=== PATIENT | male | born 1955 | race Caucasian/White ===

== ENCOUNTER 2016-09-22 16:08 | Emergency (ER) | payer OTHER ==
[2016-09-22] MEDS ORDERED: NS 0.9% 1000 ML* 1,000 ML IV SCH (16:45)
[2016-09-22 17:09] LABS: Hematocrit 47 % (42-52); Hemoglobin 15.8 g/dl (14.0-18.0); Mean Corpuscular HGB Conc 34 g/dl (31-36); Mean Corpuscular Hemoglobin 29 pg (27-31); Mean Corpuscular Volume 87 fL (80-94); Mean Platelet Volume 9 um3 (7.4-10.4); Red Blood Count 5.41 10^6/ul (4.0-5.4); Red Cell Distribution Width 14 % (10.5-15); White Blood Count 8.9 10^3/ul (3.5-10.8)
[2016-09-22 17:39] LABS: Albumin 4.6 g/dL (3.2-5.2); BUN/Creatinine Ratio 17.1 (8-20); C Reactive Protein 3.55 mg/L (< 5.00); Calcium 9.9 mg/dL (8.6-10.3); EGFR African American 81.5 (>60); EGFR Non-African American 63.4 (>60); Globulin 3.6 g/dL (2-4); Total Bilirubin 0.5 mg/dL (0.2-1.0); Total Protein 8.2 g/dL (6.4-8.9)
[2016-09-22 17:42] LABS: Potassium 3.6 mmol/L (3.5-5.0)
[2016-09-22 17:52] LABS: TSH (Thyroid Stimulating Horm) 1.9 mcIU/mL (0.34-5.60)
--- NOTE | 2016-09-22 18:00 | RAD ---
Edited for charges. indication: Right-sided head and neck pain COMPARISON: CT of the brain dated July 14, [address] scan of the brain and c-spine was performed without intravenous contrast enhancement. Contiguous axial sections were obtained from the lung apices through the vertex. BRAIN: The ventricles, cisterns and sulci are within normal limits. No significant focal abnormality or mass effect is seen. The vázquez-white differentiation is adequately maintained. There is no evidence for intracranial hemorrhage. No significant bony abnormality is present. The mastoid air cells are appropriately aerated. The visualized paranasal sinuses are clear. C-SPINE: On the sagittal view images the vertebral bodies and bilateral facet joints are correctly aligned. The dens is intact and the atlantoaxial interval is not widened. Mild degenerative changes of the cervical spine include loss of intervertebral disc height. There is no hyperdense material in the cervical canal to indicate hemorrhage. The visualized musculature and soft tissues are normal. There is no gross lymphadenopathy visualized. Coarse atherosclerotic calcification is noted at the right worse than left carotid bulbs and at the visualized portions of the aortic arch. The visualized portion of the lung apices are clear. IMPRESSION: 1. No calvarial fracture or acute intracranial hemorrhage. 2. Mild multilevel degenerative changes of the cervical spine without evidence of acute fracture or dislocation. MTDD
[2016-09-22] MEDS ORDERED: Iohexol 350* (CONTRAST) 500 ML MDV IV ONE ×2 (18:30→18:33)
[2016-09-22] MEDS ORDERED: diPHENhydraMINE IV* 50 MG/ML 1 ml VIAL (BENADRYL) ONE (18:48)
[2016-09-22] MEDS ORDERED: diPHENhydraMINE IV* 50 MG/ML 1 ml VIAL (BENADRYL) IV ONE (18:48)
[2016-09-22] MEDS ORDERED: methylPREDNISolone 125 MG* 2 ML VIAL IV ONE (18:48)
[2016-09-22] MEDS ORDERED: NS 0.9% 1000 ML* 1,000 ML IV ONE (18:48)
[2016-09-22] MEDS ORDERED: methylPREDNISolone 125 MG* 2 ML VIAL ONE (18:49)
[2016-09-22] MEDS ORDERED: Aspirin Low Dose CHEW TAB* 81 MG PO ONE (18:55)
[2016-09-22] MEDS ORDERED: Potassium Chlor TAB* 20 MEQ TAB.ER PO ONE (18:55)
[2016-09-22] MEDS ORDERED: Aspirin Low Dose CHEW TAB* 81 MG ONE (18:57)
--- NOTE | 2016-09-22 19:00 | RAD ---
INDICATION: Chest pain COMPARISON: CTA chest, abdomen and pelvis dated August 12, 2015 TECHNIQUE: Axial source images were acquired following the administration of 83 mL Omnipaque [address] angiographic technique. Coronal and sagittal reconstructed images were constructed and reviewed. FINDINGS: There there are no filling defects in the pulmonary arteries to indicate acute pulmonary embolic disease. There are mild bibasilar hypoventilatory changes as well as pleural-based based linear density at the lateral right lung base. There are no focal infiltrates or effusions. There are no pulmonary parenchymal masses. The heart is normal in size. There is no evidence of pericardial effusion. There is no evidence of aortic aneurysm or dissection. There is no mediastinal, hilar, or axillary lymphadenopathy. Mild degenerative changes of the thoracic spine include loss of intervertebral disc height. There is a small hiatal hernia. Limited views of the upper abdomen show no abnormalities. IMPRESSION: No CT of evidence of pulmonary embolism or other acute thoracic abnormality.
[2016-09-22 19:35] LABS: Urine Bilirubin Negative (Negative); Urine Glucose Negative (Negative); Urine Nitrite Negative (Negative)
--- NOTE | 2016-09-22 20:28 | RAD ---
CPT II: CPT II Codes: 3100F INDICATION: Right occiput and neck pain COMPARISON: None TECHNIQUE: A CT angiogram of the head and neck was performed with 80 cc of Omnipaque 350. Contiguous axial sections were obtained from the thoracic inlet through the [place]. Images were reconstructed in the sagittal, coronal planes and in a 3-D volume rendered format. The distal cervical internal carotid artery diameter is used as the denominater for stenosis measurement. CTA NECK: There is appearance of either narrowing or focal occlusion of the proximal left subclavian artery (axial image 21 and coronal image 17). Alternatively this appearance could be the consequence of streak artifact from the contrast-filled neighboring left subclavian and brachiocephalic veins. The common and internal carotid arteries are patent without hemodynamically significant stenosis. Right: Below the bifurcation the common carotid artery measures 7 mm in diameter. There is coarsely calcified atherosclerosis of the carotid bulb that narrows the right internal carotid artery to approximately 3.7 cm in diameter. This yields approximately 50% narrowing at this location. Distally there is adequate filling of the internal carotid artery. Left: Below the bifurcation the left common carotid artery measures 7 mm in diameter and immediately beyond the bifurcation the left internal carotid artery measures 5 mm in diameter yielding approximately 28% degree narrowing. The vertebral arteries are patent without gross abnormality. CTA of the brain: The left anterior cerebral artery is extremely diminutive relative to the right. The left anterior communicating artery of the [place] (image 210 through 212) is extremely diminutive. Bilaterally the MCA fill adequately with contrast. The more distal branches of the left MCA seen to exhibit a slight reduction in filling relative to the contralateral side. The left posterior communicating artery appears to be absent. The vertebral, basilar and posterior cerebral arteries appear patent without high grade stenosis or occlusion. No focal aneurysm or vascular malformation is seen. IMPRESSION: 1. Coarsely calcified atherosclerosis at the right carotid bulb causes approximately 50% luminal narrowing. Further objective evidence of hemodynamically significant stenosis can be obtained with nonemergent carotid ultrasound. 2. Questionable filling defect at the origin of the left subclavian artery. Please correlate to signs and symptoms of subclavian steal syndrome as well as any potential flow reversal identified in the left vertebral artery on carotid ultrasound. 3. The left anterior cerebral artery and anterior communicating artery of the [place] are extremely diminutive relative to the contralateral side. Furthermore, there is an overall appearance of reduced arterial filling in the distal branches of the left MCA distribution relative to the right. If the patient is exhibiting focal neurologic deficits objective evidence of acute infarction can be made with MRI of the brain.
--- NOTE | 2016-09-22 22:38 | RAD ---
HISTORY: Chest pain that radiates to the right shoulder COMPARISONS: CT abdomen pelvis August 12, 2015 TECHNIQUE: Multiple transverse and longitudinal ultrasound images were obtained of the right upper quadrant. FINDINGS: LIVER: The liver is normal in dimensions and echogenicity. Normal hepatic and portal venous blood flow is duplicated with color flow imaging. There is no gross intrahepatic biliary duct dilatation. GALLBLADDER AND EXTRAHEPATIC BILIARY DUCT: The gallbladder is normal in appearance without intraluminal stones or other soft tissue masses. There is no pericholecystic fluid or gallbladder wall thickening. The common bile duct measures a maximum diameter of 3 mm. PANCREAS: No meaningful evaluation of the pancreas isn't evaluated due to overlying bowel gas. RIGHT KIDNEY: The right kidney is normal in size, morphology and echogenicity. IMPRESSION: Normal ultrasound of the right upper quadrant.
--- NOTE | 2016-09-22 23:10 | ED ---
Tu Ness Rebecca, scribed for Jelani Dawson MD on 09/22/16 at 1638 . Headache - HPI Summary HPI Summary: Pt is a 61 y/o M who presents to ED c/o GARZA. GARZA began gradually this morning and has been intermittent since onset. GARZA is in the right temporal region with radiation into the neck and back. GARZA is characterized as tightness and currently , GARZA is resolved. GARZA aggravated by woodworking, alleviated by spontaneous resolution. Additionally c/o decreased sensation on the scalp, dizziness and intermittent CP for 5 days. CP is midsternal, characterized as pressure. Experienced CP earlier today. Sx aggravated by stress, alleviated by eating. Denies numbness, abdominal pain, calf pain, SOB and diaphoresis. Takes Metoprolol (25 mg), ASA, Xanax. Radiotelegraphist is Dr. Cadte, who ran a nuclear stress test in February. PSHx cardiac stent (2006). PMHx herniated discs in the C-spine. - History Of Current Complaint Chief Complaint: EDChestPainROMI Stated Complaint: HEADACHE Time Seen by Provider: 09/22/16 16:23 Hx Obtained From: Patient Onset/Duration: Gradual Onset Initially Headache Was: Initial Pain Scale(0-10)= - 6/10, Moderate Currently Pain Is: Current Pain Scale(0-10)= - 0/10 Timing: Intermittent, Lasting: Location of Headache: Temporal - Right Radiates to: Neck and back Aggravating Factor: Other - Woodworking Allevating Factors: Other (Noted In Comments) - Spontaneous resolution Associated Signs And Symptoms: Dizziness, Other (Noted In Comments) - Intermittent CP - Allergies/Home Medications Allergies/Adverse Reactions: Allergies Allergy/AdvReac Type Severity Reaction Status Date / Time Tetracycline Allergy Mild Itching Verified 02/24/16 13:18 [place] Allergy Unknown Unknown Verified 02/24/16 13:[address] dye Allergy aggitation Uncoded 09/22/16 19:37 PMH/Surg Hx/FS Hx/Imm Hx Endocrine/Hematology History: Denies: Hx Diabetes Cardiovascular History: 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, midsternal, upper ribs Denies: Hx Congestive Heart Failure, Hx Coronary Artery Disease, Hx Hypercholesterolemia, Hx Hypertension, Hx Myocardial Infarction, Hx Pacemaker/ ICD, Hx Valvular Heart Disease Respiratory History: Denies: Hx Asthma, Hx Chronic Obstructive Pulmonary Disease (COPD) History: Denies: Hx Dialysis, Hx Renal Disease Musculoskeletal History: Reports: Other Musculoskeletal History - Herniated discs in the C-spine Sensory History: Reports: Hx Contacts or Glasses Denies: Hx Hearing Aid Opthamlomology History: Reports: Hx Contacts or Glasses Psychiatric History: Denies: Hx Panic Disorder - Surgical History Surgery Procedure, Year, and Place: cardiac stent 2006 TAXIS EXPRESS CLEARED FOR 1.5 OR 3T SGF 700G/CM PER [place] IN NORMAL OPERATING SCAN MODE Infectious Disease History: No Infectious Disease History: Denies: Traveled Outside the [place] in Last 30 Days - Family History Known Family History: Negative: Cardiac Disease, Hypertension - Social History Alcohol Use: None Substance Use Type: Reports: None Smoking Status (MU): Never Smoked Tobacco Review of Systems Negative: Skin Diaphoresis Positive: Chest Pain - Intermittent Negative: Shortness Of Breath Negative: Abdominal Pain Positive: Other - Denies calf pain Neurological: Other - Decreased sensation on the scalp, dizziness Positive: Headache - intermittent, currently resolved. Negative: Numbness All Other Systems Reviewed And Are Negative: Yes Physical Exam Triage Information Reviewed: Yes Vital Signs On Initial Exam: Initial Vitals Temp Pulse Resp BP Pulse Ox 99.4 F 125 16 157/95 98 09/22/16 16:15 09/22/16 16:15 09/22/16 16:15 09/22/16 16:15 09/22/16 16:15 Vital Signs Reviewed: Yes Appearance: Positive: Well-Appearing, No Pain Distress Skin: Positive: Warm, Skin Color Reflects Adequate Perfusion, Dry Head/Face: Positive: Normal Head/Face Inspection Eyes: Positive: EOMI, LESIA ENT: Positive: Normal ENT inspection Neck: Positive: Supple, Nontender Respiratory/Lung Sounds: Positive: Clear to Auscultation, Breath Sounds Present Cardiovascular: Positive: RRR Abdomen Description: Positive: Nontender, Soft Bowel Sounds: Positive: Present Musculoskeletal: Positive: Normal, Strength/ROM Intact Neurological: Positive: Normal, Sensory/Motor Intact, Alert, Oriented to Person Place, Time Psychiatric: Positive: Affect/Mood Appropriate Diagnostics - Vital Signs Vital Signs Temp Pulse Resp BP Pulse Ox 09/22/16 16:15 99.4 F 125 16 157/95 98 - Laboratory Lab Results: Lab Results 09/22/16 09/22/1617 Range/Units 16:40 16:40 16:40 WBC 8.9 (3.5-10.8) 10^3/ul RBC 5.41 H (4.0-5.4) 10^6/ul Hgb 15.8 (14.0-18.0) g/dl Hct 47 (42-52) % MCV 87 (80-94) fL MCH 29 (27-31) pg MCHC 34 (31-36) g/dl RDW 14 (10.5-15) % Plt Count 234 (150-450) 10^3/ul MPV 9 (7.4-10.4) um3 Neut % (Auto) 69.0 (38-83) % Lymph % (Auto) 21.3 L (25-47) % [place] % (Auto) 7.6 (1-9) % Eos % (Auto) 1.7 (0-6) % Baso % (Auto) 0.4 (0-2) % Absolute Neuts (auto) 6.2 (1.5-7.7) 10^3/ul Absolute Lymphs (auto) 1.9 (1.0-4.8) 10^3/ul Absolute Monos (auto) 0.7 (0-0.8) 10^3/ul Absolute Eos (auto) 0.2 (0-0.6) 10^3/ul Absolute Basos (auto) 0 (0-0.2) 10^3/ul Absolute Nucleated RBC 0 10^3/ul Nucleated RBC % 0 INR (Anticoag Therapy) 0.91 (0.89-1.11) APTT 29.1 (26.0-36.3) seconds D-Dimer, Quantitative 261 H (Less Than 230) ng/mL Sodium 136 (133-145) mmol/L Potassium 3.6 (3.5-5.0) mmol/L Chloride 104 (101-111) mmol/L Carbon Dioxide 26 (22-32) mmol/L Anion Gap 6 (2-11) mmol/L BUN 20 (6-24) mg/dL Creatinine 1.17 (0.67-1.17) mg/dL Est GFR ( Amer) 81.5 (>60) Est GFR (Non-Af Amer) 63.4 (>60) BUN/Creatinine Ratio 17.1 (8-20) Glucose 97 (70-100) mg/dL Lactic Acid (0.5-2.0) mmol/L Calcium 9.9 (8.6-10.3) mg/dL Magnesium 2.0 (1.9-2.7) mg/dL Total Bilirubin 0.50 (0.2-1.0) mg/dL AST 40 H (13-39) U/L ALT 22 (7-52) U/L Alkaline Phosphatase 95 (34-104) U/L Total Creatine Kinase 383 H (10-223) U/L CK-MB (CK-2) 4.0 (0.6-6.3) ng/mL Troponin I 0.00 (<0.04) ng/mL C-Reactive Protein 3.55 (< 5.00) mg/L B-Natriuretic Peptide ( - 100) pg/mL Total Protein 8.2 (6.4-8.9) g/dL Albumin 4.6 (3.2-5.2) g/dL Globulin 3.6 (2-4) g/dL Albumin/Globulin Ratio 1.3 (1-3) Lipase 21 (11.0-82.0) U/L TSH 1.90 (0.34-5.60) mcIU/mL Urine Color Urine Appearance Urine pH (5-9) Ur Specific [place] (1.010-1.030) Urine Protein (Negative) Urine Ketones (Negative) Urine Blood (Negative) Urine Nitrate (Negative) Urine Bilirubin (Negative) Urine Urobilinogen (Negative) Ur Leukocyte Esterase (Negative) Urine Glucose (Negative) 09/22/16 09/22/16 09/22/16 Range/Units 16:40 16:40 19:20 WBC (3.5-10.8) 10^3/ul RBC (4.0-5.4) 10^6/ul Hgb (14.0-18.0) g/dl Hct (42-52) % MCV (80-94) fL MCH (27-31) pg MCHC (31-36) g/dl RDW (10.5-15) % Plt Count (150-450) 10^3/ul MPV (7.4-10.4) um3 Neut % (Auto) (38-83) % Lymph % (Auto) (25-47) % [place] % (Auto) (1-9) % Eos % (Auto) (0-6) % Baso % (Auto) (0-2) % Absolute Neuts (auto) (1.5-7.7) 10^3/ul Absolute Lymphs (auto) (1.0-4.8) 10^3/ul Absolute Monos (auto) (0-0.8) 10^3/ul Absolute Eos (auto) (0-0.6) 10^3/ul Absolute Basos (auto) (0-0.2) 10^3/ul Absolute Nucleated RBC 10^3/ul Nucleated RBC % INR (Anticoag Therapy) (0.89-1.11) APTT (26.0-36.3) seconds D-Dimer, Quantitative (Less Than 230) ng/mL Sodium (133-145) mmol/L Potassium (3.5-5.0) mmol/L Chloride (101-111) mmol/L Carbon Dioxide (22-32) mmol/L Anion Gap (2-11) mmol/L BUN (6-24) mg/dL Creatinine (0.67-1.17) mg/dL Est GFR ( Amer) (>60) Est GFR (Non-Af Amer) (>60) BUN/Creatinine Ratio (8-20) Glucose (70-100) mg/dL Lactic Acid 1.0 (0.5-2.0) mmol/L Calcium (8.6-10.3) mg/dL Magnesium (1.9-2.7) mg/dL Total Bilirubin (0.2-1.0) mg/dL AST (13-39) U/L ALT (7-52) U/L Alkaline Phosphatase (34-104) U/L Total Creatine Kinase (10-223) U/L CK-MB (CK-2) (0.6-6.3) ng/mL Troponin I (<0.04) ng/mL C-Reactive Protein (< 5.00) mg/L B-Natriuretic Peptide 23 ( - 100) pg/mL Total Protein (6.4-8.9) g/dL Albumin (3.2-5.2) g/dL Globulin (2-4) g/dL Albumin/Globulin Ratio (1-3) Lipase (11.0-82.0) U/L TSH (0.34-5.60) mcIU/mL Urine Color Yellow Urine Appearance Clear Urine pH 5.0 (5-9) Ur Specific [place] 1.033 H (1.010-1.030) Urine Protein Negative (Negative) Urine Ketones Negative (Negative) Urine Blood Negative (Negative) Urine Nitrate Negative (Negative) Urine Bilirubin Negative (Negative) Urine Urobilinogen Negative (Negative) Ur Leukocyte Esterase Negative (Negative) Urine Glucose Negative (Negative) 09/22/16 Range/Units 21:05 WBC (3.5-10.8) 10^3/ul RBC (4.0-5.4) 10^6/ul Hgb (14.0-18.0) g/dl Hct (42-52) % MCV (80-94) fL MCH (27-31) pg MCHC (31-36) g/dl RDW (10.5-15) % Plt Count (150-450) 10^3/ul MPV (7.4-10.4) um3 Neut % (Auto) (38-83) % Lymph % (Auto) (25-47) % [place] % (Auto) (1-9) % Eos % (Auto) (0-6) % Baso % (Auto) (0-2) % Absolute Neuts (auto) (1.5-7.7) 10^3/ul Absolute Lymphs (auto) (1.0-4.8) 10^3/ul Absolute Monos (auto) (0-0.8) 10^3/ul Absolute Eos (auto) (0-0.6) 10^3/ul Absolute Basos (auto) (0-0.2) 10^3/ul Absolute Nucleated RBC 10^3/ul Nucleated RBC % INR (Anticoag Therapy) (0.89-1.11) APTT (26.0-36.3) seconds D-Dimer, Quantitative (Less Than 230) ng/mL Sodium (133-145) mmol/L Potassium (3.5-5.0) mmol/L Chloride (101-111) mmol/L Carbon Dioxide (22-32) mmol/L Anion Gap (2-11) mmol/L BUN (6-24) mg/dL Creatinine (0.67-1.17) mg/dL Est GFR ( Amer) (>60) Est GFR (Non-Af Amer) (>60) BUN/Creatinine Ratio (8-20) Glucose (70-100) mg/dL Lactic Acid (0.5-2.0) mmol/L Calcium (8.6-10.3) mg/dL Magnesium (1.9-2.7) mg/dL Total Bilirubin (0.2-1.0) mg/dL AST (13-39) U/L ALT (7-52) U/L Alkaline Phosphatase (34-104) U/L Total Creatine Kinase (10-223) U/L CK-MB (CK-2) (0.6-6.3) ng/mL Troponin I 0.01 (<0.04) ng/mL C-Reactive Protein (< 5.00) mg/L B-Natriuretic Peptide ( - 100) pg/mL Total Protein (6.4-8.9) g/dL Albumin (3.2-5.2) g/dL Globulin (2-4) g/dL Albumin/Globulin Ratio (1-3) Lipase (11.0-82.0) U/L TSH (0.34-5.60) mcIU/mL Urine Color Urine Appearance Urine pH (5-9) Ur Specific [place] (1.010-1.030) Urine Protein (Negative) Urine Ketones (Negative) Urine Blood (Negative) Urine Nitrate (Negative) Urine Bilirubin (Negative) Urine Urobilinogen (Negative) Ur Leukocyte Esterase (Negative) Urine Glucose (Negative) Result Diagrams: 09/22/16 16:40 09/22/16 16:40 Lab Statement: Any lab studies that have been ordered have been reviewed, and results considered in the medical decision making process. - CT Brain CT CT Interpretation Completed By: Radiologist - 1. No calvarial fracture or acute intracranial hemorrhage. 2. Mild multilevel degenerative changes of the cervical spine without evidence of acute fracture or dislocation. Chest/Thorax CTA CT Interpretation Completed By: Radiologist - No CT of evidence of pulmonary embolism or other acute thoracic abnormality. Head CTA CT Interpretation Completed By: Radiologist - 1. Coarsely calcified atherosclerosis at the right carotid bulb causes approximately 50% luminal narrowing. Further objective evidence of hemodynamically significant stenosis can be obtained with nonemergent carotid ultrasound. 2. Questionable filling defect at the origin of the left subclavian artery. Please correlate to signs and symptoms of subclavian steal syndrome as well as any potential flow reversal identified in the left vertebral artery on carotid ultrasound. 3. The left anterior cerebral artery and anterior communicating artery of the [place] are extremely diminutive relative to the contralateral side. Furthermore, there is an overall appearance of reduced arterial filling in the distal branches of the left MCA distribution relative to the right. If the patient is exhibiting focal neurologic deficits objective evidence of acute infarction can be made with MRI of the brain. - Ultrasound No standard instances Ultrasound Interpretation Completed By: Radiologist - Gallbladder US - Normal ultrasound of the right upper quadrant. - EKG 1703 Cardiac Rate: Tachycardia - 106 bpm EKG Rhythm: Sinus Tachycardia ST Segment: Non-Specific - Flipped T wave in leads III and aVF EKG Interpretation: No acute ischemia 1843 Cardiac Rate: Tachycardia - 126 bpm EKG Rhythm: Sinus Tachycardia ST Segment: Non-Specific - Depressed STs in V2-V5 Ectopy: None Re-Evaluation - Re-Evaluation First Eval Re-Evaluation Time: 18:45 Change: Worse Comment: Pt reports that after the second contrast injection, he began experiencing chest pain as well as UE and LE spasms, which he states as having occurred in the past. Pt was administered Benadryl and Solu-Medrol. Second Eval Re-Evaluation Time: 19:06 Change: Worse Comment: CP has resolved but now he is speaking slowly. Third Eval Re-Evaluation Time: 19:16 Change: Improved Comment: Pt reports he is feeling better. Fourth Eval Re-Evaluation Time: 21:45 Change: Improved Comment: Discussed current results and findings. Pt is feeling significantly better than previously. Fifth Eval Re-Evaluation Time: 23:06 Change: Improved Comment: Pt is doing markedly better. Discussed D/C plan with pt who understands and is agreeable with this plan. Headache Course/Dx - Course Assessment/Plan: DISCUSSED RESULTS WITH PATIENT/. PATIENT RELATES HE HAS HAD SIMILAR CHEST PAINS ON AND OFF FOR YEARS. GARZA GONE IN ED. DISCUSSED CTA HEAD/ NECK RESULTS WITH DR FANG, NEUROLOGY. PATIENT WILL CONTACT HIS MEDICAID BILLER FOR F/U AND WILL RETURN IF WORSE. DISCHARGE HOME STABLE. - Diagnoses Provider Diagnoses: Chest pain, Head ache - Physician Notifications Discussed Care Of Patient With: Dr. Peck, hospitalist, who will ask Dr. Osullivan (night hospitalist) to evaluate pt. Dr. Osullivan at 2010 who suggests a repeat Troponin be taken. Discussed CTA head/neck results with Dr. Fang, neurologist, at 2124, who stated that he could not correlate any of the complaints of the patient with the scan findings. Time Discussed With Above Provider: 19:07 Discharge - Discharge Plan Condition: Stable Disposition: HOME Patient Education Materials: Chest Pain (ED), Neck Pain (ED), General Headache (ED) Referrals: [facility] [employer]AD[facility]leen [Primary Care Provider] - Additional Instructions: FOLLOW UP WITH YOUR PRIMARY CARE DOCTOR AND YOUR MEDICAID BILLER. RETURN TO THE EMERGENCY DEPARTMENT FOR ANY WORSENING OF YOUR CONDITION OR QUESTIONS OR CONCERNS. The documentation as recorded by the Tu marroquin Rebecca accurately reflects the service I personally performed and the decisions made by me, Jelani Dawson MD.
[2016-09-22 23:49] VITALS: BP 135/75
== END 2016-09-22 23:47 | disposition home or self-care (01) ==
LOC: ED 16:08
DX: R51 Headache (principal); R42 Dizziness and giddiness; R07.9 Chest pain, unspecified
CPT/HCPCS: 36415; 70450; 70496; 70498; 71275; 72125; 76705; 80053; 81003; 82550; 82553; 83605; 83690; 83735; 83880; 84443; 84484; 85025; 85379; 85610; 85730; 86140; 93005; 96374; 96375; 99284; A9270-GY; J1200; J2930; Q9967

== ENCOUNTER 2016-09-23 20:10 | Inpatient (IN) | payer OTHER ==
[2016-09-23] MEDS ORDERED: Morphine INJ* 4 MG/ML 1 ML CARPUJECT ONE (20:15)
[2016-09-23] MEDS ORDERED: Morphine INJ* 4 MG/ML 1 ML CARPUJECT IV ONE (20:15)
[2016-09-23] MEDS ORDERED: LORazepam INJ* 2 MG/ML 1 ML VIAL ONE (20:15)
[2016-09-23] MEDS ORDERED: LORazepam INJ* 2 MG/ML 1 ML VIAL IV PUSH ONE (20:16)
[2016-09-23] MEDS ORDERED: Heparin for STEMI(*) 5,000 UNITS/ML 1 ML VIAL IV ONE (20:17)
[2016-09-23] MEDS ORDERED: Heparin VIAL(*) 5000 UNITS/ML VIAL (FIVE THOUSAND) ONE (20:17)
[2016-09-23] MEDS ORDERED: Ticagrelor* 90 MG TAB PO ONE ×2 (20:17)
[2016-09-23 20:22] LABS: Hematocrit 42 % (42-52); Hemoglobin 14.1 g/dl (14.0-18.0); Mean Corpuscular HGB Conc 34 g/dl (31-36); Mean Corpuscular Hemoglobin 29 pg (27-31); Mean Corpuscular Volume 87 fL (80-94); Mean Platelet Volume 8 um3 (7.4-10.4); Red Blood Count 4.84 10^6/ul (4.0-5.4); Red Cell Distribution Width 14 % (10.5-15); White Blood Count 20.8 10^3/ul (3.5-10.8)
[2016-09-23 20:25] LABS: Add Diff/Slide Review? Slide Review Added; Comments Flag Yes
[2016-09-23] MEDS ORDERED: Heparin 2 UNITS/ML IVPREMIX* 3,000 ML IV ONE (20:30)
[2016-09-23] MEDS ORDERED: Iohexol 350 (CONTRAST) 200 ML MDV IV ONE (20:30)
[2016-09-23] MEDS ORDERED: Lidocaine 1% INJ* 10 MG/ML 30 ML SDV ONE (20:30)
[2016-09-23] MEDS ORDERED: methylPREDNISolone 125 MG* 2 ML VIAL ONE (20:36)
[2016-09-23 20:38] LABS: Albumin 4.1 g/dL (3.2-5.2); BUN/Creatinine Ratio 16.1 (8-20); EGFR African American 80.7 (>60); EGFR Non-African American 62.8 (>60); Globulin 2.9 g/dL (2-4); Potassium 3.4 mmol/L (3.5-5.0); Total Bilirubin 0.4 mg/dL (0.2-1.0)
[2016-09-23 20:39] LABS: Troponin I 0.01 ng/mL (<0.04)
--- NOTE | 2016-09-23 20:40 | RAD ---
Indication: Chest pain, shortness of breath. STEMI. September 22, 2016 CT. Comparison: September 22, 2016 CT. Technique: Upright AP 2021 hours Report: Cutaneous pacemaker pads in place. Mild cardiomegaly. Unremarkable central pulmonary vasculature. Grossly clear lungs and pleural spaces. IMPRESSION: Mild cardiomegaly without compelling evidence for pulmonary edema.
[2016-09-23] MEDS ORDERED: Iodixanol* (CONTRAST) 320 MG/ML 100 ML SDV ONE (20:44)
--- NOTE | 2016-09-23 20:45 | ED ---
Chandrakant Ness Benjamin, scribed for Joey Coulter MD on 09/23/16 at 202 . HPI Chest Pain - HPI Summary HPI Summary: 61yo male BIB EMS for severe CP. Per EMS, pain initially started with burning sensation at mid sternal chest that wrapped around to right armpit. Pt was seen at [facility] ED yesterday for GARZA. Unable to obtain full history due to pt in pain. EKG taken by EMS shown STEMI at V2 and V3. - History of Current Complaint Chief Complaint: EDChestPainROMI Hx Obtained From: EMS Hx From Patient Unobtainable Due To: Extremis Onset/Duration: Started Hours Ago, Still Present Timing: Constant Initial Severity: Severe Current Severity: Severe Pain Intensity: 10 Chest Pain Location: Mid Sternal Chest Pain Radiates: Yes Chest Pain Radiates To:: Arm - right Character: Burning Aggravating Factor(s): Nothing Alleviating Factor(s): Nothing Associated Signs and Symptoms: Positive: Shortness of Breath - Risk Factors AMI/ACS Risk Factors: Myocardial Infarction - Additional Pertinent History Previous Visit Within 72 Hours for the same complaint: ED - Allergy/Home Medications Allergies/Adverse Reactions: Allergies Allergy/AdvReac Type Severity Reaction Status Date / Time Tetracycline Allergy Mild Itching Verified 02/24/16 13:18 Belladonna Allergy Unknown Unknown Verified 02/24/16 13:[address] dye Allergy aggitation Uncoded 09/22/16 19:37 PMH/Surg Hx/FS Hx/Imm Hx Previously Healthy: No Endocrine/Hematology History: Denies: Hx Diabetes Cardiovascular History: 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, midsternal, upper ribs Denies: Hx Congestive Heart Failure, Hx Coronary Artery Disease, Hx Hypercholesterolemia, Hx Hypertension, Hx Myocardial Infarction, Hx Pacemaker/ ICD, Hx Valvular Heart Disease Respiratory History: Denies: Hx Asthma, Hx Chronic Obstructive Pulmonary Disease (COPD) History: Denies: Hx Dialysis, Hx Renal Disease Musculoskeletal History: Reports: Other Musculoskeletal History - Herniated discs in the C-spine Sensory History: Reports: Hx Contacts or Glasses Denies: Hx Hearing Aid Opthamlomology History: Reports: Hx Contacts or Glasses Psychiatric History: Denies: Hx Panic Disorder - Surgical History Surgery Procedure, Year, and Place: cardiac stent 2006 TAXIS EXPRESS CLEARED FOR 1.5 OR 3T SGF 700G/CM PER [employer] IN NORMAL OPERATING SCAN MODE - Family History Known Family History: Positive: Unknown Negative: Cardiac Disease, Hypertension - Social History Alcohol Use: None Substance Use Type: Reports: None Smoking Status (MU): Never Smoked Tobacco Review of Systems Constitutional: Negative Eyes: Negative ENT: Negative Positive: Chest Pain Positive: Shortness Of Breath Gastrointestinal: Negative Genitourinary: Negative Musculoskeletal: Negative Skin: Negative Neurological: Negative Psychological: Normal All Other Systems Reviewed And Are Negative: Yes Physical Exam Triage Information Reviewed: Yes Vital Signs On Initial Exam: Initial Vitals Resp 20 09/23/16 20:25 Vital Signs Reviewed: Yes Appearance: Positive: Ill-Appearing, Pain Distress - moderate pain Skin: Positive: Warm, Diaphoretic Head/Face: Positive: Normal Head/Face Inspection Eyes: Positive: LESIA ENT: Positive: Hearing grossly normal Neck: Positive: Supple Respiratory/Lung Sounds: Positive: Clear to Auscultation, Breath Sounds Present Cardiovascular: Positive: RRR Abdomen Description: Positive: Nontender, No Organomegaly, Soft Bowel Sounds: Positive: Present Musculoskeletal: Positive: Strength/ROM Intact Neurological: Positive: Sensory/Motor Intact, Alert, Oriented to Person Place, Time Psychiatric: Positive: Anxious Diagnostics - Vital Signs Vital Signs Temp Pulse Resp BP Pulse Ox 09/23/16 20:28 98.7 F 71 22 135/77 100 09/23/16 20:25 20 - Laboratory Lab Results: Lab Results 09/23/16 09/23/16 09/23/16 Range/Units 20:12 20:12 20:12 WBC 20.8 H (3.5-10.8) 10^3/ul RBC 4.84 (4.0-5.4) 10^6/ul Hgb 14.1 (14.0-18.0) g/dl Hct 42 (42-52) % MCV 87 (80-94) fL MCH 29 (27-31) pg MCHC 34 (31-36) g/dl RDW 14 (10.5-15) % Plt Count 281 (150-450) 10^3/ul MPV 8 (7.4-10.4) um3 Neut % (Auto) 68.0 (38-83) % Lymph % (Auto) 22.3 L (25-47) % Platte % (Auto) 8.9 (1-9) % Eos % (Auto) 0.3 (0-6) % Baso % (Auto) 0.5 (0-2) % Absolute Neuts (auto) 14.1 H (1.5-7.7) 10^3/ul Absolute Lymphs (auto) 4.6 (1.0-4.8) 10^3/ul Absolute Monos (auto) 1.9 H (0-0.8) 10^3/ul Absolute Eos (auto) 0.1 (0-0.6) 10^3/ul Absolute Basos (auto) 0.1 (0-0.2) 10^3/ul Absolute Nucleated RBC 0 10^3/ul Nucleated RBC % 0 Sodium 138 (133-145) mmol/L Potassium 3.4 L (3.5-5.0) mmol/L Chloride 107 (101-111) mmol/L Carbon Dioxide 21 L (22-32) mmol/L Anion Gap 10 (2-11) mmol/L BUN 19 (6-24) mg/dL Creatinine 1.18 H (0.67-1.17) mg/dL Est GFR ( Amer) 80.7 (>60) Est GFR (Non-Af Amer) 62.8 (>60) BUN/Creatinine Ratio 16.1 (8-20) Glucose 132 H (70-100) mg/dL Lactic Acid 2.1 H* (0.5-2.0) mmol/L Calcium 9.0 (8.6-10.3) mg/dL Total Bilirubin 0.40 (0.2-1.0) mg/dL AST 34 (13-39) U/L ALT 19 (7-52) U/L Alkaline Phosphatase 77 (34-104) U/L Troponin I 0.01 (<0.04) ng/mL Total Protein 7.0 (6.4-8.9) g/dL Albumin 4.1 (3.2-5.2) g/dL Globulin 2.9 (2-4) g/dL Albumin/Globulin Ratio 1.4 (1-3) Result Diagrams: 09/23/16 20:12 09/23/16 20:12 Lab Statement: Any lab studies that have been ordered have been reviewed, and results considered in the medical decision making process. - Radiology CXR Xray Interpretation: No Acute Changes - mild cardiomegaly Radiology Interpretation Completed By: Radiologist - EKG 2004. Cardiac Rate: NL - 62bpm EKG Interpretation: anterial wall ST elevation Chest Pain Course/Dx - Chest Pain Differential Diagnosis/HQI/PQRI: Acute FL, ACS - Diagnoses Provider Diagnoses: STEMI (ST elevation myocardial infarction) During the Visit The Following Alert/Code Occurred: STEMI - Provider Notifications Instructed by Provider To: Admit As Inpatient - Critical Care Time Critical Care Time: 30-74 min Discharge - Discharge Plan Condition: Critical Disposition: ADMITTED TO [facility] documentation as recorded by the Chandrakant marroquin Benjamin accurately reflects the service I personally performed and the decisions made by Yfn haley David, MD.
[2016-09-23] MEDS ORDERED: methylPREDNISolone 125 MG* 2 ML VIAL IV ONE (20:49)
[2016-09-23] MEDS ORDERED: Bivalirudin(*) 250 MG VIAL ONE (20:55)
[2016-09-23] MEDS ORDERED: Amiodarone IV VIAL* 3 ML ONE (21:07)
[2016-09-23] MEDS ORDERED: Amiodarone 360 MG IVPREMIX* 360 MG/200 ML BAG IV ONE (21:08)
[2016-09-23] MEDS ORDERED: Ondansetron INJ* 2 MG/ML VIAL ONE (21:46)
[2016-09-23] MEDS ORDERED: Nitroglycerin TAB 0.4 MG* 0.4 MG TAB SL PRN (21:49)
[2016-09-23] MEDS ORDERED: Docusate CAP* 100 MG PO PRN (21:49)
[2016-09-23] MEDS ORDERED: Ondansetron INJ* 2 MG/ML VIAL IV PRN (21:49)
[2016-09-23] MEDS ORDERED: NS 0.9% 1000 ML* 1,000 ML IV SCH (22:00)
[2016-09-23] MEDS ORDERED: Amiodarone 360 MG IVPREMIX* 360 MG/200 ML BAG IV SCH (22:00)
[2016-09-23] MEDS ORDERED: Metoprolol Tartrate IV* 1 MG/ML 5 ML VIAL ONE (22:05)
[2016-09-23] MEDS ORDERED: Atorvastatin* 80 MG TAB PO SCH (22:30)
[2016-09-23] MEDS ORDERED: Amiodarone 150 MG IVPREMIX* 150 MG/100 ML BAG IV ONE ×2 (22:37→22:54)
[2016-09-23] MEDS ORDERED: Morphine INJ* 2 MG/ML 1 ML CARPUJECT IV PRN (22:43)
[2016-09-23] MEDS ORDERED: Acetaminophen TAB* 325 MG ONE (22:54)
[2016-09-23] MEDS: Acetaminophen TAB* 325 MG PO PRN (22:58)
[2016-09-23] MEDS ORDERED: Metoprolol Tartrate TAB* 25 MG PO ONE (23:01)
[2016-09-24] MEDS ORDERED: Metoprolol Tartrate IV* 1 MG/ML 5 ML VIAL IV PRN (01:28)
[2016-09-24] MEDS ORDERED: Digoxin IV* 0.5 MG/2 ML AMP (0.25 MG/ML) IV PRN (01:28)
[2016-09-24] MEDS ORDERED: Metoprolol Tartrate IV* 1 MG/ML 5 ML VIAL IV ONE (02:00)
[2016-09-24] MEDS ORDERED: Potassium Chlor TAB* 20 MEQ TAB.ER PO ONE (02:00)
--- NOTE | 2016-09-24 02:49 | HP ---
ADMISSION HISTORY AND PHYSICAL: DATE OF ADMISSION: 09/23/16 CHIEF COMPLAINT: The patient with severe chest discomfort, EKG suggesting ST segment elevation anterior myocardial infarction. HISTORY OF PRESENT ILLNESS: The patient is a pleasant 61-year-old gentleman who has a prior cardiac history of stenting of his left anterior descending artery back in 2006 with a 3.0 mm x 8 mm long [place] drug-eluting stent in the proximal left anterior descending artery. He said tonight at around 7:30 just when he was leaving the house heading to work, he started developing chest discomfort between the shoulder blades radiating around to the chest area. There was some shortness of breath with this. He stated that the discomfort felt like a burning sensation in the mid chest wrapping around to the right armpit. He was at work. He called the paramedics and an EKG reportedly showed ST segment elevation in V2 and V3 and as such, a STEMI alert was called with the patient still in the field. On arrival to the emergency room, he had hyperacute T waves in the early precordial leads with mild J-point elevation in V1, more prominent in V2 and somewhat in V3. There was mild downsloping ST segment in II and aVF and lead III. In the emergency room, he received the heparin bolus in addition to nitroglycerin and had already received aspirin therapy. He received Brilinta 180 mg in the emergency room. When arrived, he was still having significant discomfort. A repeat EKG still showed peak T waves albeit the ST segments perhaps slightly better. I had a discussion with him over the issue about proceeding directly to cardiac catheterization lab for possible PCI and the risks and benefits were explained. He understood them and wished to proceed. With respect to his prior past medical history, he has a history reportedly of sleep apnea and coronary artery disease and hyperlipidemia. He is status post stent placement as mentioned in 2006. He has also a history of anxiety. He has cervical spondylosis as well. ALLERGIES: 1. TETRACYCLINE producing a rash. 2. BELLADONNA producing overdose-type reaction. REVIEW OF SYSTEMS: Pertinent to proceeding emergently to the cardiovascular lab. He denies any hematochezia, hematemesis, or hematuria. He denies any renal insufficiency or failure. He says he did have some type of a dye reaction when he had a CAT scan done, but he never broke out in a rash at all and he was just somewhat nauseous. PHYSICAL EXAMINATION VITAL SIGNS: When I see him in the emergency room reveals a gentleman in acute distress, blood pressure 135/77 with a pulse of 71, O2 saturation 100% on oxygen , respirations 22. HEENT: Conjunctivae pink. Sclerae clear. Mouth reveals moist mucosa. NECK: Supple. No increased JVP. Carotid has fair upstroke and volume. I could not appreciate definitive murmur or bruit. LUNGS: Clear to A and P with no active rales, rhonchi, or wheezes. HEART: Reveals no visible heaves, no palpable heaves or thrills. Heart sound is somewhat distinct to a large chest size. Normal S1, S2. No significant S3, S4 gallop or systolic or diastolic murmur. ABDOMEN: Soft, nontender. EXTREMITIES: Without edema. Peripheral pulses were intact. Femoral pulse present without bruit. MUSCULOSKELETAL: He moves all extremities appropriately. NEUROLOGIC: The patient is alert, oriented. PSYCHOLOGICAL: The patient appropriately anxious. DIAGNOSTIC STUDIES/LAB DATA: Laboratory results are pending at the time of the patient proceeding to the cardiovascular laboratory. The risks and benefits of cardiac catheterization were explained to him. As mentioned, he has been appropriately medicated pre-procedure and we will proceed to the cardiovascular laboratory and adjust management pending results. CC: FRANCES Davila; Dr. Thi Cadet* [id number]/[facility] #: [id number] MTDD
[2016-09-24] MEDS ORDERED: Amiodarone 360 MG IVPREMIX* 360 MG/200 ML BAG IV SCH (04:00)
[2016-09-24] MEDS: ALPRAZolam TAB* 0.25 MG PO PRN ×2 (04:21→12:01)
[2016-09-24] MEDS: Al Hydrox/Mg Hydrox/Simet LIQ* 30 ML UDC PO PRN ×2 (04:26→17:09)
[2016-09-24] MEDS: Metoprolol Tartrate TAB* 25 MG PO SCH ×3 (04:26→20:27)
[2016-09-24 05:14] LABS: Hematocrit 43 % (42-52); Hemoglobin 14.1 g/dl (14.0-18.0); Mean Corpuscular HGB Conc 32 g/dl (31-36); Mean Corpuscular Hemoglobin 29 pg (27-31); Mean Corpuscular Volume 88 fL (80-94); Mean Platelet Volume 9 um3 (7.4-10.4); Red Blood Count 4.92 10^6/ul (4.0-5.4); Red Cell Distribution Width 14 % (10.5-15); White Blood Count 14.9 10^3/ul (3.5-10.8)
[2016-09-24 05:37] LABS: Albumin 3.8 g/dL (3.2-5.2); BUN/Creatinine Ratio 17.1 (8-20); Calcium 8.6 mg/dL (8.6-10.3); EGFR African American 86.6 (>60); EGFR Non-African American 67.3 (>60); Globulin 3.1 g/dL (2-4); HDL Cholesterol 45.4 mg/dL; Potassium 4.7 mmol/L (3.5-5.0); Total Bilirubin 0.3 mg/dL (0.2-1.0); Total Protein 6.9 g/dL (6.4-8.9)
[2016-09-24 05:42] LABS: Troponin I 13.09 ng/mL (<0.04)
[2016-09-24] MEDS ORDERED: Metoprolol Succinate XL TAB* 25 MG PO SCH (06:00)
[2016-09-24] MEDS ORDERED: Metoprolol Tartrate IV* 1 MG/ML 5 ML VIAL ONE (06:49)
[2016-09-24] MEDS: Enoxaparin(*) 100 MG/ML SYR SUBCUT SCH ×2 (07:52→20:27)
[2016-09-24] MEDS: Aspirin Low Dose CHEW TAB* 81 MG PO SCH (07:53)
[2016-09-24] MEDS: Amiodarone TAB* 200 MG PO SCH ×4 (07:53→20:27)
[2016-09-24] MEDS ORDERED: Clopidogrel TAB* 300 MG PO ONE (08:00)
[2016-09-24] MEDS ORDERED: Ticagrelor* 90 MG TAB PO SCH (08:00)
[2016-09-24] MEDS ORDERED: Omeprazole CAP* 20 MG PO SCH (09:00)
[2016-09-24] MEDS ORDERED: Famotidine TAB* 20 MG PO SCH (09:00)
[2016-09-24] MEDS: CMC:Pantoprazole TAB (NF) 40 MG TAB PO SCH (10:54)
[2016-09-24] MEDS: Acetaminophen TAB* 325 MG PO PRN (12:01)
[2016-09-24 12:32] LABS: Troponin I 13.36 ng/mL (<0.04)
[2016-09-24] MEDS: Atorvastatin* 40 MG TAB PO SCH (15:38)
[2016-09-24 17:05] LABS: Troponin I 18.18 ng/mL (<0.04)
--- NOTE | 2016-09-24 23:40 | CATH ---
CARDIAC CATHETERIZATION AND INTERVENTIONAL REPORT: DATE OF PROCEDURE: 09/23/16 INDICATION FOR THE PROCEDURE: The patient with acute ST segment elevation anterior wall myocardial infarction. PROCEDURE: Coronary arteriography, thrombectomy, and placement of a 3.0 x 12 mm long Synergy drug-eluting stent in the proximal LAD post dilated to 3.3 to 3.4 mm, left heart catheterization, left ventriculography. DESCRIPTION OF PROCEDURE: The patient was interviewed and examined in the emergency room where the risks and benefits were explained. He understood them and wished to proceed. He was brought to the cardiovascular laboratory where a formal time-out was performed. The patient was prepped and draped in a sterile fashion. Right groin area was anesthetized with 1% lidocaine and the right femoral artery was cannulated using an anterior wall approach. A 6.5-[place] Merit Prelude sheath was placed. Coronary arteriography was performed utilizing a 5-[place] FR4 curve right coronary catheter. The left coronary artery was cannulated utilizing a guiding catheter, a 6-[place] VL 3.5 curve guide catheter. The patient had already received heparin bolus in the emergency room and received aspirin and Brilinta loading dose. ACT was checked and found to be subtherapeutic. As such, a bolus of Angiomax was given and an Angiomax drip was started. An 0.014 [place] Star wire was advanced down the left anterior descending artery and a Fetch 2 aspiration catheter was utilized to perform atherectomy. Immediately following this, the patient developed ventricular fibrillation and he was defibrillated back into an atrial fibrillation. Following this, the 3.0 x 12 mm long stent was deployed and post deployment inflations were made utilizing a 3.25 x 8 mm long NC balloon dilated to high pressure to obtain 3.3 to 3.4 mm. Following this, the artery was reassessed and additional images were obtained to analyze the circumflex artery. Following this, a 5-S[place] pigtail catheter was advanced to the ascending aorta with central aortic pressure was recorded. The catheter was then passed across the aortic valve into the left ventricle where left ventricular pressure was recorded. Left ventriculography was performed utilizing 24 cc of contrast at a rate 12 cc per second. The catheter was then pulled back across the aortic valve to recheck gradient. Of note, after the patient was defibrillated and found to be in atrial fibrillation, the patient was loaded with 150 mg of amiodarone and 1 mg/minute drip was started. The total contrast used was 175 cc of Visipaque dye. The radiation exposure included 9.6 minutes of fluoro time. The air kerma radiation was 1578 milligray. The DAPA radiation was 8643 microgray per meter squared. RESULTS: HEMODYNAMIC DATA: Left heart catheterization - ascending aortic pressure recorded at 88/65 with a mean of 75, left ventricular pressure 87 over left ventricular end- diastolic pressure of 20. LEFT VENTRICULOGRAPHY: Performed in the ACUNA projection revealed severe hypokinesis of the apical region with kcye-ry-ywuaardo hypokinesis of the mid to distal anterior wall. Overall ejection fraction estimated at 40%. CORONARY ARTERIOGRAPHY: A. Right coronary artery - revealed a mild 25% to 30% proximal narrowing noted. There was no other significant lesion seen throughout the course of the vessel, which supplied a moderate sized acute marginal branch supplying the distal inferior wall as well as a shorter posterior descending artery thin in nature and 2 posterior left ventricular branches. B. Left coronary artery. 1. Left main - the proximal area of the left main appeared to have in its worst view a 35% narrowing. The distal left main appeared to have a 25% to 30% narrowing. 2. Left anterior descending artery - a critical 95% lesion was seen proximal to the existing stent in the proximal left anterior descending artery. The rest of the left anterior descending artery revealed a mid lesion of 45% to 50% noted. The mid to distal vessel became quite thin in caliber less than 2 mm as was the case of the mid diagonal branch, which was clearly well below 2 mm in diameter. 3. Circumflex artery - a non-dominant vessel supplying a high first bifurcating obtuse marginal branch, which had no significant disease. The second obtuse marginal branch had a proximal to mid segment narrowing of 35% to 40%. The circumflex continued to supply a low lying posterior left ventricular branch. INTERVENTION INTO PROXIMAL LEFT ANTERIOR DESCENDING ARTERY: Successful reduction of critical 95% stenosis with thrombectomy and placement of a 3.0 x 12 mm long Synergy drug-eluting stent post dilated to 3.3 to 3.4 mm with RAMANDEEP-3 flow and no dissection seen and 0% residual stenosis. OVERALL ASSESSMENT: Significant single vessel disease involving the proximal left anterior descending artery with 95% lesion as described. Moderate disease within the left main including in its worst view at 35% narrowing in the proximal portion and a 25% to 30% narrowing in its distal portion. There was a mild disease in the second obtuse marginal branch from proximal right coronary artery as mentioned above. At this point in time, aggressive risk factor management with aggressive cholesterol control in addition to dual antiplatelet therapy and at this point in time, IV amiodarone drip for the atrial fibrillation with hopeful taoism of sinus rhythm once the amiodarone has built up enough in the blood stream. Beta- blockers will be used as well for helping in rate control. cc: Colleen Oneill RN REFRIGERATION PERSON; Dr. Thi Cadet* [id number]/[facility] #: [id number] MTDD
[2016-09-25] MEDS: Metoprolol Tartrate TAB* 25 MG PO SCH ×3 (06:06→20:24)
[2016-09-25] MEDS: Enoxaparin(*) 100 MG/ML SYR SUBCUT SCH (08:50)
[2016-09-25] MEDS: Aspirin Low Dose CHEW TAB* 81 MG PO SCH (08:51)
[2016-09-25] MEDS: Amiodarone TAB* 200 MG PO SCH ×2 (08:51→20:24)
[2016-09-25] MEDS: CMC:Pantoprazole TAB (NF) 40 MG TAB PO SCH (08:53)
[2016-09-25] MEDS ORDERED: Clopidogrel TAB* 75 MG PO SCH (09:00)
--- NOTE | 2016-09-25 10:27 | ECHO ---
Amended Report Patient: SARAH FLORES [facility] Rec#: [id number] : 1955 Date: 09/25/2016 Age: 61y Height: 177.8 cm / 70.0 in Weight: 104.33 kg / 229.9 lbs Sex: M BSA: 2.22 Room#: [facility] Admit Date#: 09/23/2016 Type: Inpatient Referring: José Steele MD Reading: José Steele MD Health And Safety Instructor: Zehra Calzada [facility] Health And Safety Instructor: Jhoana Presley CC: Colleen Oneill NP Transthoracic Echocardiogram Indication: S/P PCI, STEMI BP: 109/62 HR: 76 Rhythm: NSR Findings History: S/P PCI for Anterior Wall STEMI 09/23/2016, CAD with stent 2006, MADY, HLD, HLD, anxiety, former smoker. Technical Comments: The study is technically limited due to the patient's smoking history. Completed at 0855. Left Ventricle: The left ventricular chamber size is normal. Mild concentric left ventricular hypertrophy is observed. Left ventricular systolic function is at the lower limits of normal. The estimated ejection fraction is 50-55%. Visually estimated LVEF is 50%. There is no consistent Doppler evidence of clinically significant diastolic dysfunction. Left Atrium: The left atrial chamber size is normal. Right Ventricle: The right ventricular cavity size is normal. The right ventricular global systolic function is normal. Right Atrium: The right atrial cavity size is normal. Aortic Valve: The aortic valve is trileaflet. There is no evidence of aortic regurgitation. There is no evidence of aortic stenosis. Mitral Valve: The mitral valve leaflets are mildly thickened. There is a trace of mitral regurgitation. There is no evidence of mitral stenosis. Tricuspid Valve: The tricuspid valve leaflets are normal. There is trace tricuspid regurgitation. No pulmonary hypertension is noted. There is no tricuspid stenosis. Pulmonic Valve: The pulmonic valve appears normal. There is a trace pulmonic regurgitation. There is no pulmonic stenosis. Pericardium: There is no pericardial effusion. A pericardial fat pad is visualized. Aorta: There is mild dilatation of the ascending aorta. There is no dilatation of the aortic arch. There is no dilation of the aortic root. Pulmonary Artery: The main pulmonary artery appears normal. Venous: The inferior vena cava appears normal in size. There is a greater than 50% respiratory change in the inferior vena cava dimension. Conclusions Mild concentric left ventricular hypertrophy is observed. Mild concentric left ventricular hypertrophy is observed. Left ventricular systolic function is at the lower limits of normal. The estimated ejection fraction is 50-55%. Visually estimated LVEF is 50%. No significant valvular disease: There is a trace of mitral regurgitation. There is trace tricuspid regurgitation. There is a trace pulmonic regurgitation. Compared to report of study from 12/02/2010 there is no significant change. Measurements Name Value Normal Range RVIDd (AP) 2D 2.6 cm (0.9 - 2.6) RVDdMajor (2D) 3.8 cm (2.2 - 4.4) RAd ISD 4CH 4.9 cm (3.4 - 4.9) RA (A4C)W 4.4 cm (2.9 - 4.6) IVSd (2D) 1.3 cm (0.6 - 1) LVPWd (2D) 1.1 cm (0.6 - 1) LVIDd (2D) 4.6 cm (3.6 - 5.4) LVIDs (2D) 2.8 cm - LV FS (2D) 39 % (25 - 45) Aortic Annulus 1.9 cm (1.4 - 2.6) Ao root diameter (2D) 3 cm (2.1 - 3.5) Ascending Ao 3.6 cm (2.1 - 3.4) Aortic arch 2.8 cm (1.8 - 3.4) LA dimension (AP) 2D 3.7 cm (2.3 - 3.8) LAd ISD 4CH 4.8 cm (2.9 - 5.3) LA ISD 4CH W 3.2 cm (2.5 - 4.5) Name Value Normal Range LA ESV SP 4CH (A/L) 28 ml - LA ESV SP 2CH (A/L) 45 ml - LA ESV BP (A/L) 37 ml - LA ESV BP (A/L) index 16.6 ml/m2 - LA ESV SP 4CH (MOD) 26 ml - LA ESV SP 2CH (MOD) 43 ml - Name Value Normal Range MV E-wave Vmax 0.7 m/sec - MV deceleration time 165 msec - MV A-wave Vmax 0.4 m/sec - MV E:A ratio 1.67 ratio - LV septal e' Vmax 0.1 m/sec - LV lateral e' Vmax 0.11 m/sec - LV E:e' septal ratio 7 ratio - LV E:e' lateral ratio 6.36 ratio - Name Value Normal Range AV Vmax 1.2 m/sec - AV VTI 27 cm - AV peak gradient 6.38 mmHg - AV mean gradient 3.68 mmHg - LVOT Vmax 1.1 m/sec - LVOT VTI 24 cm - LVOT peak gradient 4.72 mmHg - LVOT mean gradient 2.66 mmHg - ANTONY Vmax 0.6 m/sec - Name Value Normal Range TR Vmax 2.5 m/sec - TR peak gradient 25 mmHg - RAP 3 mmHg - RVSP 28 mmHg - IVC diameter 1.2 cm - Name Value Normal Range PV Vmax 0.8 m/sec - PV peak gradient 2.77 mmHg -
[2016-09-25 12:34] LABS: BUN/Creatinine Ratio 17.3 (8-20); Calcium 8.8 mg/dL (8.6-10.3); EGFR African American 87.5 (>60); EGFR Non-African American 68.1 (>60); Potassium 4.2 mmol/L (3.5-5.0)
[2016-09-25 12:40] LABS: Troponin I 10.3 ng/mL (<0.04)
[2016-09-25] MEDS: ALPRAZolam TAB* 0.25 MG PO PRN (14:40)
[2016-09-25] MEDS: Atorvastatin* 40 MG TAB PO SCH (17:45)
[2016-09-26] MEDS ORDERED: Ticagrelor* 90 MG TAB PO ONE (07:00)
[2016-09-26] MEDS: Enoxaparin(*) 40 MG/0.4 ML SYR SUBCUT SCH (09:13)
[2016-09-26] MEDS: Aspirin Low Dose CHEW TAB* 81 MG PO SCH (09:20)
[2016-09-26] MEDS: Amiodarone TAB* 200 MG PO SCH ×3 (09:20→09:24)
[2016-09-26] MEDS: CMC:Pantoprazole TAB (NF) 40 MG TAB PO SCH (09:20)
[2016-09-26] MEDS: Metoprolol Tartrate TAB* 25 MG PO SCH (09:23)
[2016-09-26] MEDS: Metoprolol Succinate XL TAB* 50 MG PO SCH (10:21)
[2016-09-26] MEDS: ALPRAZolam TAB* 0.25 MG PO PRN (10:21)
[2016-09-26] MEDS: Atorvastatin* 40 MG TAB PO SCH (17:25)
[2016-09-26] MEDS: Ticagrelor* 90 MG TAB PO SCH (18:46)
[2016-09-27 06:42] LABS: BUN/Creatinine Ratio 16.7 (8-20); Calcium 9.1 mg/dL (8.6-10.3); EGFR African American 79.2 (>60); EGFR Non-African American 61.6 (>60); Potassium 4.1 mmol/L (3.5-5.0)
[2016-09-27 08:13] VITALS: BP 130/74
[2016-09-27] MEDS: CMC:Pantoprazole TAB (NF) 40 MG TAB PO SCH (08:19)
[2016-09-27] MEDS: Enoxaparin(*) 40 MG/0.4 ML SYR SUBCUT SCH (08:19)
[2016-09-27] MEDS: Metoprolol Succinate XL TAB* 50 MG PO SCH (08:19)
[2016-09-27] MEDS: Aspirin Low Dose CHEW TAB* 81 MG PO SCH (08:20)
[2016-09-27] MEDS: Ticagrelor* 90 MG TAB PO SCH (08:20)
[2016-09-27] MEDS: Amiodarone TAB* 200 MG PO SCH (08:20)
--- NOTE | 2016-09-28 03:01 | DS ---
DISCHARGE SUMMARY: DATE OF ADMISSION: 09/23/16 DATE OF DISCHARGE: 09/27/16 FINAL DIAGNOSES: 1. 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 2. History of stenotic coronary artery disease. 3. History of sleep apnea. 4. Hyperlipidemia. 5. Cervical spondylosis. DISCHARGE MEDICATIONS: Include: 1. Metoprolol succinate 50 mg once a day. 2. Atorvastatin 40 mg once a day. 3. Amiodarone 200 mg once a day. 4. Ticagrelor 90 mg twice a day. 5. Aspirin 81 mg a day. 6. Alprazolam 0.5 mg daily. 7. B complex 1 tablet a day. 8. Famotidine 20 mg a day. HOSPITAL COURSE: The patient is a pleasant 61-year-old gentleman who presented to [facility] in the throes of an acute anterior wall myocardial infarction on 09/23/16. He had a history of prior stent placed in the left anterior descending artery in 2006. He was taken emergently to the cardiovascular laboratory and was found to have a 99% lesion in the proximal LAD just in the beginning portion of the original stent. He underwent thrombectomy and reperfusion developed ventricular fibrillation necessitating defibrillation x3 with shocking back into atrial fibrillation. He had subsequent placement of a 3.0 x 12 mm long Synergy drug-eluting stent post dilated to 3.3 to 3.4 mm. During the hospitalization, he was kept on IV amiodarone and loaded with amiodarone in an attempt to try to restore sinus rhythm. He was initially anticoagulated with subcutaneous Lovenox and he did indeed convert back to sinus rhythm. His amiodarone was decreased to 200 mg a day by the time of discharge. He was eventually up and about and an echocardiogram performed on revealed an estimated of EF 50% with no significant focal wall motion abnormalities. There was trace mitral regurgitation, tricuspid regurgitation, and pulmonic regurgitation. PHYSICAL EXAMINATION: On the day of discharge, he was stable. Vital signs revealed, blood pressure of 130/74, pulse of 70, respirations 16, O2 saturation 96% on room air. Neck was supple. No increased JVP. Lungs were clear with no active rales, rhonchi, or wheezes. Heart revealed no visible heaves, no palpable heaves or thrills, with regular rate and rhythm. No significant systolic or diastolic murmur. Abdomen was soft, nontender, obese. Extremities without clubbing, cyanosis, or reba pitting edema. The right groin area was well healed with no hematoma. Good pulse and good distal pulses. Neuro: The patient alert, oriented with normal mentation. Musculoskeletal: The patient with normal gait. Psychiatric: The patient with normal affect. LABORATORY DATA: Laboratory results during the hospitalization had revealed that he presented with an initial elevated total CPK of 644 (he has a history of an abnormally chronically elevated CPK, etiology never determined). MB was 6.0 and troponin was 0.01. He peaked immediately at 12 and a total CPK of 1209 with an MB of 113.2 and a troponin which eventually peaked at 18. His total cholesterol was 167 with an LDL of 108, triglycerides of 69, HDL of 45. His BUN and creatinine were stable and on the day of discharge, was 20 and 1.2 with a potassium of 4.1, sodium 135. He has a scheduled followup appointment to see Dr. Cadet on 10/06/16 at 12:50 and I have instructed him to call his family nurse practitioner, Colleen Oneill, for followup appointment. He was given a cardiac education booklet in addition to getting a 5-day supply of ticagrelor along with a booklet on ticagrelor and his cards to try to get a 1- month free bottle from his pharmacy. All of his questions were answered to his satisfaction and he was instructed with any other significant problems to either call or to seek immediate medical attention. CC: FRANCES Davila; Dr. Thi Cadet * [id number]/[facility] #: [id number] [facility]
== END 2016-09-27 12:10 | disposition home or self-care (01) | DRG 174 ==
LOC: ED 20:10 → ICU 21:43 → MEDTELE 09-26 03:32
PROVIDERS: ADMIT Internal Medicine Cardiovascular Disease; ATTEND Internal Medicine Cardiovascular Disease
PROC: 02C03ZZ Extirpation of Matter from Coronary Artery, One Artery, Percutaneous Approach (ICD-10-PCS; 2016-09-23)
PROC: 3E03317 Introduction of Other Thrombolytic into Peripheral Vein, Percutaneous Approach (ICD-10-PCS; 2016-09-23)
PROC: 5A2204Z Restoration of Cardiac Rhythm, Single (ICD-10-PCS; 2016-09-23)
PROC: B211YZZ Fluoroscopy of Multiple Coronary Arteries using Other Contrast (ICD-10-PCS; 2016-09-23)
PROC: B215YZZ Fluoroscopy of Left Heart using Other Contrast (ICD-10-PCS; 2016-09-23)
PROC: 4A023N7 Measurement of Cardiac Sampling and Pressure, Left Heart, Percutaneous Approach (ICD-10-PCS; 2016-09-23)
PROC: 027034Z Dilation of Coronary Artery, One Artery with Drug-eluting Intraluminal Device, Percutaneous Approach (ICD-10-PCS; principal; 2016-09-23 20:00)
DX: I21.09 ST elevation (STEMI) myocardial infarction involving other coronary artery of anterior wall (principal); I49.01 Ventricular fibrillation; I08.1 Rheumatic disorders of both mitral and tricuspid valves; G47.30 Sleep apnea, unspecified; I25.10 Atherosclerotic heart disease of native coronary artery without angina pectoris; E78.5 Hyperlipidemia, unspecified; F41.9 Anxiety disorder, unspecified; M47.892 Other spondylosis, cervical region; I37.1 Nonrheumatic pulmonary valve insufficiency; M50.20 Other cervical disc displacement, unspecified cervical region; I48.91 Unspecified atrial fibrillation; Z95.5 Presence of coronary angioplasty implant and graft; Z88.1 Allergy status to other antibiotic agents; Z88.8 Allergy status to other drugs, medicaments and biological substances; Z79.82 Long term (current) use of aspirin; Z79.02 Long term (current) use of antithrombotics/antiplatelets
CPT/HCPCS: 36415; 71010; 80048; 80053; 80061; 82550; 82553; 83605; 84484; 85025; 87641; 93005; 93306; A9270-GY; C1725; C1757; C1760; C1769; C1876; C1887; C9606-LD; J0282; J0583; J1644; J1650; J2060; J2270; J2405; J2930; J3490

== ENCOUNTER 2016-10-03 19:17 | Observation (INO) | payer OTHER ==
[2016-10-03 20:15] LABS: Hematocrit 44 % (42-52); Hemoglobin 14.8 g/dl (14.0-18.0); Mean Corpuscular HGB Conc 34 g/dl (31-36); Mean Corpuscular Hemoglobin 29 pg (27-31); Mean Corpuscular Volume 88 fL (80-94); Mean Platelet Volume 8 um3 (7.4-10.4); Red Blood Count 5.04 10^6/ul (4.0-5.4); Red Cell Distribution Width 13 % (10.5-15); White Blood Count 9.7 10^3/ul (3.5-10.8)
[2016-10-03 20:30] LABS: BUN/Creatinine Ratio 14.6 (8-20); Calcium 8.7 mg/dL (8.6-10.3); EGFR African American 67.9 (>60); EGFR Non-African American 52.8 (>60); Total Bilirubin 0.4 mg/dL (0.2-1.0)
[2016-10-03 20:37] LABS: Troponin I 0.1 ng/mL (<0.04)
[2016-10-03] MEDS ORDERED: Acetaminophen TAB* 325 MG PO PRN (20:44)
[2016-10-03] MEDS ORDERED: NS 0.9% 1000 ML* 1,000 ML IV SCH (20:45)
[2016-10-03] MEDS ORDERED: Melatonin (NF) 3 MG TAB PO PRN (20:45)
[2016-10-03] MEDS ORDERED: ALPRAZolam TAB* 0.25 MG PO PRN (20:47)
--- NOTE | 2016-10-03 20:53 | RAD ---
Indication: Dizziness for one day. Near syncope. Coronary artery disease. Stent placement last week. Comparison: September 23, 2016 Technique: Upright AP 2026 hours Report: Clear lungs and pleural spaces. Negative for pneumothorax. Upper normal heart size. Unremarkable central pulmonary vasculature and mediastinal contours. Unremarkable osseous structures and soft tissue contours. IMPRESSION: No evidence for acute intrathoracic disease.
--- NOTE | 2016-10-03 20:55 | HP ---
H&P (Free Text) History and Physical: PCP: Viktoria Oneill NP Date/Time of Evaluation: 10/03/2016 2110 CC: light-headedness HPI: Mr Restrepo is a 61YO male admitted to [facility] [place] 09/23 - 09/27/2016 for STEMI who received a stent to a 99% proximal LAD lesion at the origin of prior stent placement via Gurpreet Steele MD interventional cardiology. He reports tonight the onset of non-vertiginous light-headedness Wednesday evening. Wednesday AM it was gone, but gradually returned worse than previously throughout the day prompting him to come for evaluation. Otherwise, he states he feels great. No chest pain, SOB, N/V, palpitations, sweating, headache, focal W/N/T, change in speech/ swallow/vision, or other issues. ED provider was concerned for posterior circulation CVA, but patient refused CT brain. Upon my evaluation, he reports the light-headedness was currently still present, but better. Alprazolam earlier in the day helped as did eating. Walking around made it worse. While in the ED, his pulse & BP have been good essentially ruling out his increased metoprolol dose as etiology. He was started on amiodarone which can cause dizziness. Certainly posterior CVA is a potential albeit less likely cause given the absence of any other symptoms. PMedHx CAD s/p stent to 99% proximal LAD 09/23/2016 GERD anxiety Allergies Tetracycline Allergy (Mild, Verified 02/24/16 13:18) Itching Belladonna Allergy (Unknown, Verified 02/24/16 13:18) Unknown Reaction Details Iodinated Diagnostic Agents Allergy (Verified 09/24/16 07:08) Agitation ct dye Allergy (Uncoded 09/22/16 19:37) aggitation Ambulatory Orders Aspirin EC Low Dose* [Ecotrin EC Low Dose 81 MG*] 1 tab PO DAILY 01/05/15 ALPRAZolam TAB* [Xanax TAB*] 0.5 tab PO DAILY PRN 05/31/15 B-Complex Vitamins [Vitamin B Complex] 1 tab PO DAILY 11/12/15 Famotidine [Pepcid] 1 tab PO DAILY 11/12/15 Amiodarone TAB* [Cordarone Tab*] 200 mg PO DAILY #30 tab 09/27/16 Atorvastatin* [Lipitor 40 MG*] 40 mg PO 1700 #30 tab 09/27/16 Metoprolol Succinate XL TAB* [Toprol XL TAB*] 50 mg PO DAILY #30 tab.xl Nitroglycerin TAB 0.4 MG* 0.4 mg SL Q5M PRN #25 tab 09/27/16 Ticagrelor* [Brilinta 90 MG*] 90 mg PO BID #60 tab 09/27/16 PSurgHx cardiac cath SocHx: no tobacco, alcohol, or recreational drugs; lives with his ; works at [employer]; full code status FamHx: positive for DM ROS: as above, otherwise reviewed and all were negative Constitutional: NAD, normally developed, obese white male vitals: Vital Signs Temp 36.9 C 10/03/16 19:19 Pulse 70 10/03/16 19:43 Resp 21 10/03/16 20:00 BP 147/77 10/03/16 20:00 Pulse Ox 98 10/03/16 19:43 Intake & Output 10/02/16 10/03/16 10/03/16 23:59 11:59 23:59 Weight 99.79 kg HEENM: atraumatic; sclera/conjunctiva: non-icteric/clear; hearing: clinically intact; oropharynx: clear, mucosa moist Neck: soft tissue: non-tender; thyroid: normal Pulmonary: clear to auscultation bilaterally, good aeration, no accessory muscle use CV: RR/RR, normal S1S2, no carotid bruit, no jugular venous distention, 2+ B DP/ PT, no edema Abdominal: soft, non-distended, non-tender, no rebound/guarding/rigidity, normoactive bowel sounds, no hepatosplenomegaly or masses, no costovertebral angle tenderness Musculoskeletal: general: grossly intact; gait: Integumental: normal appearance and texture of exposed skin Psychiatric orientation: AA&O to PPS affect: calm mood: cooperative eye contact: good content: reliable responses: timely insight: fair Testing: Lab Results 10/03/16 10/03/16 10/03/16 Range/Units 20:05 20:05 20:05 WBC 9.7 (3.5-10.8) 10^3/ul RBC 5.04 (4.0-5.4) 10^6/ul Hgb 14.8 (14.0-18.0) g/dl Hct 44 (42-52) % MCV 88 (80-94) fL MCH 29 (27-31) pg MCHC 34 (31-36) g/dl RDW 13 (10.5-15) % Plt Count 270 (150-450) 10^3/ul MPV 8 (7.4-10.4) um3 Neut % (Auto) 67.8 (38-83) % Lymph % (Auto) 22.7 L (25-47) % White % (Auto) 7.2 (1-9) % Eos % (Auto) 1.5 (0-6) % Baso % (Auto) 0.8 (0-2) % Absolute Neuts (auto) 6.5 (1.5-7.7) 10^3/ul Absolute Lymphs (auto) 2.2 (1.0-4.8) 10^3/ul Absolute Monos (auto) 0.7 (0-0.8) 10^3/ul Absolute Eos (auto) 0.1 (0-0.6) 10^3/ul Absolute Basos (auto) 0.1 (0-0.2) 10^3/ul Absolute Nucleated RBC 0 10^3/ul Nucleated RBC % 0 INR (Anticoag Therapy) (0.89-1.11) APTT (26.0-36.3) seconds Sodium 136 (133-145) mmol/L Potassium 4.0 (3.5-5.0) mmol/L Chloride 104 (101-111) mmol/L Carbon Dioxide 26 (22-32) mmol/L Anion Gap 6 (2-11) mmol/L BUN 20 (6-24) mg/dL Creatinine 1.37 H (0.67-1.17) mg/dL Est GFR ( Amer) 67.9 (>60) Est GFR (Non-Af Amer) 52.8 (>60) BUN/Creatinine Ratio 14.6 (8-20) Glucose 96 (70-100) mg/dL Lactic Acid 0.6 (0.5-2.0) mmol/L Calcium 8.7 (8.6-10.3) mg/dL Magnesium 2.0 (1.9-2.7) mg/dL Total Bilirubin 0.40 (0.2-1.0) mg/dL AST 24 (13-39) U/L ALT 22 (7-52) U/L Alkaline Phosphatase 85 (34-104) U/L Troponin I 0.10 H* (<0.04) ng/mL B-Natriuretic Peptide ( - 100) pg/mL Total Protein 7.0 (6.4-8.9) g/dL Albumin 4.0 (3.2-5.2) g/dL Globulin 3.0 (2-4) g/dL Albumin/Globulin Ratio 1.3 (1-3) 10/03/16 10/03/16 Range/Units 20:05 20:05 WBC (3.5-10.8) 10^3/ul RBC (4.0-5.4) 10^6/ul Hgb (14.0-18.0) g/dl Hct (42-52) % MCV (80-94) fL MCH (27-31) pg MCHC (31-36) g/dl RDW (10.5-15) % Plt Count (150-450) 10^3/ul MPV (7.4-10.4) um3 Neut % (Auto) (38-83) % Lymph % (Auto) (25-47) % White % (Auto) (1-9) % Eos % (Auto) (0-6) % Baso % (Auto) (0-2) % Absolute Neuts (auto) (1.5-7.7) 10^3/ul Absolute Lymphs (auto) (1.0-4.8) 10^3/ul Absolute Monos (auto) (0-0.8) 10^3/ul Absolute Eos (auto) (0-0.6) 10^3/ul Absolute Basos (auto) (0-0.2) 10^3/ul Absolute Nucleated RBC 10^3/ul Nucleated RBC % INR (Anticoag Therapy) 1.01 (0.89-1.11) APTT 29.5 (26.0-36.3) seconds Sodium (133-145) mmol/L Potassium (3.5-5.0) mmol/L Chloride (101-111) mmol/L Carbon Dioxide (22-32) mmol/L Anion Gap (2-11) mmol/L BUN (6-24) mg/dL Creatinine (0.67-1.17) mg/dL Est GFR ( Amer) (>60) Est GFR (Non-Af Amer) (>60) BUN/Creatinine Ratio (8-20) Glucose (70-100) mg/dL Lactic Acid (0.5-2.0) mmol/L Calcium (8.6-10.3) mg/dL Magnesium (1.9-2.7) mg/dL Total Bilirubin (0.2-1.0) mg/dL AST (13-39) U/L ALT (7-52) U/L Alkaline Phosphatase (34-104) U/L Troponin I (<0.04) ng/mL B-Natriuretic Peptide 178 H ( - 100) pg/mL Total Protein (6.4-8.9) g/dL Albumin (3.2-5.2) g/dL Globulin (2-4) g/dL Albumin/Globulin Ratio (1-3) ECG, personally reviewed: NSR rate 68, old T-wave inversion in III and old T- wave flattening in AVF; no ST or J-point elevation CXR, personally reviewed: IMPRESSION: No evidence for acute intrathoracic disease. Impression: 61M presenting with light-headedness ? etiology, refusing radiologic evaluation for posterior CVA DIAGNOSIS & PLAN Primary light-headedness : symptoms present without bradycardia or hypotension, doubt increased metoprolol dose from recent STEMI as cause : newly placed on amiodarone, likely candidate : anxiety is a potential etiology as well' : neurochecks : supportive care elevated troponin : almost certainly residual from recent STEMI : trend : telemetry : supplemental oxygen Secondary CAD : s/p stent to 99% proximal LAD 09/23/2016 via Gurpreet Steele MD : continue aspirin, ticagrelor, amiodarone, metoprolol, & atorvastatin GERD : continue famotidine anxiety : increase alprazolam to 0.5mg PO TID PRN Admission Rational: CDU observation for light-headedness s/p recent STEMI DVTp: heparin SQ & SCDs Code Status: full HCP:
--- NOTE | 2016-10-03 21:28 | ED ---
Iliana Ness Matthew, scribed for Gerson Preciado on 10/03/16 at 2014 . Dizziness - HPI Summary HPI Summary: A 61 y/o male presents to the ED with lightheadedness for the past 2 days. The patient has had baseline lightheadedness throughout the day today, but had an episode of more severe lightheadedness, which last for approximately an hour while he was driving today. He describes the feeling like having low blood sugar and ate sugar with mild relief. His lightheadedness is unaffected by movement of his head and is worse with ambulation. The patient denies chest pain , SOB, cough, and fever. He had a recent NH and stent placed on 09/23/16. At that time, he was started on multiple new medications. He takes brilinta and aspirin daily. He's also c/o of acid reflux, which worsened after he ate the sugar today. - History Of Current Complaint Chief Complaint: EDDizziness Stated Complaint: LIGHTHEADED,NEAR SYNCOPE Time Seen by Provider: 10/03/16 19:46 Hx Obtained From: Patient Onset/Duration: Still Present Timing: Constant Severity Initially: Moderate Severity Currently: Mild Character: Lightheaded Aggravating Factor(s): Other - ambulation Alleviating Factor(s): Glucose - mild relief Associated Signs And Symptoms: Negative: Chest Pain, SOB, Fever - Allergies/Home Medications Allergies/Adverse Reactions: Allergies Allergy/AdvReac Type Severity Reaction Status Date / Time Tetracycline Allergy Mild Itching Verified 02/24/16 13:18 Belladonna Allergy Unknown Unknown Verified 02/24/16 13:18 Reaction Details Iodinated Diagnostic Agents Allergy Agitation Verified 09/24/16 07:08 ct dye Allergy aggitation Uncoded 09/22/16 19:37 PMH/Surg Hx/FS Hx/Imm Hx Endocrine/Hematology History: Denies: Hx Diabetes Cardiovascular History: 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, midsternal, upper ribs Denies: Hx Congestive Heart Failure, Hx Coronary Artery Disease, Hx Hypercholesterolemia, Hx Hypertension, Hx Myocardial Infarction, Hx Pacemaker/ ICD, Hx Valvular Heart Disease Respiratory History: Denies: Hx Asthma, Hx Chronic Obstructive Pulmonary Disease (COPD) History: Denies: Hx Dialysis, Hx Renal Disease Musculoskeletal History: Reports: Other Musculoskeletal History - Herniated discs in the C-spine Sensory History: Reports: Hx Contacts or Glasses Denies: Hx Hearing Aid Opthamlomology History: Reports: Hx Contacts or Glasses Psychiatric History: Denies: Hx Panic Disorder - Surgical History Surgery Procedure, Year, and Place: cardiac stent 2006 TAXIS EXPRESS CLEARED FOR 1.5 OR 3T SGF 700G/CM PER [employer] IN NORMAL OPERATING SCAN MODE Infectious Disease History: No Infectious Disease History: Denies: Traveled Outside the [place] in Last 30 Days - Family History Known Family History: Negative: Cardiac Disease, Hypertension - Social History Alcohol Use: None Substance Use Type: Reports: None Smoking Status (MU): Never Smoked Tobacco Review of Systems Constitutional: Negative Negative: Fever Eyes: Negative ENT: Negative Cardiovascular: Negative Negative: Chest Pain Respiratory: Negative Negative: Shortness Of Breath, Cough Gastrointestinal: Other - acid reflux Genitourinary: Negative Musculoskeletal: Negative Skin: Negative Neurological: Other - Lightheadedness Psychological: Normal All Other Systems Reviewed And Are Negative: Yes Physical Exam Triage Information Reviewed: Yes Vital Signs On Initial Exam: Initial Vitals Temp Pulse Resp BP Pulse Ox 98.5 F 78 18 155/85 98 10/03/16 19:19 10/03/16 19:19 10/03/16 19:19 10/03/16 19:19 10/03/16 19:19 Vital Signs Reviewed: Yes Appearance: Positive: Well-Appearing, No Pain Distress Skin: Positive: Warm, Skin Color Reflects Adequate Perfusion, Dry Head/Face: Positive: Normal Head/Face Inspection Eyes: Positive: EOMI, LESIA ENT: Positive: Normal ENT inspection Neck: Positive: Supple, Nontender Respiratory/Lung Sounds: Positive: Clear to Auscultation, Breath Sounds Present Cardiovascular: Positive: RRR, Pulses are Symmetrical in both Upper and Lower Extremities Abdomen Description: Positive: Nontender, Soft Bowel Sounds: Positive: Present Musculoskeletal: Positive: Normal, Strength/ROM Intact Neurological: Positive: Normal, Sensory/Motor Intact, Alert, Oriented to Person Place, Time Psychiatric: Positive: Affect/Mood Appropriate Diagnostics - Vital Signs Vital Signs Temp Pulse Resp BP Pulse Ox 10/03/16 19:19 98.5 F 78 18 155/85 98 - Laboratory Lab Results: Lab Results 10/03/16 10/03/16 10/03/16 Range/Units 20:05 20:05 20:05 WBC 9.7 (3.5-10.8) 10^3/ul RBC 5.04 (4.0-5.4) 10^6/ul Hgb 14.8 (14.0-18.0) g/dl Hct 44 (42-52) % MCV 88 (80-94) fL MCH 29 (27-31) pg MCHC 34 (31-36) g/dl RDW 13 (10.5-15) % Plt Count 270 (150-450) 10^3/ul MPV 8 (7.4-10.4) um3 Neut % (Auto) 67.8 (38-83) % Lymph % (Auto) 22.7 L (25-47) % [place] % (Auto) 7.2 (1-9) % Eos % (Auto) 1.5 (0-6) % Baso % (Auto) 0.8 (0-2) % Absolute Neuts (auto) 6.5 (1.5-7.7) 10^3/ul Absolute Lymphs (auto) 2.2 (1.0-4.8) 10^3/ul Absolute Monos (auto) 0.7 (0-0.8) 10^3/ul Absolute Eos (auto) 0.1 (0-0.6) 10^3/ul Absolute Basos (auto) 0.1 (0-0.2) 10^3/ul Absolute Nucleated RBC 0 10^3/ul Nucleated RBC % 0 INR (Anticoag Therapy) (0.89-1.11) APTT (26.0-36.3) seconds Sodium 136 (133-145) mmol/L Potassium 4.0 (3.5-5.0) mmol/L Chloride 104 (101-111) mmol/L Carbon Dioxide 26 (22-32) mmol/L Anion Gap 6 (2-11) mmol/L BUN 20 (6-24) mg/dL Creatinine 1.37 H (0.67-1.17) mg/dL Est GFR ( Amer) 67.9 (>60) Est GFR (Non-Af Amer) 52.8 (>60) BUN/Creatinine Ratio 14.6 (8-20) Glucose 96 (70-100) mg/dL Lactic Acid 0.6 (0.5-2.0) mmol/L Calcium 8.7 (8.6-10.3) mg/dL Magnesium 2.0 (1.9-2.7) mg/dL Total Bilirubin 0.40 (0.2-1.0) mg/dL AST 24 (13-39) U/L ALT 22 (7-52) U/L Alkaline Phosphatase 85 (34-104) U/L Troponin I 0.10 H* (<0.04) ng/mL B-Natriuretic Peptide ( - 100) pg/mL Total Protein 7.0 (6.4-8.9) g/dL Albumin 4.0 (3.2-5.2) g/dL Globulin 3.0 (2-4) g/dL Albumin/Globulin Ratio 1.3 (1-3) 10/03/16 10/03/16 Range/Units 20:05 20:05 WBC (3.5-10.8) 10^3/ul RBC (4.0-5.4) 10^6/ul Hgb (14.0-18.0) g/dl Hct (42-52) % MCV (80-94) fL MCH (27-31) pg MCHC (31-36) g/dl RDW (10.5-15) % Plt Count (150-450) 10^3/ul MPV (7.4-10.4) um3 Neut % (Auto) (38-83) % Lymph % (Auto) (25-47) % [place] % (Auto) (1-9) % Eos % (Auto) (0-6) % Baso % (Auto) (0-2) % Absolute Neuts (auto) (1.5-7.7) 10^3/ul Absolute Lymphs (auto) (1.0-4.8) 10^3/ul Absolute Monos (auto) (0-0.8) 10^3/ul Absolute Eos (auto) (0-0.6) 10^3/ul Absolute Basos (auto) (0-0.2) 10^3/ul Absolute Nucleated RBC 10^3/ul Nucleated RBC % INR (Anticoag Therapy) 1.01 (0.89-1.11) APTT 29.5 (26.0-36.3) seconds Sodium (133-145) mmol/L Potassium (3.5-5.0) mmol/L Chloride (101-111) mmol/L Carbon Dioxide (22-32) mmol/L Anion Gap (2-11) mmol/L BUN (6-24) mg/dL Creatinine (0.67-1.17) mg/dL Est GFR ( Amer) (>60) Est GFR (Non-Af Amer) (>60) BUN/Creatinine Ratio (8-20) Glucose (70-100) mg/dL Lactic Acid (0.5-2.0) mmol/L Calcium (8.6-10.3) mg/dL Magnesium (1.9-2.7) mg/dL Total Bilirubin (0.2-1.0) mg/dL AST (13-39) U/L ALT (7-52) U/L Alkaline Phosphatase (34-104) U/L Troponin I (<0.04) ng/mL B-Natriuretic Peptide 178 H ( - 100) pg/mL Total Protein (6.4-8.9) g/dL Albumin (3.2-5.2) g/dL Globulin (2-4) g/dL Albumin/Globulin Ratio (1-3) Result Diagrams: 10/03/16 20:05 10/03/16 20:05 Lab Statement: Any lab studies that have been ordered have been reviewed, and results considered in the medical decision making process. - Radiology CXR Xray Interpretation: No Acute Changes - IMPRESSION: No evidence for acute intrathoracic disease. Radiology Interpretation Completed By: Radiologist - EKG 20:13 Cardiac Rate: NL - 68 bpm EKG Rhythm: Sinus Rhythm EKG Interpretation: Q Waves in the inferior leads Dizzy Course/Dx - Course Assessment/Plan: A 61 y/o male presents to the ED with lightheadedness for the past 2 days. Labs were reviewed. Troponin was 0.10. The patient had an NH and stent placement on 09/23/16. CXR shows no acute intrathoracic disease. EKG shows sinus rhythm at 68 bpm with Q waves in the inferior leads. Discussed the case with Dr. Osullivan who will admit the patient into his services. - Diagnoses Provider Diagnoses: Dizziness, ACS (acute coronary syndrome) - Provider Notifications Discussed Care Of Patient with: Dr. Osullivan (Hospitalist) at 20:57 -- Notified of patient's history and will admit the patient into his services. Discharge - Discharge Plan Condition: Stable Disposition: ADMITTED TO [facility] The documentation as recorded by the Iliana marroquin Matthew accurately reflects the service I personally performed and the decisions made by , Gerson Preciado.
[2016-10-03] MEDS ORDERED: ALPRAZolam TAB* 0.5 MG PO PRN (22:44)
[2016-10-04] MEDS: Docusate CAP* 100 MG PO SCH ×2 (00:34→09:03)
[2016-10-04] MEDS: Ticagrelor* 90 MG TAB PO SCH ×2 (00:34→09:03)
[2016-10-04] MEDS ORDERED: Heparin VIAL(*) 5000 UNITS/ML VIAL (FIVE THOUSAND) SUBCUT SCH (06:00)
[2016-10-04] MEDS ORDERED: Omeprazole CAP* 20 MG PO SCH (06:00)
[2016-10-04 07:28] LABS: BUN/Creatinine Ratio 12.5 (8-20); Calcium 8.6 mg/dL (8.6-10.3); EGFR African American 73.5 (>60); EGFR Non-African American 57.1 (>60); Potassium 3.6 mmol/L (3.5-5.0)
[2016-10-04] MEDS ORDERED: Famotidine TAB* 20 MG PO SCH (07:30)
[2016-10-04 08:22] LABS: Troponin I 0.07 ng/mL (<0.04)
[2016-10-04] MEDS ORDERED: Amiodarone TAB* 200 MG PO SCH (09:00)
[2016-10-04] MEDS ORDERED: Aspirin EC Low Dose* 81 MG TAB.EC PO SCH (09:00)
[2016-10-04] MEDS ORDERED: Metoprolol Succinate XL TAB* 50 MG PO SCH (09:00)
[2016-10-04 12:49] VITALS: BP 119/68
[2016-10-04] MEDS ORDERED: Atorvastatin* 40 MG TAB PO SCH (17:00)
--- NOTE | 2016-10-05 01:16 | DS ---
DISCHARGE SUMMARY: DATE OF ADMISSION: 10/03/16 DATE OF DISCHARGE: 10/04/16 ADMISSION DIAGNOSES: 1. Lightheadedness. 2. Elevated troponin. 3. Coronary artery disease. 4. Gastroesophageal reflux disease. 5. Anxiety. DISCHARGE DIAGNOSES: 1. Lightheadedness. 2. Elevated troponin. 3. Coronary artery disease. 4. Gastroesophageal reflux disease. 5. Anxiety. HOSPITAL COURSE: The patient is a 61-year-old gentleman who received a stent to his LAD lesion approximately 1 week ago after a STEMI. The patient was doing well at home, but developed lightheadedness on Wednesday evening. Please see H and P for further details. The patient became a concern and was admitted overnight for evaluation. The patient's symptoms completely resolved by the next day. He said he does get anxious as this has happened before and thinks it is related to that, but did not want to take a chance, which seemed quite reasonable. There were no untoward events overnight and he had no arrhythmias. He was feeling well and anxious to go home the next day. We decided that he could go home, but if it happened again, a more comprehensive workup should be initiated and he agreed to this. He is also following up with his teasel setter this week, who will go over the medications as well. His elevated troponin was actually coming down from his prior STEMI, so I was a little concerned that this was actually a result of a cardiac issue. PHYSICAL EXAMINATION: On the date of discharge, temperature 99.2 degrees, heart rate 70 beats per minute, respiratory rate 16 breaths per minute, pulse ox 96%, blood pressure 119/68. HEENT: Normocephalic, atraumatic. Pupils equal , round and reactive to light. Moist mucous membranes. Neck: Supple. No JVD, bruits, palpable thyroid, or lymphadenopathy. Chest: Clear to auscultation and percussion bilaterally. Cardiovascular Exam: S1, S2 appreciated. Abdomen : Positive bowel sounds in all 4 quadrants. Soft, nontender, nondistended. Extremities: No cyanosis, clubbing or edema. Neuro: Alert and oriented x3. Moves all extremities. Skin: No distinct rashes or abnormalities. STUDIES DONE WHILE IN THE HOSPITAL: Chest x-ray, 10/03/16. Impression: No evidence for acute intrathoracic disease. DISCHARGE MEDICATIONS: 1. Nitroglycerin 0.4 mg every 5 minutes as needed for chest pain. 2. Metoprolol succinate 50 mg daily. 3. Famotidine 1 tablet daily. 4. Vitamin B complex vitamins 1 tablet daily. 5. Atorvastatin 40 mg daily. 6. Aspirin 81 mg daily. 7. Amiodarone 200 mg daily. 8. Brilinta 90 mg twice daily. 9. Alprazolam 0.5 mg daily as needed. DISCHARGE PLAN: The patient will be discharged home. He will follow up with his primary care doctor and teasel setter within the week. The patient should return to the ED if he has anymore worrisome symptoms. TIME SPENT: Over 40 minutes was spent on this discharge, more than 25 minutes was spent in direct [id number] contact with the patient in evaluation, physical exam, and counseling and coordination of care. CC: Dr. José Setele; Colleen Oneill, FRANCES * [id number]/[facility] #: [id number] MTDD
== END 2016-10-04 13:00 | disposition home or self-care (01) ==
LOC: ED 19:17 → MEDTELE 20:41
PROVIDERS: ADMIT Hospitalist; ATTEND Internal Medicine
DX: R42 Dizziness and giddiness (principal); R74.8 Abnormal levels of other serum enzymes; I25.10 Atherosclerotic heart disease of native coronary artery without angina pectoris; K21.9 Gastro-esophageal reflux disease without esophagitis; F41.9 Anxiety disorder, unspecified; Z88.1 Allergy status to other antibiotic agents; Z91.041 Radiographic dye allergy status; I25.2 Old myocardial infarction; Z95.5 Presence of coronary angioplasty implant and graft; Z79.899 Other long term (current) drug therapy
CPT/HCPCS: 36415; 71010; 80048; 80053; 83605; 83735; 83880; 84484; 85025; 85610; 85730; 93005; 96360; 96361; 96372; 99284; A9270-GY; G0378; J1644

== ENCOUNTER 2016-11-12 09:55 | Emergency (ER) | payer OTHER ==
[2016-11-12 11:16] LABS: Hematocrit 47 % (42-52); Hemoglobin 15.6 g/dl (14.0-18.0); Mean Corpuscular HGB Conc 34 g/dl (31-36); Mean Corpuscular Hemoglobin 30 pg (27-31); Mean Corpuscular Volume 88 fL (80-94); Mean Platelet Volume 9 um3 (7.4-10.4); Red Blood Count 5.26 10^6/ul (4.0-5.4); Red Cell Distribution Width 14 % (10.5-15); White Blood Count 7.3 10^3/ul (3.5-10.8)
[2016-11-12 11:49] LABS: Urine Bacteria Absent (Absent); Urine Bilirubin Negative (Negative); Urine Glucose Negative (Negative); Urine Nitrite Negative (Negative); Urine Sperm Present (Absent)
[2016-11-12 11:51] LABS: Troponin I 0.01 ng/mL (<0.04)
[2016-11-12 11:55] LABS: TSH (Thyroid Stimulating Horm) 3.02 mcIU/mL (0.34-5.60)
[2016-11-12 12:28] LABS: Albumin 4.5 g/dL (3.2-5.2); BUN/Creatinine Ratio 14.5 (8-20); Calcium 9.4 mg/dL (8.6-10.3); EGFR African American 76.2 (>60); EGFR Non-African American 59.3 (>60); Globulin 2.9 g/dL (2-4); Potassium 4.2 mmol/L (3.5-5.0); Total Bilirubin 0.9 mg/dL (0.2-1.0); Total Protein 7.4 g/dL (6.4-8.9)
--- NOTE | 2016-11-12 15:38 | ED ---
Yovanny Ness Billy, scribed for Champ Melendez MD on 11/12/16 at 1042 . Dizziness - HPI Summary HPI Summary: Patient is a 61 year-old male coming to [facility] for evaluation of intermittent numbness and tingling to the right side of his neck and face. He states that these symptoms have been ongoing for the last several days. At this time in the ED, he reports that his "face feels tight." He also reports feelings of lightheadedness, dizziness, and near-syncopal sensation. He has a significant cardiac history but has no chest pain or SOB at this time. - History Of Current Complaint Chief Complaint: EDDizziness Stated Complaint: DIZZY Time Seen by Provider: 11/12/16 10:31 Hx Obtained From: Patient Onset/Duration: Still Present Timing: Intermittent Episode Lasting Severity Initially: Moderate Severity Currently: Moderate Character: Lightheaded, Dizzy Associated Signs And Symptoms: Positive: Other: - numbness/tingling in the face and neck - Allergies/Home Medications Allergies/Adverse Reactions: Allergies Allergy/AdvReac Type Severity Reaction Status Date / Time Tetracycline Allergy Mild Itching Verified 02/24/16 13:18 [place] Allergy Unknown Unknown Verified 02/24/16 13:18 Reaction Details Iodinated Diagnostic Agents Allergy Agitation Verified 09/24/16 07:08 ct dye Allergy aggitation Uncoded 09/22/16 19:37 Home Medications: Home Medications ALPRAZolam TAB* [Xanax TAB*] 0.5 mg PO DAILY PRN 11/12/16 [History Confirmed ] Famotidine TAB* [Pepcid 20 MG TAB*] 20 mg PO DAILY 11/12/16 [History Confirmed 11/12/16] Potassium Chlor TAB* [Klor Con ER TAB*] 10 meq PO DAILY 11/12/16 [History Confirmed 11/12/16] PMH/Surg Hx/FS Hx/Imm Hx Endocrine/Hematology History: Denies: Hx Diabetes Cardiovascular History: 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, midsternal, upper ribs, Hx Coronary Artery Disease Denies: Hx Congestive Heart Failure, Hx Hypercholesterolemia, Hx Hypertension , Hx Myocardial Infarction, Hx Pacemaker/ICD, Hx Valvular Heart Disease Respiratory History: Denies: Hx Asthma, Hx Chronic Obstructive Pulmonary Disease (COPD) GI History: Reports: Hx Gastroesophageal Reflux Disease History: Denies: Hx Dialysis, Hx Renal Disease Musculoskeletal History: Reports: Other Musculoskeletal History - Herniated discs in the C-spine Sensory History: Reports: Hx Contacts or Glasses Denies: Hx Hearing Aid Opthamlomology History: Reports: Hx Contacts or Glasses Psychiatric History: Denies: Hx Panic Disorder - Surgical History Surgery Procedure, Year, and Place: cardiac stent 2006 TAXIS EXPRESS CLEARED FOR 1.5 OR 3T SGF 700G/CM PER tracx IN NORMAL OPERATING SCAN MODE Infectious Disease History: Denies: Traveled Outside the [place] in Last 30 Days - Family History Known Family History: Positive: Blood Disorder Negative: Cardiac Disease, Hypertension - Social History Alcohol Use: None Substance Use Type: Reports: None Smoking Status (MU): Never Smoked Tobacco Review of Systems Negative: Fever Negative: Chest Pain Negative: Shortness Of Breath Neurological: Other - lightheaded, dizzy Positive: Paresthesia, Numbness All Other Systems Reviewed And Are Negative: Yes Physical Exam Triage Information Reviewed: Yes Vital Signs On Initial Exam: Initial Vitals Temp Pulse Resp BP Pulse Ox 98.3 F 79 20 163/86 99 11/12/16 10:01 11/12/16 10:01 11/12/16 10:01 11/12/16 10:01 11/12/16 10:01 Vital Signs Reviewed: Yes Appearance: Positive: Well-Appearing Skin: Positive: Warm Head/Face: Positive: Normal Head/Face Inspection ENT: Positive: Normal ENT inspection Neck: Positive: Supple, Nontender Respiratory/Lung Sounds: Positive: Clear to Auscultation, Breath Sounds Present Cardiovascular: Positive: Normal, RRR. Negative: Murmur Abdomen Description: Positive: Nontender Musculoskeletal: Positive: Normal, Strength/ROM Intact Neurological: Positive: Normal, Sensory/Motor Intact, Alert, Oriented to Person Place, Time, CN Intact II-III, Other - subjectively has some numbness over right side of face. Psychiatric: Positive: Normal Diagnostics - Vital Signs Vital Signs Temp Pulse Resp BP Pulse Ox 11/12/16 10:07 98.3 F 77 20 163/86 99 11/12/16 10:01 98.3 F 79 20 163/86 99 - Laboratory Lab Results: Lab Results 11/12/16 11/12/16 11/12/16 Range/Units 10:37 10:37 10:37 WBC 7.3 (3.5-10.8) 10^3/ul RBC 5.26 (4.0-5.4) 10^6/ul Hgb 15.6 (14.0-18.0) g/dl Hct 47 (42-52) % MCV 88 (80-94) fL MCH 30 (27-31) pg MCHC 34 (31-36) g/dl RDW 14 (10.5-15) % Plt Count 214 (150-450) 10^3/ul MPV 9 (7.4-10.4) um3 Neut % (Auto) 74.3 (38-83) % Lymph % (Auto) 17.0 L (25-47) % [place] % (Auto) 6.7 (1-9) % Eos % (Auto) 1.2 (0-6) % Baso % (Auto) 0.8 (0-2) % Absolute Neuts (auto) 5.4 (1.5-7.7) 10^3/ul Absolute Lymphs (auto) 1.2 (1.0-4.8) 10^3/ul Absolute Monos (auto) 0.5 (0-0.8) 10^3/ul Absolute Eos (auto) 0.1 (0-0.6) 10^3/ul Absolute Basos (auto) 0.1 (0-0.2) 10^3/ul Absolute Nucleated RBC 0 10^3/ul Nucleated RBC % 0 INR (Anticoag Therapy) 0.98 (0.89-1.11) APTT 29.3 (26.0-36.3) seconds Sodium Pending Potassium Pending Chloride Pending Carbon Dioxide Pending Anion Gap Pending BUN Pending Creatinine Pending Est GFR ( Amer) Pending Est GFR (Non-Af Amer) Pending BUN/Creatinine Ratio Pending Glucose Pending Lactic Acid (0.5-2.0) mmol/L Calcium Pending Magnesium Pending Total Bilirubin Pending AST Pending ALT Pending Alkaline Phosphatase Pending Troponin I 0.01 (<0.04) ng/mL B-Natriuretic Peptide ( - 100) pg/mL Total Protein Pending Albumin Pending Globulin Pending Albumin/Globulin Ratio Pending TSH 3.02 (0.34-5.60) mcIU/mL Urine Color Urine Appearance Urine pH (5-9) Ur Specific [place] (1.010-1.030) Urine Protein (Negative) Urine Ketones (Negative) Urine Blood (Negative) Urine Nitrate (Negative) Urine Bilirubin (Negative) Urine Urobilinogen (Negative) Ur Leukocyte Esterase (Negative) Urine WBC (Auto) (Absent) Urine RBC (Auto) (Absent) Urine Bacteria (Absent) Urine Sperm (Absent) Urine Glucose (Negative) 11/12/16 11/12/16 11/12/16 Range/Units 10:37 10:37 11:29 WBC (3.5-10.8) 10^3/ul RBC (4.0-5.4) 10^6/ul Hgb (14.0-18.0) g/dl Hct (42-52) % MCV (80-94) fL MCH (27-31) pg MCHC (31-36) g/dl RDW (10.5-15) % Plt Count (150-450) 10^3/ul MPV (7.4-10.4) um3 Neut % (Auto) (38-83) % Lymph % (Auto) (25-47) % [place] % (Auto) (1-9) % Eos % (Auto) (0-6) % Baso % (Auto) (0-2) % Absolute Neuts (auto) (1.5-7.7) 10^3/ul Absolute Lymphs (auto) (1.0-4.8) 10^3/ul Absolute Monos (auto) (0-0.8) 10^3/ul Absolute Eos (auto) (0-0.6) 10^3/ul Absolute Basos (auto) (0-0.2) 10^3/ul Absolute Nucleated RBC 10^3/ul Nucleated RBC % INR (Anticoag Therapy) (0.89-1.11) APTT (26.0-36.3) seconds Sodium Potassium Chloride Carbon Dioxide Anion Gap BUN Creatinine Est GFR ( Amer) Est GFR (Non-Af Amer) BUN/Creatinine Ratio Glucose Lactic Acid 1.0 (0.5-2.0) mmol/L Calcium Magnesium Total Bilirubin AST ALT Alkaline Phosphatase Troponin I (<0.04) ng/mL B-Natriuretic Peptide 33 ( - 100) pg/mL Total Protein Albumin Globulin Albumin/Globulin Ratio TSH (0.34-5.60) mcIU/mL Urine Color Yellow Urine Appearance Clear Urine pH 7.0 (5-9) Ur Specific [place] 1.009 L (1.010-1.030) Urine Protein Negative (Negative) Urine Ketones Negative (Negative) Urine Blood Negative (Negative) Urine Nitrate Negative (Negative) Urine Bilirubin Negative (Negative) Urine Urobilinogen Negative (Negative) Ur Leukocyte Esterase Negative (Negative) Urine WBC (Auto) Absent (Absent) Urine RBC (Auto) Trace(0-2/hpf) (Absent) Urine Bacteria Absent (Absent) Urine Sperm Present H (Absent) Urine Glucose Negative (Negative) Result Diagrams: 11/12/16 10:37 11/12/16 10:37 Lab Statement: Any lab studies that have been ordered have been reviewed, and results considered in the medical decision making process. Dizzy Course/Dx - Course Course Of Treatment: 61 yr old male with dizziness, feels like will pass out, numbness to right face, and to lower legs. He is being seen by Neurology, and by medicine for admission. MRI ordered as requested by Dr Coughlin, neurology. He is status post cardiac stents and arrest early September of this year. - Diagnoses Provider Diagnoses: Dizziness, Right facial numbness - Provider Notifications Discussed Care Of Patient with: Dr. Coughlin (neurology) at 1041: will consult for patient in the ED. Dr Eric at 1500. Discharge - Discharge Plan Condition: Good Disposition: ADMITTED TO [facility] documentation as recorded by the Yovanny marroquin Billy accurately reflects the service I personally performed and the decisions made by wa, Champ Melendez MD.
--- NOTE | 2016-11-12 16:46 | RAD ---
INDICATION: Left arm numbness COMPARISON: CT cervical spine September 14, 2016 TECHNIQUE: Coronal T2, sagittal T1, T2, inversion recovery, and axial T1 and T2-weighted images were acquired. FINDINGS: Craniocervical junction: The craniocervical junction is unremarkable. Cervical alignment Normal. Cord: There are no intrinsic abnormalities. Vertebrae: There are no focal marrow signal abnormalities. Disc spaces: C2-C3: Normal C3-C4: Minor disc space narrowing. Minor uncinate process spurring. Mild partial effacement of CSF anterior to the cord secondary to post there is spondylitic ridge formation. Wide canal patency. No direct nerve root impingement. C4-C5: Mild disc space narrowing with posterior spondylitic ridge formation and uncinate process spurring. Near complete effacement of CSF anterior to the cord. No direct cord compression. Mild bilateral foraminal narrowing. C5-C6: Disc space narrowing with broad-based circumferential bulging the disc with effacement of CSF anterior to the cord. No deformity of the cord. Uncinate process spurring leading to moderate bilateral foraminal narrowing. C6-C7: Broad-based circumferential bulging of the disc with effacement of CSF anterior to the cord. No deformity of the cord. Mild bilateral foraminal narrowing. C7-T1: Normal Soft tissues:The prevertebral soft tissues are normal. Other:None IMPRESSION: Multilevel level degenerative disease as described with multilevel foraminal narrowing most severe at C5-C6. There is an AP diameter canal at multiple levels but there is no significant canal stenosis and no deformity of the cord.
--- NOTE | 2016-11-12 16:52 | RAD ---
INDICATION: Pain and numbness COMPARISON: CTA head and neck September 22, 2016 TECHNIQUE: 3-D phase contrast, axial source images was acquired. Reconstructed images of the anterior posterior circulation were generated. FINDINGS: Right carotid: The carotid artery at the skull base, carotid siphon, and carotid termination appear normal. Left carotid: The carotid artery at the skull base, carotid siphon, and carotid termination appear normal. Right middle and anterior cerebral arteries: There are no MR angiographic abnormalities of the middle or anterior cerebral arteries. Left middle and anterior cerebral arteries: There are no MR angiographic abnormalities of the middle or anterior cerebral arteries Right vertebral: The MR angiographic appearance of the visualized vertebral artery is normal. Left vertebral: The MR angiographic appearance of the visualized vertebral artery is normal. Basilar artery: The basilar artery and basilar tip appear normal. Posterior cerebral arteries: The distal distribution of the right and left posterior cerebral arteries is normal. [place]: The MR angiographic appearance of the [place] is normal. The left anterior communicating artery is diminutive which is likely a variant. This is been described previously. Source images show no focal brain parenchymal abnormalities or abnormal areas of enhancement. IMPRESSION: NO SPECIFIC MR ANGIOGRAPHIC ABNORMALITIES
--- NOTE | 2016-11-12 16:55 | RAD ---
INDICATION: Pain and numbness COMPARISON: CTA of the head and neck September 14, 2016 TECHNIQUE: Axial 2-D [id number] and 3-D [id number] slab imaging imaging of the neck was performed with coronal and sagittal reconstructions. FINDINGS: Arch: Limited evaluation of the aortic arch demonstrates no MR angiography adenitis. Left carotid: The left common carotid artery, carotid bifurcation, and internal carotid artery are widely patent to the level of the skull base. There are no MR angiography abnormalities. Right carotid: The right common carotid artery, carotid bifurcation, and internal carotid artery are widely patent to the level of the skull base. There are no MR angiogram abnormalities. Vertebrobasilar: The vertebral arteries and visualized basilar artery are patent. There are no MR angiographic abnormalities. IMPRESSION: NO MR ANGIOGRAPHIC ABNORMALITIES
--- NOTE | 2016-11-12 18:11 | CONSULT ---
Subjective Date of Service: 11/12/16 Interval History: 61 yo M with hx of CAD s/p stent x2, STEMI 09/2016, GERD, anxiety, MADY presents with persistent neck discomfort/numbness. Patient states symptoms have been going on for a month or so. Feels odd sensation which he describes as similar to numbness but not exactly, which originates in the posterior neck and radiates to the R jaw. It has been intermittent, coming and going with complete resolution in between. He has also felt dizziness at times as well which he feels is due to his Amiodarone as he was told this would be a side effect. This has been bothersome and he has spoken to his Cardiology office but they would like to continue it at this time due to his arrhythmia that occured around the time of his STEMI. He has been having episodes at times on the way to his cardiac rehab but he has been able to participate and feels he is making progress there. He spoke with his Cardiology office today about his neck symptoms and they told him to come to the hospital for further evaluation. He says he wants to make sure "I don't have a bleed or an aneurysm" but otherwise feels about as he has for the past months. Family History: Findings - M - DM, F - GI bleed Social History: Findings - No hx of tobacco abuse, EtOH abuse or illicit drug use Past Medical History: Findings - CAD, GERD, anxiety Review of Systems - Measurements Intake and Output: Intake and Output Last 24 Hours 11/10/16 11/11/16 11/12/16 11/13/16 06:59 06:59 06:59 06:59 Weight 99.79 kg - Review of Systems Constitutional Symptoms: Negative: Fatigue, Fever, Night Sweats Dermatology: Positive: Normal HEENT: Positive: Normal Eyes: Positive: Normal Thyroid: Positive: Normal Pulmonary: Negative: Cough, Wheezing, Shortness of Breath Cardiology: Negative: Chest Pain, Shortness of Breath Gastroenterology: Negative: Nausea, Vomiting, Constipation, Diarrhea Genital - Urinary: Positive: Normal Endocrinology: Positive: Normal Neurology: Positive: Numbness\\Paresthesiae Objective Vital Signs 11/12/16 11/12/16 16:45 17:00 Temperature 98.8 F Pulse Rate 104 71 Blood Pressure 136/75 135/81 (mmHg) O2 Sat by Pulse 94 99 Oximetry Oxygen Devices in Use Now: None Appearance: Middle-aged, M, laying in bed in NAD Eyes: No Scleral Icterus Ears/Nose/Mouth/Throat: Mucous Membranes Moist Neck: NL Appearance and Movements; NL JVP Respiratory: Symmetrical Chest Expansion and Respiratory Effort, Clear to Auscultation Cardiovascular: NL Sounds; No Murmurs; No JVD, RRR Abdominal: NL Sounds; No Tenderness; No Distention Lymphatic: No Cervical Adenopathy Extremities: No Edema Skin: No Rash or Ulcers Neurological: Alert and Oriented x 3, NL Muscle Strength and Tone, - - No numbness noted on exam, no TTP along cervical spine Result Diagrams: 11/12/16 10:37 11/12/16 10:37 Assessment/Plan - Billing Neck discomfort/numbness and light-headedness in a 61 yo M with hx of CAD, GERD , anxiety. Spoke at length with the patient and his about numerous symptoms he has had. The dizziness correlates with when he began taking the Amiodarone. Seems that he is very sensitive to medications and that he has been having a lot of trouble with the Amiodarone but Dr. Yanez's office would like him to remain on this medication for now. I don't think his symptoms are cardiac related at all and would not keep in the hospital for any further cardiac monitoring. Spoke with Dr. Coughlin who reviewed the patient's MRI and she also sees no reason to keep the patient hospitalized. MRA of the head and neck are normal. CT shows some cervical stenosis but the patient states this was present on previous MRIs in the past. He would prefer to be discharged home. He will follow-up with cardiology at his upcoming scheduled appointment.
--- NOTE | 2016-11-12 18:43 | PN ---
IYovanny Billy, scribed for Champ Melendez MD on 11/12/16 at 1755 . Progress Note - Progress Note Note: EKG at 1735: NSR 71 bpm, no ST elevation. MRA Head: No MR angiographic abnormalities. MRA Neck: No specific MR angiographic abnormalities. MRI Neck: Multilevel level degenerative disease as described with multilevel foraminal narrowing most severe at C5-C6. There is an AP diameter canal at multiple levels but there is no significant canal stenosis and no deformity of the cord. Discussed case with Dr. Byrd (cardiology) at 1805. The documentation as recorded by the scribeYovanny Billy accurately reflects the service I personally performed and the decisions made by , Champ Melendez MD.
--- NOTE | 2016-11-12 19:21 | CONS ---
NEUROLOGY CONSULTATION: DATE OF CONSULT: 11/12/16 LOCATION: The patient is in the emergency department. REQUESTING PHYSICIAN: Dr. Melendez. REASON FOR CONSULT: Numbness and lightheadedness. HISTORY OF PRESENT ILLNESS: Fito Restrepo is a 61-year-old man with a history of coronary artery disease, status post stent to the left anterior descending artery at the beginning of September as well as a reported history of hypoglycemia and anxiety, who presented to the emergency department today with symptoms of numbness in the right side of his neck as well as numbness in the outer aspects of both ankles and lightheadedness. He was accompanied by his . The sequence of events is somewhat difficult to pin down from the patient as are the exact symptoms, which prompted this presentation to the emergency department today, but the patient reports since approximately beginning of August, he has been having episodes of tightness and numbness and possibly some tingling involving the right side of his neck, which stretches up into the right jaw and then also into the back of the head at times. Sometimes, this is associated with headache in the posterior occipital region and these symptoms sometimes wake him up from sleep. They are typically intermittent and can come on at times when he changes position or when he turns his head, but at other times may come on when he is at rest as well. Associated with this, he will sometimes feel lightheaded as though he is going to pass out. He denies any vertigo. These symptoms were persistent, he says nearly constant all day yesterday and this morning when he woke up, in addition to the numbness in his neck, he had some numbness in the outer aspects of both ankles and this concerned him to the point where he presented to the emergency department for further evaluation. He also reports that he has been having some migrating muscle pains, which will wake him up out of sleep and can involve his legs as well as his arms and torso, and he has been concerned that this has been related to his Lipitor, so he recently called Dr. Cadet and got permission to stop the medication at least temporarily to see if this would improve. He says the muscle pains have been a little bit better since he stopped that medication. It seems that when he wakes up in the middle of the night and he has this constellation of symptoms, he will take Xanax and it will typically alleviate many of his symptoms. He presented on September 22 with a headache in the posterior head region as well as some of this numbness in his neck and after numerous studies including a CT angiogram of the head and neck and CT of the chest, he was discharged home. He reports that he had some reaction to the contrast dye during that ER visit and he "passed out" when coming back from Radiology and also reports having a shaking spell. The following day, he returned with chest pain and was diagnosed with an ST- elevation NH, went to the analytical lab analyst and had stenting to his left anterior descending artery, which was then complicated by VFib arrest on the table. He was successfully resuscitated and initially was in atrial fibrillation but then converted to normal sinus rhythm during that stay with amiodarone. He has been participating in cardiac rehab, but says he has had difficulty tolerating the medications that he has been placed on including Brilinta, metoprolol, and Lipitor. Neurology consultation was requested for evaluation of these symptoms. Dr. Melendez had ordered MRI of the cervical spine when I had spoken with him earlier and I also suggested MRA of the head and neck as the CTA that was done back in August showed some abnormalities, which are of unclear clinical significance and further detailed below. PAST MEDICAL HISTORY: 1. Coronary artery disease, status post stent to the proximal LAD for 99% occlusion on 09/23/16. He also had a previous stent to the LAD in 2006. 2. GERD. 3. Anxiety. PAST SURGICAL HISTORY: Cardiac catheterization. HOME MEDICATIONS: 1. Brilinta 90 mg twice daily. 2. Potassium 10 mEq daily. 3. Nitroglycerin 0.4 mg q.5 minutes p.r.n. 4. Metoprolol 50 mg daily. 5. Famotidine 20 mg daily. 6. B vitamin complex. 7. Aspirin 81 mg daily. 8. Amiodarone 200 mg daily. 9. Alprazolam 0.5 mg daily. 10. The patient had been on Lipitor, but stopped this a few days ago. ALLERGIES: TETRACYCLINE causes itching, BELLADONNA, and IODINATED CONTRAST AGENTS cause agitation. FAMILY HISTORY: Diabetes. SOCIAL HISTORY: No tobacco, alcohol, or drug use. He lives with his . 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 REVIEW OF SYSTEMS: As per the HPI, otherwise negative. PHYSICAL EXAM: Vital Signs: Temperature 98.3, blood pressure 169/98, heart rate 67, and oxygen saturation 99% on room air. On general examination, he is in no acute distress. He is a pleasant gentleman. His heart is in a regular rate and rhythm with no murmurs, rubs, or gallops. Lungs are clear to auscultation bilaterally. There are no carotid bruits. There is no lower extremity edema. Palpation of the cervical paraspinal muscles as well as the trapezius revealed a moderate degree of spasm. On neurologic examination, his mental status is normal. His speech is fluent without dysarthria or aphasia. On cranial nerve testing, the pupils are equal, round, and reactive from 4 to 3 mm bilaterally. Versions are full without nystagmus. Blood are full to confrontation. Facial sensation is intact in the V1 and V2 distributions to light touch, but subjectively diminished in the V3 distributions bilaterally to 80% of normal. Pinprick was normal in V1 through V3 distribution. Facial musculature is full and symmetric. Hearing is intact to finger rub. The palate elevates symmetrically and the tongue is midline. On motor examination, there is normal bulk and tone in the upper and lower extremities. Strength is full both proximally and distally. On sensory testing, sensation to pinprick was diminished in a patchy fashion over the right neck as well as the right upper extremity such that there was diminished sensation to pinprick over the radius, but not the ulna and then over the upper arm was diminished to pinprick as well. In the left upper extremity, he seemed to endorse some patchy and inconsistent diminished sensation to pinprick. In the lower extremities, sensation was again diminished to pinprick in a patchy fashion over the medial and lateral ankles, but not circumferentially and not over the tops of the feet. Proprioception was intact in the great toes. Vibration was diminished to approximately 5 seconds in the great toes bilaterally, 15 seconds at the ankles, 30 seconds at the fingers bilaterally. Reflexes were 2+ in the biceps, brachioradialis, and triceps, knees and absent at the ankles. Toes were downgoing bilaterally. Qhgajf-[id number] and heel-to- peraza were intact without ataxia. Romberg was negative. He was able to heel and toe walk and was also able to tandem walk. DIAGNOSTIC STUDIES/LAB DATA: Laboratory data from today was reviewed and includes an essentially normal CBC, CMP notable for a creatinine of 1.24, normal LFTs, negative troponin, and TSH of 3.02. His urinalysis was essentially negative. Coagulation studies were normal. On September 22, he had a CT of the cervical spine, which showed mild degenerative changes including loss of intervertebral disk height. He also had a normal CT of the brain at that time. CTA of the head was also obtained at that time and the interpretation indicates there was coarsely calcified atherosclerosis of the right carotid bulb causing approximately 50% luminal narrowing. There was also questionable filling defect at the origin of the left subclavian artery and the suggestion was to correlate the signs or symptoms of subclavian steal syndrome. The left anterior cerebral artery and anterior communicating artery of the [place] were diminutive relative to the contralateral side and there was an overall appearance of reduced arterial filling in the distal branches of the left MCA distribution relative to the right. IMPRESSION: Fito Restrepo is a 61-year-old man with a history of coronary artery disease, status post recent stenting, who is presenting with symptoms of numbness in the right side of the neck, traveling up into the head sometimes associated with headache as well as episodes of lightheadedness, which he describes as being as though he is going to pass out and bilateral ankle numbness. He also has migratory muscle pains. It is difficult to tie all of these symptoms together into one unifying diagnosis. I note that he also indicates that many of these symptoms will improve when he takes the Xanax at night. There may be some underlying contribution of anxiety here. On exam, however, he does potentially have some evidence of length-dependent sensory neuropathy, though he really does not complain of symptoms of this since he indicates that his numbness in his feet has only started in the last day or so. Nevertheless, he seems to have reduced vibratory sensation and absent ankle reflexes. As an outpatient, he could have nerve conduction studies to further investigate this and if a neuropathy is identified, then he should have appropriate lab studies to work up for potential etiology. I think it is possible that his neck numbness and headache have to do with musculoskeletal problems and in particular noted spasms in his neck as well as his trapezius muscles. Apparently, when his was rubbing his neck last night, she noticed marked spasm of his trapezius and neck muscles. He is undergoing MRI studies as detailed above and I think if those are normal, then from a neurologic perspective, there is nothing necessitating an admission to the hospital. However, I would defer to Dr. Melendez as to whether there are other issues which may require his admission to the hospital. The patient is welcome to follow up in my office as an outpatient for nerve conduction studies if he desires. As an outpatient, his primary care physician should refer him for physical therapy for his neck. [id number]/[facility] #: [id number] MARGARET
[2016-11-12 19:52] LABS: Troponin I 0.01 ng/mL (<0.04)
--- NOTE | 2016-11-12 20:59 | ED ---
Rasheed Ness Janilya, scribed for Krista Pulido MD on 11/12/16 at 1918 . Progress - Progress Note Progress Note: A 61 y/o male was signed out from Dr. Melendez at shift change, pending orthostatic VS, CPK, and troponin levels. Dr. Melendez has consulted with Dr. Coughlin (neurology) and Dr. Byrd (cardiology) . Pt's chief complaint was dizziness when standing up and tight feeling of face. At this time, pt denies CP, SOB, and tightness of face. No FHx of DM. @ 2010: Trop level is flat. Pt is not orthostatic, although symptomatic when going from lying to sitting. - Results/Orders Results/Orders: Trop level is 0.01 CPK 166 U/L Orthostatic: Lying - HR 71, BP 140/75 Sititng - HR 77, BP 151/88 Standing - HR 72, BP 139/78 EKG at 20:18 64 bpm, NSR, no AV/IV conduction time changes, normal axis, no acute changes, no significant changes from 11/12 at 17:35. Re-Evaluation - Re-Evaluation First Eval Re-Evaluation Time: 20:42 Change: Improved Comment: Discussed EKG results and dx instructions. Course/Dx - Course Course Of Treatment: 61 yr old male with dizziness, feels like will pass out, numbness to right face, and to lower legs. He is being seen by Neurology, and by medicine for admission. MRI ordered as requested by Dr Coughlin, neurology. He is status post cardiac stents and arrest early September of this year. Troponins are flat in ED. EKG x 2 unchanged. CK 166, was higher for pt. Not orthostatic, although symptomatic when going from lying to sitting. After consult with Dr. Byrd, in addition to Dr. Coughlin, will decrease pt back to his pre-STEMI dose of metoprolol of 25mg qd. Pt and voice understanding. They are working to get established with new PCP. Pt also pursuing possible parathyroid problem. Advised to return to ED if any new or worsening symptoms. - Diagnoses Provider Diagnoses: Dizziness, Right facial numbness - Provider Notifications Discussed Care Of Patient With: Dr. Coughlin (neurology) at 1041: will consult for patient in the ED. Dr Eric at 1500. Dr. Byrd by Dr. Melendez - Critical Care Time Critical Care Time: 30-74 min - 30 min Discharge - Discharge Plan Condition: Good Disposition: HOME Diagnostics - Vital Signs Vital Signs Temp Pulse Resp BP Pulse Ox 11/12/16 15:00 71 16 175/98 98 11/12/16 14:30 65 18 169/98 99 11/12/16 14:00 61 15 137/82 99 11/12/16 13:30 61 19 133/79 98 11/12/16 13:00 64 12 141/80 99 11/12/16 12:59 63 99 11/12/16 12:58 138/75 11/12/16 10:07 98.3 F 77 20 163/86 99 11/12/16 10:01 98.3 F 79 20 163/86 99 - Laboratory Lab Results: Lab Results 11/12/16 11/12/16 11/12/16 Range/Units 10:37 10:37 10:37 WBC 7.3 (3.5-10.8) 10^3/ul RBC 5.26 (4.0-5.4) 10^6/ul Hgb 15.6 (14.0-18.0) g/dl Hct 47 (42-52) % MCV 88 (80-94) fL MCH 30 (27-31) pg MCHC 34 (31-36) g/dl RDW 14 (10.5-15) % Plt Count 214 (150-450) 10^3/ul MPV 9 (7.4-10.4) um3 Neut % (Auto) 74.3 (38-83) % Lymph % (Auto) 17.0 L (25-47) % [place] % (Auto) 6.7 (1-9) % Eos % (Auto) 1.2 (0-6) % Baso % (Auto) 0.8 (0-2) % Absolute Neuts (auto) 5.4 (1.5-7.7) 10^3/ul Absolute Lymphs (auto) 1.2 (1.0-4.8) 10^3/ul Absolute Monos (auto) 0.5 (0-0.8) 10^3/ul Absolute Eos (auto) 0.1 (0-0.6) 10^3/ul Absolute Basos (auto) 0.1 (0-0.2) 10^3/ul Absolute Nucleated RBC 0 10^3/ul Nucleated RBC % 0 INR (Anticoag Therapy) 0.98 (0.89-1.11) APTT 29.3 (26.0-36.3) seconds Sodium Pending Potassium Pending Chloride Pending Carbon Dioxide Pending Anion Gap Pending BUN Pending Creatinine Pending Est GFR ( Amer) Pending Est GFR (Non-Af Amer) Pending BUN/Creatinine Ratio Pending Glucose Pending Lactic Acid (0.5-2.0) mmol/L Calcium Pending Magnesium Pending Total Bilirubin Pending AST Pending ALT Pending Alkaline Phosphatase Pending Troponin I 0.01 (<0.04) ng/mL B-Natriuretic Peptide ( - 100) pg/mL Total Protein Pending Albumin Pending Globulin Pending Albumin/Globulin Ratio Pending TSH 3.02 (0.34-5.60) mcIU/mL Urine Color Urine Appearance Urine pH (5-9) Ur Specific [place] (1.010-1.030) Urine Protein (Negative) Urine Ketones (Negative) Urine Blood (Negative) Urine Nitrate (Negative) Urine Bilirubin (Negative) Urine Urobilinogen (Negative) Ur Leukocyte Esterase (Negative) Urine WBC (Auto) (Absent) Urine RBC (Auto) (Absent) Urine Bacteria (Absent) Urine Sperm (Absent) Urine Glucose (Negative) 11/12/16 11/12/16 11/12/16 Range/Units 10:37 10:37 11:29 WBC (3.5-10.8) 10^3/ul RBC (4.0-5.4) 10^6/ul Hgb (14.0-18.0) g/dl Hct (42-52) % MCV (80-94) fL MCH (27-31) pg MCHC (31-36) g/dl RDW (10.5-15) % Plt Count (150-450) 10^3/ul MPV (7.4-10.4) um3 Neut % (Auto) (38-83) % Lymph % (Auto) (25-47) % [place] % (Auto) (1-9) % Eos % (Auto) (0-6) % Baso % (Auto) (0-2) % Absolute Neuts (auto) (1.5-7.7) 10^3/ul Absolute Lymphs (auto) (1.0-4.8) 10^3/ul Absolute Monos (auto) (0-0.8) 10^3/ul Absolute Eos (auto) (0-0.6) 10^3/ul Absolute Basos (auto) (0-0.2) 10^3/ul Absolute Nucleated RBC 10^3/ul Nucleated RBC % INR (Anticoag Therapy) (0.89-1.11) APTT (26.0-36.3) seconds Sodium Potassium Chloride Carbon Dioxide Anion Gap BUN Creatinine Est GFR ( Amer) Est GFR (Non-Af Amer) BUN/Creatinine Ratio Glucose Lactic Acid 1.0 (0.5-2.0) mmol/L Calcium Magnesium Total Bilirubin AST ALT Alkaline Phosphatase Troponin I (<0.04) ng/mL B-Natriuretic Peptide 33 ( - 100) pg/mL Total Protein Albumin Globulin Albumin/Globulin Ratio TSH (0.34-5.60) mcIU/mL Urine Color Yellow Urine Appearance Clear Urine pH 7.0 (5-9) Ur Specific [place] 1.009 L (1.010-1.030) Urine Protein Negative (Negative) Urine Ketones Negative (Negative) Urine Blood Negative (Negative) Urine Nitrate Negative (Negative) Urine Bilirubin Negative (Negative) Urine Urobilinogen Negative (Negative) Ur Leukocyte Esterase Negative (Negative) Urine WBC (Auto) Absent (Absent) Urine RBC (Auto) Trace(0-2/hpf) (Absent) Urine Bacteria Absent (Absent) Urine Sperm Present H (Absent) Urine Glucose Negative (Negative) Result Diagrams: 11/12/16 10:37 11/12/16 10:37 Lab Statement: Any lab studies that have been ordered have been reviewed, and results considered in the medical decision making process. - EKG 2018 Cardiac Rate: NL - 64 bpm EKG Rhythm: Sinus Rhythm EKG Interpretation: No AV/IV conduction time changes, normal axis, no acute changes EKG Comparison: No Significant Change - from 11/12/2016 at 17:35 The documentation as recorded by the Rasheed marroquin Janilya accurately reflects the service I personally performed and the decisions made by Ashok haley Barbara J, MD.
[2016-11-12 21:20] VITALS: BP 139/76
== END 2016-11-12 21:20 | disposition home or self-care (01) ==
LOC: ED 09:55 → MEDTELE 15:20 → UNDOADMOB 15:20 → MEDTELE 21:20
DX: R42 Dizziness and giddiness (principal); R20.0 Anesthesia of skin; I25.10 Atherosclerotic heart disease of native coronary artery without angina pectoris; F41.9 Anxiety disorder, unspecified; K21.9 Gastro-esophageal reflux disease without esophagitis; Z79.82 Long term (current) use of aspirin; Z95.818 Presence of other cardiac implants and grafts; G47.33 Obstructive sleep apnea (adult) (pediatric)
CPT/HCPCS: 36415; 70544; 70547; 72141; 80053; 81003; 82550; 83605; 83735; 83880; 84443; 84484; 85025; 85610; 85730; 93005; 99283

== ENCOUNTER → 2017-01-24 01:11 | Emergency (ER) | payer OTHER ==
[~2017-01-24 01:11] MED LIST: Al Hydrox/Mg Hydrox/Simet LIQ* 30 ML UDC PO ONE; Lidocaine 2% VISCOUS* 15 ML UDC PO ONE; NS 0.9% 1000 ML* 1,000 ML IV SCH
[2017-01-24 02:41] LABS: Hematocrit 42 % (42-52); Hemoglobin 14.4 g/dl (14.0-18.0); Mean Corpuscular HGB Conc 34 g/dl (31-36); Mean Corpuscular Hemoglobin 31 pg (27-31); Mean Corpuscular Volume 91 fL (80-94); Mean Platelet Volume 8 um3 (7.4-10.4); Red Blood Count 4.66 10^6/ul (4.0-5.4); Red Cell Distribution Width 14 % (10.5-15); White Blood Count 6.9 10^3/ul (3.5-10.8)
[2017-01-24 02:56] LABS: ALT 19 U/L (7-52); AST 26 U/L (13-39); Alkaline Phosphatase 66 U/L (34-104); Anion Gap 6 mmol/L (2-11); BUN/Creatinine Ratio 14.6 (8-20); Blood Urea Nitrogen 19 mg/dL (6-24); C Reactive Protein < 1.00 mg/L (< 5.00); CO2 Carbon Dioxide 25 mmol/L (22-32); Calcium 8.8 mg/dL (8.6-10.3); Chloride 106 mmol/L (101-111); Creatine Kinase 239 U/L (10-223); EGFR African American 72.2 (>60); EGFR Non-African American 56.1 (>60); Globulin 2.9 g/dL (2-4); Glucose 93 mg/dL (70-100); Lipase 15 U/L (11.0-82.0); Potassium 3.8 mmol/L (3.5-5.0); Sodium 137 mmol/L (133-145); Total Protein 6.9 g/dL (6.4-8.9)
[2017-01-24 02:58] LABS: Troponin I 0.01 ng/mL (<0.04); Urine Bilirubin Negative (Negative); Urine Glucose Negative (Negative); Urine Nitrite Negative (Negative)
[2017-01-24 03:04] LABS: TSH (Thyroid Stimulating Horm) 3.88 mcIU/mL (0.34-5.60)
--- NOTE | 2017-01-24 04:03 | ED ---
Huber Ness SooYoung, scribed for Jelani Dawson MD on 01/24/17 at 0335 . HPI Chest Pain - HPI Summary HPI Summary: A 61 y/o M presents to ED with c/o palpitations onset approx one week, with a worse episode occurring tonight. He states the "PVCs are getting to me." Palpitations occur more often in evening/nighttime while at rest. Describes them as feeling sharp, spasmodic. Denies CP, SOB. Pert PMHx: STEMI, stent in September [address] Steele. Pt is on a blood thinner. 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 - History of Current Complaint Chief Complaint: EDDysrhythmPalp Time Seen by Provider: 01/24/17 03:24 Hx Obtained From: Patient, Family/Advertising Statistical Clerk Onset/Duration: Started Weeks Ago, Still Present Timing: Intermittent Initial Severity: Moderate Current Severity: Moderate Character: Sharp/Stabbing, Other: - spasms Associated Signs and Symptoms: Negative: Chest Pain, Shortness of Breath - Additional Pertinent History Primary Care Physician: ROZ - Allergy/Home Medications Allergies/Adverse Reactions: Allergies Allergy/AdvReac Type Severity Reaction Status Date / Time Tetracycline Allergy Mild Itching Verified 01/24/17 02:13 Bell[place]onna Allergy Unknown Unknown Verified 01/24/17 02:13 Reaction Details Iodinated Diagnostic Agents Allergy Agitation Verified 01/24/17 02:13 ct dye Allergy aggitation Uncoded 01/24/17 02:13 PMH/Surg Hx/FS Hx/Imm Hx Previously Healthy: No Endocrine/Hematology History: Denies: Hx Diabetes Cardiovascular History: 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, midsternal, upper ribs, Hx Coronary Artery Disease, Hx Myocardial Infarction Denies: Hx Congestive Heart Failure, Hx Hypercholesterolemia, Hx Hypertension , Hx Pacemaker/ICD, Hx Valvular Heart Disease Respiratory History: Denies: Hx Asthma, Hx Chronic Obstructive Pulmonary Disease (COPD) GI History: Reports: Hx Gastroesophageal Reflux Disease History: Denies: Hx Dialysis, Hx Renal Disease Musculoskeletal History: Reports: Other Musculoskeletal History - Herniated discs in the C-spine Sensory History: Reports: Hx Contacts or Glasses Denies: Hx Hearing Aid Opthamlomology History: Reports: Hx Contacts or Glasses Psychiatric History: Denies: Hx Panic Disorder - Surgical History Surgery Procedure, Year, and Place: cardiac stent 2006 T[employer]IS EXPRESS CLEARED FOR 1.5 OR 3T SGF 700G/CM PER [employer] IN NORMAL OPERATING SCAN MODE. CARDIAC STENT SEPTEMBER 23, 2016- [facility]- [facility] STENT - Immunization History Date of Tetanus Vaccine: unk Date of Influenza Vaccine: none Infectious Disease History: Yes Infectious Disease History: Denies: Traveled Outside the [place] in Last 30 Days - Family History Known Family History: Positive: Unknown, Blood Disorder Negative: Cardiac Disease, Hypertension - Social History Occupation: Retired Lives: With Family Alcohol Use: None Hx Substance Use: No Substance Use Type: Reports: None Hx Tobacco Use: No Smoking Status (MU): Never Smoked Tobacco Review of Systems Negative: Fever Positive: Palpitations. Negative: Chest Pain Negative: Shortness Of Breath All Other Systems Reviewed And Are Negative: Yes Physical Exam Triage Information Reviewed: Yes Vital Signs On Initial Exam: Initial Vitals Temp Pulse Resp BP Pulse Ox 98.4 F 72 16 166/94 100 01/24/17 01:15 01/24/17 01:15 01/24/17 01:15 01/24/17 01:15 01/24/17 01:15 Vital Signs Reviewed: Yes Appearance: Positive: Well-Appearing, No Pain Distress Skin: Positive: Warm, Skin Color Reflects Adequate Perfusion, Dry Head/Face: Positive: Normal Head/Face Inspection Eyes: Positive: EOMI, LESIA ENT: Positive: Normal ENT inspection Neck: Positive: Supple, Nontender Respiratory/Lung Sounds: Positive: Clear to Auscultation, Breath Sounds Present Cardiovascular: Positive: RRR Abdomen Description: Positive: Nontender, Soft Bowel Sounds: Positive: Present Musculoskeletal: Positive: Normal, Strength/ROM Intact Neurological: Positive: Normal, Sensory/Motor Intact, Alert, Oriented to Person Place, Time Psychiatric: Positive: Affect/Mood Appropriate - Ashok Coma Scale Coma Scale Total: 15 Diagnostics - Vital Signs Vital Signs Temp Pulse Resp BP Pulse Ox 01/24/17 01:15 98.4 F 72 16 166/94 100 - Laboratory Lab Results: Lab Results 01/24/17 01/24/17 01/24/17 Range/Units 02:25 02:25 02:25 WBC 6.9 (3.5-10.8) 10^3/ul RBC 4.66 (4.0-5.4) 10^6/ul Hgb 14.4 (14.0-18.0) g/dl Hct 42 (42-52) % MCV 91 (80-94) fL MCH 31 (27-31) pg MCHC 34 (31-36) g/dl RDW 14 (10.5-15) % Plt Count 196 (150-450) 10^3/ul MPV 8 (7.4-10.4) um3 Neut % (Auto) 58.1 (38-83) % Lymph % (Auto) 30.8 (25-47) % [place] % (Auto) 7.9 (1-9) % Eos % (Auto) 2.4 (0-6) % Baso % (Auto) 0.8 (0-2) % Absolute Neuts (auto) 4.0 (1.5-7.7) 10^3/ul Absolute Lymphs (auto) 2.1 (1.0-4.8) 10^3/ul Absolute Monos (auto) 0.5 (0-0.8) 10^3/ul Absolute Eos (auto) 0.2 (0-0.6) 10^3/ul Absolute Basos (auto) 0.1 (0-0.2) 10^3/ul Absolute Nucleated RBC 0 10^3/ul Nucleated RBC % 0 INR (Anticoag Therapy) 0.92 (0.89-1.11) APTT 29.4 (26.0-36.3) seconds Sodium (133-145) mmol/L Potassium (3.5-5.0) mmol/L Chloride (101-111) mmol/L Carbon Dioxide (22-32) mmol/L Anion Gap (2-11) mmol/L BUN (6-24) mg/dL Creatinine (0.67-1.17) mg/dL Est GFR ( Amer) (>60) Est GFR (Non-Af Amer) (>60) BUN/Creatinine Ratio (8-20) Glucose (70-100) mg/dL Lactic Acid (0.5-2.0) mmol/L Calcium (8.6-10.3) mg/dL Magnesium (1.9-2.7) mg/dL Total Bilirubin (0.2-1.0) mg/dL AST (13-39) U/L ALT (7-52) U/L Alkaline Phosphatase (34-104) U/L Total Creatine Kinase (10-223) U/L CK-MB (CK-2) (0.6-6.3) ng/mL Troponin I (<0.04) ng/mL C-Reactive Protein (< 5.00) mg/L B-Natriuretic Peptide ( - 100) pg/mL Total Protein (6.4-8.9) g/dL Albumin (3.2-5.2) g/dL Globulin (2-4) g/dL Albumin/Globulin Ratio (1-3) Lipase (11.0-82.0) U/L TSH (0.34-5.60) mcIU/mL Urine Color Straw Urine Appearance Clear Urine pH 6.0 (5-9) Ur Specific [place] 1.006 L (1.010-1.030) Urine Protein Negative (Negative) Urine Ketones Negative (Negative) Urine Blood Negative (Negative) Urine Nitrate Negative (Negative) Urine Bilirubin Negative (Negative) Urine Urobilinogen Negative (Negative) Ur Leukocyte Esterase Negative (Negative) Urine Glucose Negative (Negative) 01/24/17 01/24/17 01/24/17 Range/Units 02:25 02:25 02:25 WBC (3.5-10.8) 10^3/ul RBC (4.0-5.4) 10^6/ul Hgb (14.0-18.0) g/dl Hct (42-52) % MCV (80-94) fL MCH (27-31) pg MCHC (31-36) g/dl RDW (10.5-15) % Plt Count (150-450) 10^3/ul MPV (7.4-10.4) um3 Neut % (Auto) (38-83) % Lymph % (Auto) (25-47) % [place] % (Auto) (1-9) % Eos % (Auto) (0-6) % Baso % (Auto) (0-2) % Absolute Neuts (auto) (1.5-7.7) 10^3/ul Absolute Lymphs (auto) (1.0-4.8) 10^3/ul Absolute Monos (auto) (0-0.8) 10^3/ul Absolute Eos (auto) (0-0.6) 10^3/ul Absolute Basos (auto) (0-0.2) 10^3/ul Absolute Nucleated RBC 10^3/ul Nucleated RBC % INR (Anticoag Therapy) (0.89-1.11) APTT (26.0-36.3) seconds Sodium 137 (133-145) mmol/L Potassium 3.8 (3.5-5.0) mmol/L Chloride 106 (101-111) mmol/L Carbon Dioxide 25 (22-32) mmol/L Anion Gap 6 (2-11) mmol/L BUN 19 (6-24) mg/dL Creatinine 1.30 H (0.67-1.17) mg/dL Est GFR ( Amer) 72.2 (>60) Est GFR (Non-Af Amer) 56.1 (>60) BUN/Creatinine Ratio 14.6 (8-20) Glucose 93 (70-100) mg/dL Lactic Acid 0.8 (0.5-2.0) mmol/L Calcium 8.8 (8.6-10.3) mg/dL Magnesium 2.0 (1.9-2.7) mg/dL Total Bilirubin 0.60 (0.2-1.0) mg/dL AST 26 (13-39) U/L ALT 19 (7-52) U/L Alkaline Phosphatase 66 (34-104) U/L Total Creatine Kinase 239 H (10-223) U/L CK-MB (CK-2) 3.3 (0.6-6.3) ng/mL Troponin I 0.01 (<0.04) ng/mL C-Reactive Protein < 1.00 (< 5.00) mg/L B-Natriuretic Peptide 33 ( - 100) pg/mL Total Protein 6.9 (6.4-8.9) g/dL Albumin 4.0 (3.2-5.2) g/dL Globulin 2.9 (2-4) g/dL Albumin/Globulin Ratio 1.4 (1-3) Lipase 15 (11.0-82.0) U/L TSH 3.88 (0.34-5.60) mcIU/mL Urine Color Urine Appearance Urine pH (5-9) Ur Specific [place] (1.010-1.030) Urine Protein (Negative) Urine Ketones (Negative) Urine Blood (Negative) Urine Nitrate (Negative) Urine Bilirubin (Negative) Urine Urobilinogen (Negative) Ur Leukocyte Esterase (Negative) Urine Glucose (Negative) Result Diagrams: 01/24/17 02:25 01/24/17 02:25 Lab Statement: Any lab studies that have been ordered have been reviewed, and results considered in the medical decision making process. - Radiology CXR Xray Interpretation: No Acute Changes - NML Radiology Interpretation Completed By: ED Physician - EKG 1 Cardiac Rate: NL - 75bpm EKG Rhythm: Sinus Rhythm ST Segment: Normal Ectopy: PVCs Chest Pain Course/Dx - Course Course Of Treatment: Pt is a 61 y/o M presents with sharp/spasmodic palpitations onset approx one week, with a worse episode occurring tonight. He states the "PVCs are getting to me." Palpitations occur more often in evening/ nighttime while at rest. Denies CP, SOB. Pert PMHx: STEMI, stent in September [address] Steele. Pt is on a blood thinner. 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 NO CRITICAL CARE TIME. PATIENT'S SX CORRESPOND WITH PVCS ON THE MONITOR. DENIES CHEST PAIN OTHERWISE. NO SOB. SX NOT SIMILAR TO RECENT NE. IMPROVED IN ED. DISCUSSED RESULTS WITH PATIENT/. NO EVIDENCE OF ISCHEMIA. DISCUSSED DISCHARGE, PATIENT IS COMFORTABLE WITH DISCHARGE. Pt given fluids, Lidocaine, Maalox in ED. Labs are WNL except elevated creatinine and elevated total creatinine kinase. UA results are nml except specific gravity of 1.006. EKG shows NSR, no ST elevation, and PVCs. CXR is nml. - Diagnoses Provider Diagnoses: Palpitations, PVC (premature ventricular contraction) Discharge - Discharge Plan Condition: Stable Disposition: HOME Patient Education Materials: Palpitations (ED) Referrals: Colleen Mcclendon RN [Primary Care Provider] - Thi Cadet MD [Medical Doctor] - Additional Instructions: FOLLOW UP WITH YOUR PIPELINE ENGINEER. RETURN TO THE EMERGENCY DEPARTMENT FOR ANY WORSENING OF YOUR CONDITION; CHEST PAIN, SHORTNESS OF BREATH, YOU FEEL ILL OR QUESTIONS OR CONCERNS. The documentation as recorded by the Huber marroquin SooYoung accurately reflects the service I personally performed and the decisions made by me, Jelani Dawson MD.
[2017-01-24 04:06] VITALS: BP 131/83
--- NOTE | 2017-01-24 07:53 | RAD ---
INDICATION: Chest pain COMPARISON: October 03, 2016 TECHNIQUE: An AP portable view obtained at 0218 hours is submitted. FINDINGS: Bones/Soft Tissues: There are no acute bony findings. Cardiomediastinal: The cardiomediastinal silhouette is normal. Lungs: There are no infiltrates. Pleura: There are no pleural effusions. Other: None IMPRESSION: NO ACTIVE DISEASE.
== END | disposition home or self-care (01) ==
LOC: ED 01:11
DX: R00.2 Palpitations (principal); I49.3 Ventricular premature depolarization; Z88.3 Allergy status to other anti-infective agents; Z91.041 Radiographic dye allergy status; I25.2 Old myocardial infarction; I25.119 Atherosclerotic heart disease of native coronary artery with unspecified angina pectoris; Z95.5 Presence of coronary angioplasty implant and graft
CPT/HCPCS: 36415; 71010; 80053; 81003; 82550; 82553; 83605; 83690; 83735; 83880; 84443; 84484; 85025; 85610; 85730; 86140; 93005; 99283; A9270-GY

== ENCOUNTER 2017-08-09 11:45 | Observation (INO) | payer OTHER ==
[2017-08-09 12:43] LABS: ABS Basophils 0 10^3/ul (0-0.2); ABS Eosinophils 0.1 10^3/ul (0-0.6); ABS Lymphocytes 1.4 10^3/ul (1.0-4.8); ABS Monocytes 0.4 10^3/ul (0-0.8); ABS Neutrophils 4.5 10^3/ul (1.5-7.7); ABS Nucleated RBC 0 10^3/ul; Eosinophil % 1.5 % (0-6); Hematocrit 45 % (42-52); Hemoglobin 15.3 g/dl (14.0-18.0); Lymphocyte % 21.1 % (25-47); Mean Corpuscular HGB Conc 34 g/dl (31-36); Mean Corpuscular Hemoglobin 30 pg (27-31); Mean Corpuscular Volume 89 fL (80-94); Mean Platelet Volume 8 um3 (7.4-10.4); Nucleated Red Blood Cells % 0; Platelet Count 236 10^3/ul (150-450); Red Blood Count 5.12 10^6/ul (4.0-5.4); Red Cell Distribution Width 14 % (10.5-15); White Blood Count 6.4 10^3/ul (3.5-10.8)
[2017-08-09 12:58] LABS: EGFR Non-African American 74.2 (>60)
[2017-08-09] MEDS ORDERED: Aspirin Low Dose CHEW TAB* 81 MG PO ONE (15:41)
--- NOTE | 2017-08-09 17:21 | RAD ---
INDICATION: Dizziness COMPARISON: Chest x-ray dated January 24, 2017 TECHNIQUE: Single AP portable view of the chest was obtained. FINDINGS: Image quality is compromised due to the relative inferiority of a portable chest x-ray. The heart and mediastinum exhibit normal size and contour. The lungs are grossly clear. There is no evidence of a large pleural effusion. Visualized bones are normal for the patient's age. IMPRESSION: No radiographic evidence for acute cardiopulmonary abnormality on this portable chest x-ray.
[2017-08-09] MEDS ORDERED: ALPRAZolam TAB* 0.5 MG PO PRN (18:28)
[2017-08-09] MEDS ORDERED: Ticagrelor* 90 MG TAB PO SCH (19:00)
[2017-08-09] MEDS: Potassium Chlor TAB* 10 MEQ TAB.ER PO SCH (19:51)
[2017-08-09] MEDS ORDERED: Metoprolol Tartrate TAB* 25 MG PO ONE (21:00)
[2017-08-09] MEDS ORDERED: Metoprolol Succinate XL TAB* 25 MG PO SCH (21:00)
[2017-08-09] MEDS ORDERED: NS 0.9% 1000 ML* 1,000 ML IV SCH (23:59)
--- NOTE | 2017-08-10 00:32 | HP ---
ADMISSION HISTORY AND PHYSICAL: DATE OF ADMISSION: 08/09/17 PRIMARY CARE PROVIDER: None. The patient has not established after their primary care provider retired. MY ATTENDING WHILE IN THE HOSPITAL: Dr. Arlin Goldstein * (DICTATED BY LAMONT PHAN) CHIEF COMPLAINT: Dizziness, skin tingling. HISTORY OF PRESENT ILLNESS: The patient is a 61-year-old male with past medical history significant for STEMI in September 2016, GERD, anxiety, chronic chest pain, basal cell carcinoma and AFib after his recent [place] and chronic hearing loss who presents with dizziness and skin tingling. The patient says he has this chronically, but it had flared up significantly over the past day. The patient was lying in the cough yesterday and just felt tingling in his legs and then dizziness upon standing. The patient was very alarmed by this because these were prodromal symptoms for his recent STEMI in September 2016. The patient had no shortness of breath except that at baseline which he has as a side effect from his Brilinta. The patient had no palpitations except those that he has at baseline, which consists of occasional missed beat feeling. The patient denies any other complaints such as fevers, chills, nausea,vomiting or recent illness. The patient has increased urinary output after exercise of unknown cause and he has had increased urinary output after a walk from today. The patient is also seeing a neuromuscular specialist for chronically increased CPK and a diagnosis of neuropathy in this emergency department late last year. The patient also has chronic intermittent stabbing pain in his chest and pain behind his ear. The patient has also had intermittent stomach pain for two months, which is worse with eating, feels like gas and resolves after a couple of hours. The patient was admitted to the hospital because these symptoms preceded his previous STEMI for a rule out. The hospitalist service admitted him to have the patient undergo a stress test in the morning due to this being the prodromal presentation for the patient's previous STEMI. PAST MEDICAL HISTORY: 1. STEMI, September 2016. 2. GERD. 3. Anxiety. 4. Chronic chest pain. 5. Weakness. 6. Basal cell carcinoma. 7. Episodic atrial fibrillation. 8. Premature ectopic beats. 9. Chronic hearing loss. PAST SURGICAL HISTORY: Cardiac catheterization with stents in September 2016. MEDICATIONS: 1. Xanax 0.5 mg p.o. daily as needed. 2. Potassium chloride 10 mEq p.o. b.i.d. 3. Aspirin 81 mg p.o. daily. 4. Toprol 25 mg p.o. q.p.m. 5. Brilinta 90 mg p.o. q.p.m. ALLERGIES: TETRACYCLINE, BELLADONNA, and CT DYE. FAMILY HISTORY: The patient's mother and father are both alive in their 80s. The patient's father has a history of GI bleed. The patient's mother has a history of diabetes mellitus. No other known hereditary conditions. SOCIAL HISTORY: The patient never smoked tobacco, drank alcohol or used illicit drug. The patient worked at [employer] for 42 years. The patient is and has two children. REVIEW OF SYSTEMS: A 14-point review of systems was conducted and is negative except as the above. PHYSICAL EXAMINATION GENERAL: The patient is a 61-year-old male, who appears stated age and is sitting comfortably in the bed, in no acute distress. VITAL SIGNS: Temperature 98.8, pulse rate 77, respiratory rate 19, oxygen saturation 99% on room air, blood pressure 143/70. HEENT: Head: Normocephalic, atraumatic. Sclerae anicteric. No conjunctival injection. Nasal mucosa is moist. Oral mucosa is moist. NECK: Supple, nontender. No lymphadenopathy. No carotid bruits auscultated. RESPIRATORY: Clear to auscultation bilaterally. No wheezes, rales, or rhonchi. Good air exchange bilaterally. CARDIAC: Regular rate and rhythm. No clicks, murmurs, gallops, or rubs. Pulses 2+ in the bilateral dorsalis pedis, posterior tibialis and radialis areas. No edema noted on bilateral lower extremities. ABDOMEN: Soft, nontender, nondistended. Bowel sounds present and normoactive in all 4 quadrants. No hepatosplenomegaly. No abdominal bruits are auscultated. NEURO: Cranial nerves II through XII intact except for the patient's hearing loss. The patient has no numbness or tingling around the facial area at this time. Strength 5/5 in the bilateral upper and lower extremities in all muscle groups. Sensation to light touch intact in the lateral upper and lower extremities distally and proximally. Reflexes are 2+ in the bilateral upper extremities with a 1 second delay between the provocation response. Reflex is 1 + in the bilateral patellar and Achilles areas. PSYCHIATRIC: The patient is pleasant and cooperative. SKIN: Clean, dry, and intact. No rash. DIAGNOSTIC STUDIES/LAB DATA: White blood cell count 6.4, red blood cell count 5.12, hemoglobin 15.3, hematocrit 45, MCV 89, MCH 30, platelet count 236. Sodium 135, potassium 4.3, chloride 103, carbon dioxide 27, anion gap 5, BUN 16 , creatinine 1.02, glucose 100, lactic acid 0.8, calcium 9.2. Total bilirubin 0.6, AST 29, ALT 22, alkaline phosphatase 78. Total creatine kinase 170. Troponin-I 0.00 x3. Total protein 6.8, albumin 4.0, globulin 2.8. Chest x-ray from 08/09/17 shows no radiographic evidence for acute cardiopulmonary abnormality on this pleural chest x-ray. Electrocardiogram shows no ST segment changes, normal axis. Regular rate and rhythm. No ectopic beats. No other abnormalities. ASSESSMENT AND PLAN: The patient is a 61-year-old male with a past medical history significant for ST-elevation myocardial infarction in 09/2016, intermittent atrial fibrillation, premature beats and chronic chest pain who presents with dizziness and skin tingling in his lower extremities, which he states were the prodromal symptoms for his previous myocardial infarction. The patient will be ruled out for ischemia with a nuclear medicine stress test in the morning. 1. Rule out myocardial infarction. The patient has no current chest pain; however, he does have dizziness and skin tingling, which were the prodromal symptoms for his previous myocardial infarction. For this reason, the patient has been admitted into the hospital for ruling out myocardial infarction. The patient's troponin was 0.00 x3. The patient had no other pertinent laboratory abnormalities. If negative, the patient should continue his workup for alternative causes for his chest pain, tingling and dizziness with his neuromuscular specialist as scheduled. We will hold patient's metoprolol tomorrow for stress test. 3. Anxiety. Continue Xanax as needed. 4. Gastroesophageal reflux disease. The patient is asymptomatic. 5. History of Atrial fibrillation. The patient's atrial fibrillation occurred after his ST-elevation myocardial infarction and cardiac arrhythmia in the postoperative period. The patient was treated with 3 months of amiodarone when she stopped and has had no recurrence; however, the patient does have premature beats continue. We will continue metoprolol after stress test. 6. DVT prophylaxis. The patient is moderate risk and will have SCDs while in bed. 7. FEN. The patient will have a heart-healthy diet. No caffeine tonight and n.p.o. after midnight. We will order fluids to start at midnight. 12. Code status. The patient will be a full code. The patient's healthcare proxy is his , Emely Barker. 13. Disposition. The patient is admitted to observation for the stress test in the morning. TIME SPENT: Approximately 60 minutes was spent on this admission, 30 of which was spent [id number] with the patient obtaining history and physical and discussing treatment plan plus the plan has been discussed with my attending Dr. Arlin Goldstein and she is in agreement. LAMONT PHAN [id number]/[facility] #: [id number] MTDD
[2017-08-10] MEDS: Potassium Chlor TAB* 10 MEQ TAB.ER PO SCH (08:41)
[2017-08-10] MEDS ORDERED: Aspirin Low Dose CHEW TAB* 81 MG PO SCH (09:00)
[2017-08-10] MEDS ORDERED: Metoprolol Succinate XL TAB* 25 MG PO SCH (09:00)
[2017-08-10 10:10] VITALS: BP 128/69
--- NOTE | 2017-08-10 23:18 | DS ---
CC: Colleen Oneill NP * DISCHARGE SUMMARY: DATE OF ADMISSION: 08/09/17 DATE OF DISCHARGE: 08/10/17 PRIMARY CARE PROVIDER: None at this time. He does not want to establish a new provider, although Colleen Oneill is listed in the medical record. PRIMARY DIAGNOSIS: Presyncope. SECONDARY DIAGNOSES: Include: 1. History of ST-elevation myocardial infarction. 2. Anxiety. 3. Chronic chest pain. 4. Weakness. 5. Episodic atrial fibrillation. MEDICATIONS ON DISCHARGE: Unchanged from admission, include: 1. Brilinta 90 mg in the evening. 2. Aspirin 81 mg daily. 3. Alprazolam 0.5 mg daily as needed. 4. Metoprolol XL 25 mg daily. 5. Potassium chloride 10 mEq daily. PERTINENT LABORATORY DATA: Troponin-I 0.00 on 3 consecutive checks. HISTORY OF PRESENT ILLNESS AND HOSPITAL COURSE: This is a 61-year-old man, past medical history as outlined in the history of present illness on the day of admission presented to the hospital with lower extremity tingling as well as a sensation as if he was going to "pass out" after standing up. The sensation lasted until the ambulance arrived. The patient notes that he had this sensation many times more frequently over the last couple of days, but has been chronic in nature. Since admission to the hospital, his symptoms have completely resolved. He has ambulated around the hospital, to and forth the bathroom without any chest pain, shortness of breath, nausea, vomiting, or recurrent paresthesias or presyncopal events. He has not had any known sick contacts and this seemed to be a more severe exacerbation of his chronic symptoms. The patient notes he has been evaluated in the past and per the patient's report these symptoms have been thought to be secondary to anxiety or panic for which he was prescribed alprazolam. On the day of discharge, the patient had no complaints. He does not want to establish with a primary care provider now, although he was encouraged to establish with a primary care provider at this time. He was advised to follow up with Dr. Cadet. The patient was admitted to the hospital because these symptoms were similar to those for which he presented to the hospital when he was found to have a STEMI in September 2016. FOLLOW UP: At follow up please; ensure the patient establishes with primary care provider. REASONS TO RETURN TO THE HOSPITAL: Including, but not limited to recurrent or worsening symptoms including chest pain, shortness of breath, nausea, vomiting, lightheadedness, loss of consciousness, near loss of consciousness, recurrent tingling, bleeding from any source, inability to obtain or tolerate medications discussed with the patient. TIME SPENT: Greater than 45 minutes were spent on the discharge of this patient , greater than half was spent [id number] with the patient. [id number]/[facility] #: [id number] MARGARET
== END 2017-08-10 10:47 | disposition home or self-care (01) ==
LOC: ED 11:45 → MEDTELE 17:03
PROVIDERS: ADMIT Internal Medicine; ATTEND Internal Medicine
DX: R55 Syncope and collapse (principal); I25.2 Old myocardial infarction; F41.9 Anxiety disorder, unspecified; R07.9 Chest pain, unspecified; R53.1 Weakness; Z79.82 Long term (current) use of aspirin
CPT/HCPCS: 36415; 71045; 80053; 82550; 83605; 84484; 85025; 93005; 99283; A9270-GY; G0378

== ENCOUNTER 2017-08-18 23:49 | Emergency (ER) | payer OTHER ==
[2017-08-19] MEDS ORDERED: NS 0.9% 1000 ML* 1,000 ML IV ONE (00:40)
[2017-08-19 00:59] LABS: ABS Basophils 0 10^3/ul (0-0.2); ABS Eosinophils 0.1 10^3/ul (0-0.6); ABS Lymphocytes 1.7 10^3/ul (1.0-4.8); ABS Monocytes 0.9 10^3/ul (0-0.8); ABS Nucleated RBC 0 10^3/ul; Eosinophil % 1.7 % (0-6); Hematocrit 45 % (42-52); Hemoglobin 15.3 g/dl (14.0-18.0); Lymphocyte % 19.7 % (25-47); Mean Corpuscular HGB Conc 34 g/dl (31-36); Mean Corpuscular Hemoglobin 30 pg (27-31); Mean Corpuscular Volume 88 fL (80-94); Mean Platelet Volume 8 um3 (7.4-10.4); Nucleated Red Blood Cells % 0; Platelet Count 237 10^3/ul (150-450); Red Blood Count 5.06 10^6/ul (4.0-5.4); Red Cell Distribution Width 14 % (10.5-15); White Blood Count 8.7 10^3/ul (3.5-10.8)
[2017-08-19 01:15] LABS: EGFR Non-African American 53.3 (>60)
[2017-08-19 03:13] VITALS: BP 132/71
--- NOTE | 2017-08-19 03:42 | ED ---
Connor Ness Julia, scribed for Jorge Kasper MD on 08/19/17 at 0220 . Neurological HPI - HPI Summary HPI Summary: This patient is a 61 year old M presenting to [facility] accompanied by with a chief complaint of significantly worsening of episodic neurological symptoms for the past couple years. Patient reports jaw lock, facial tightness, extremity twitching, and buzzing and zapping from the base of his neck into head. Patient denies pain numbness/weakness in face, facial drooping, no visual changes , ear changes, sore throat, and sinus congestion. Pt had negative MRI on 02/26/16. Pt has 3 herniated discs at C3, C4, and C5. - History of Current Complaint Chief Complaint: EDNeurologicalDeficit Stated Complaint: MUSCLE SPASMS Time Seen by Provider: 08/19/17 00:04 Hx Obtained From: Patient Onset/Duration: Worse Since - today, Other - years Timing: Intermittent Episodes Lasting: - seconds Neurological Deficit Location: Facial, RUE, LUE, RLE, LLE Pain Intensity: 0 Pain Scale Used: 0-10 Numeric Character: Other: Frequency: Episodes Lasting ____ (in Mins/Days/Weeks/Years) - seconds - Additional Pertinent History Primary Care Physician: ROZ - Allergy/Home Medications Allergies/Adverse Reactions: Allergies Allergy/AdvReac Type Severity Reaction Status Date / Time Tetracycline Allergy Mild Itching Verified 01/24/17 02:13 Belladonna Allergy Unknown Unknown Verified 01/24/17 02:13 Reaction Details Iodinated Diagnostic Agents Allergy Agitation Verified 01/24/17 02:13 ct dye Allergy aggitation Uncoded 01/24/17 02:13 PMH/Surg Hx/FS Hx/Imm Hx Endocrine/Hematology History: Denies: Hx Diabetes Cardiovascular History: 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, midsternal, upper ribs, Hx Coronary Artery Disease, Hx Myocardial Infarction Denies: Hx Congestive Heart Failure, Hx Hypercholesterolemia, Hx Hypertension , Hx Pacemaker/ICD, Hx Valvular Heart Disease Respiratory History: Denies: Hx Asthma, Hx Chronic Obstructive Pulmonary Disease (COPD) GI History: Reports: Hx Gastroesophageal Reflux Disease History: Denies: Hx Dialysis, Hx Renal Disease Musculoskeletal History: Reports: Other Musculoskeletal History - Herniated discs in the C-spine Sensory History: Reports: Hx Contacts or Glasses Denies: Hx Hearing Aid Opthamlomology History: Reports: Hx Contacts or Glasses Psychiatric History: Denies: Hx Panic Disorder - Surgical History Surgery Procedure, Year, and Place: cardiac stent 2006 [employer] CLEARED FOR 1.5 OR 3T SGF 700G/CM PER [place] IN NORMAL OPERATING SCAN MODE. CARDIAC STENT SEPTEMBER 23, 2016- [facility]- [facility] STENT - Immunization History Date of Tetanus Vaccine: unk Date of Influenza Vaccine: none Infectious Disease History: Yes Infectious Disease History: Denies: Traveled Outside the [place] in Last 30 Days - Family History Known Family History: Positive: Blood Disorder Negative: Cardiac Disease, Hypertension - Social History Alcohol Use: None Hx Substance Use: No Substance Use Type: Reports: None Hx Tobacco Use: No Smoking Status (MU): Never Smoked Tobacco Review of Systems Negative: Photophobia, Blurred Vision Negative: Sore Throat, Ear Ache, Nasal Discharge Neurological: Other - jaw lock, facial tightness, extremity twitching, and buzzing and zapping from the base of his neck into head. Negative: Weakness - facial, Numbness - facial All Other Systems Reviewed And Are Negative: Yes Physical Exam - Summary Physical Exam Summary: Appearance: Well appearing, no pain distress Skin: warm, dry, reflects adequate perfusion Head/face: no pain with percussion of sinuses , no temporal artery tenderness Eyes: EOMI, LESIA ENT: normal Neck: supple, non-tender Respiratory: CTA, breath sounds present Cardiovascular: RRR, pulses symmetrical Abdomen: non-tender, soft Bowel: present Musculoskeletal: normal, strength/ROM intact Neuro: normal, sensory motor intact, A&Ox3, cranial nerves intact Triage Information Reviewed: Yes Vital Signs On Initial Exam: Initial Vitals Temp Pulse Resp BP Pulse Ox 98.1 F 93 16 139/90 97 08/18/17 23:55 08/18/17 23:55 08/18/17 23:55 08/18/17 23:55 08/18/17 23:55 Vital Signs Reviewed: Yes Diagnostics - Vital Signs Vital Signs Temp Pulse Resp BP Pulse Ox 08/19/17 01:00 84 19 137/77 96 08/19/17 00:30 91 16 145/89 97 08/19/17 00:04 88 94 08/19/17 00:01 90 146/84 97 08/19/17 00:00 92 97 08/18/17 23:58 96 139/90 98 08/18/17 23:57 99 97 08/18/17 23:55 98.1 F 93 16 139/90 97 - Laboratory Lab Results: Lab Results 08/19/17 08/19/17 Range/Units 00:50 00:50 WBC 8.7 (3.5-10.8) 10^3/ul RBC 5.06 (4.0-5.4) 10^6/ul Hgb 15.3 (14.0-18.0) g/dl Hct 45 (42-52) % MCV 88 (80-94) fL MCH 30 (27-31) pg MCHC 34 (31-36) g/dl RDW 14 (10.5-15) % Plt Count 237 (150-450) 10^3/ul MPV 8 (7.4-10.4) um3 Neut % (Auto) 68.3 (38-83) % Lymph % (Auto) 19.7 L (25-47) % Payne % (Auto) 9.8 H (1-9) % Eos % (Auto) 1.7 (0-6) % Baso % (Auto) 0.5 (0-2) % Absolute Neuts (auto) 6.0 (1.5-7.7) 10^3/ul Absolute Lymphs (auto) 1.7 (1.0-4.8) 10^3/ul Absolute Monos (auto) 0.9 H (0-0.8) 10^3/ul Absolute Eos (auto) 0.1 (0-0.6) 10^3/ul Absolute Basos (auto) 0 (0-0.2) 10^3/ul Absolute Nucleated RBC 0 10^3/ul Nucleated RBC % 0 Sodium 136 (133-145) mmol/L Potassium 4.0 (3.5-5.0) mmol/L Chloride 104 (101-111) mmol/L Carbon Dioxide 23 (22-32) mmol/L Anion Gap 9 (2-11) mmol/L BUN 24 (6-24) mg/dL Creatinine 1.36 H (0.67-1.17) mg/dL Est GFR ( Amer) 68.5 (>60) Est GFR (Non-Af Amer) 53.3 (>60) BUN/Creatinine Ratio 17.6 (8-20) Glucose 109 H (70-100) mg/dL Calcium 9.0 (8.6-10.3) mg/dL Phosphorus 3.5 (2.5-5.0) mg/dL Magnesium 2.1 (1.9-2.7) mg/dL Result Diagrams: 08/19/17 00:50 08/19/17 00:50 Lab Statement: Any lab studies that have been ordered have been reviewed, and results considered in the medical decision making process. Re-Evaluation - Re-Evaluation 1 Re-Evaluation Time: 02:22 Change: Improved - with IV fluids Course/Dx - Course Course Of Treatment: Pt presents with significantly worsening of episodic neurological symptoms for the past couple years. Patient reports jaw lock, facial tightness, extremity twitching, and buzzing and zapping from the base of his neck into head. P Pt had negative MRI on 02/26/16. Pt has 3 herniated discs at C3, C4, and C5. Lab results were unremarkable. Pt given IV fluids, and reports feeling better. Cr elevated slightly over baseline -- dehydration may be causing myoclonic jerking. Pt is "very sensitive to multiple medications" and so we have avoided over medication. He got great relief from IVF alone. - Differential Dx Differential Diagnoses Neuro: Positive: Drug Toxicity, Headache, Hypovolemia, Labyrinthitis, Medication Reaction, Other - myoclonus, MS - Diagnoses Provider Diagnoses: Dehydration, Myoclonic jerking Discharge - Discharge Plan Condition: Good Disposition: HOME Patient Education Materials: Dehydration (ED) Referrals: [facility] PHYSICIAN REFERRAL [Outside] Additional Instructions: Drink plenty of fluids, call to make appt with a primary care doctor. Return if worse, new symptoms or other concerns. Doctor will need to check your blood pressure, kidney function, electrolytes and on your neurologic symptoms. The documentation as recorded by the Connor marroquin Julia accurately reflects the service I personally performed and the decisions made by me, Jorge Kasper MD.
== END 2017-08-19 02:45 | disposition home or self-care (01) ==
LOC: ED 23:49
DX: E86.0 Dehydration (principal); G25.3 Myoclonus
CPT/HCPCS: 36415; 80048; 83735; 84100; 85025; 99283

== ENCOUNTER 2018-07-10 13:55 | Emergency (ER) | payer OTHER ==
[2018-07-10] MEDS ORDERED: Aspirin 81 mg CHEW TAB* 81 MG TAB.CHEW PO ONE (14:09)
--- NOTE | 2018-07-10 14:11 | ED ---
HPI Chest Pain - HPI Summary HPI Summary: 62 year old M presenting to [facility] accompanied by complains of chest pain described as burning located in the mid-sternal and epigastric areas radiating to the left chest since one month ago, worse since today. The patient rates the pain 3/10 in severity. Symptoms aggravated by walking and lifting heavy objects. Symptoms alleviated by nothing. Patient reports racing heart, especially with exertion. Patient additionally complains of shortness of breath since yesterday. Upon evaluation though, patient is not currently short of breath or having chest discomfort, only epigastric discomfort. Patient says the chest pain "feels like heart burn." He states it feels nothing like his STEMI in 09/2016. Patient has hx GERD. He was taking omeprazole, but stopped 2 days ago because he ran out of his prescription. He states that omeprazole slows down his heart. Patient sees Vanessa Gonzalez LAW EXAMINER. Patient has hx hypokalemia with no specific diagnosis. Patient also has hx anterior wall STEMI in September 2016 and was seen by Dr. Steele, cardiology, after which he had stent placed in his proximal LAD. Pt had vfib arrest while on the cath table, and was defibrillated x 3, and returned with afib rhythm. Patient has two cardiac stents, first one placed 2006. Patient is not on blood thinners now. He has been in sinus rhythm when evaluated since the STEMI per pt. He stopped taking Brillinta on his own in January 2018 because he was getting short of breath. His equipment maintenance technician is Dr. Beck and he has an appointment scheduled with him on 07/12/18. Vital signs while in room: HR 103 bpm, BP 144/95 Home Medications Medication Instructions Recorded Confirmed Type Potassium Chlor TAB* [Klor Con ER 10 meq PO BID 11/12/16 07/10/18 History TAB 10 MEQ*] Aspirin 81 mg CHEW TAB* 81 mg PO DAILY 08/09/17 07/10/18 History Metoprolol Succinate XL TAB* 25 mg PO DAILY 08/09/17 07/10/18 History [Toprol XL TAB*] - History of Current Complaint Chief Complaint: EDChestPainROMI Time Seen by Provider: 07/10/18 14:05 Hx Obtained From: Patient, Medical Records - [facility] STEMI chart reviewed and ED visits since Onset/Duration: Started Weeks Ago - 4 weeks, Still Present, Worse Since - today Timing: Intermittent Initial Severity: Moderate Current Severity: Mild Pain Intensity: 3 Pain Scale Used: 0-10 Numeric Chest Pain Location: Mid Sternal - and epigastric Chest Pain Radiates: Yes Chest Pain Radiates To:: Epigastric, Other - left side of chest Character: Burning, Dyspnea at Exertion, Fast Aggravating Factor(s): Other: - walking and lifting heavy objects Alleviating Factor(s): Nothing Associated Signs and Symptoms: Positive: Chest Pain, Shortness of Breath, Palpitations, Abdominal Pain - epigastric pain, Other: - racing heart, shortness of breath - Risk Factors AMI/ACS Risk Factors: Myocardial Infarction - STEMI 09/2016 - Additional Pertinent History Primary Care Physician: ROZ - Allergy/Home Medications Allergies/Adverse Reactions: Allergies Allergy/AdvReac Type Severity Reaction Status Date / Time tetracycline Allergy Mild Itching Verified 07/10/18 15:49 belladonna alkaloids Allergy Unknown Verified 07/10/18 15:49 Reaction Details Iodinated Contrast- Oral and AdvReac Agitation Verified 07/10/18 15:49 IV Dye PMH/Surg Hx/FS Hx/Imm Hx Previously Healthy: No Endocrine/Hematology History: Reports: Other Endocrine/Hematological Disorders - hx elevated CK (undx'ed etiology) and hypokalemia (undx'd etiology) Denies: Hx Diabetes Cardiovascular History: 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, midsternal, upper ribs, Hx Cardiac Arrest - Vfib arrest on cath table for STEMI 09/2016, defibrillated x 3, then afib , Hx Coronary Artery Disease, Hx Myocardial Infarction Denies: Hx Congestive Heart Failure, Hx Hypercholesterolemia, Hx Hypertension , Hx Pacemaker/ICD, Hx Valvular Heart Disease Respiratory History: Denies: Hx Asthma, Hx Chronic Obstructive Pulmonary Disease (COPD) GI History: Reports: Hx Gastroesophageal Reflux Disease History: Denies: Hx Dialysis, Hx Renal Disease Musculoskeletal History: Reports: Other Musculoskeletal History - Herniated discs in the C-spine Sensory History: Reports: Hx Contacts or Glasses Denies: Hx Hearing Aid Opthamlomology History: Reports: Hx Contacts or Glasses Psychiatric History: Denies: Hx Panic Disorder - Surgical History Surgery Procedure, Year, and Place: cardiac stent 2006 [employer] CLEARED FOR 1.5 OR 3T SGF 700G/CM PER [employer] IN NORMAL OPERATING SCAN MODE. CARDIAC STENT SEPTEMBER 23, 2016- [facility]- [employer] [facility] STENT - Immunization History Date of Tetanus Vaccine: unk Date of Influenza Vaccine: none Infectious Disease History: No Infectious Disease History: Denies: Traveled Outside the [place] in Last 30 Days - Family History Known Family History: Positive: Blood Disorder Negative: Cardiac Disease, Hypertension - Social History Alcohol Use: None Hx Substance Use: No Substance Use Type: Reports: None Hx Tobacco Use: No Smoking Status (MU): Never Smoked Tobacco Review of Systems Constitutional: Negative Positive: Chest Pain, Other - racing heart Positive: Shortness Of Breath Positive: Abdominal Pain - epigastric burning Musculoskeletal: Negative Skin: Negative Neurological: Negative Psychological: Normal All Other Systems Reviewed And Are Negative: Yes Physical Exam - Summary Physical Exam Summary: Appearance: Well-appearing, minimal to moderat pain distress in chest, epigastrium and LUQ, well-nourished, tachycardic, SR on monitor Skin: Warm, color reflects adequate perfusion, dry Head: Normal Head/Face inspection, atraumatic Eyes: Conjunctiva clear ENT: Normal inspection Neck: Supple, no nodes, no JVD Respiratory: Lungs clear, normal breath sounds, no respiratory distress Cardio: tachy, No murmur, pulses normal, brisk capillary refill Abdomen: Soft, nontender, no masses, nondistended, no bruits, L,S nonpalp Bowel sounds: Present Musculoskeletal: Strength Intact/ROM intact, no calf tenderness, no edema. Psychological: Normal Neuro: Alert, muscle tone normal, no focal deficit Triage Information Reviewed: Yes Vital Signs On Initial Exam: Initial Vitals Temp Pulse Resp BP Pulse Ox 99.7 F 100 16 169/104 98 07/10/18 13:57 07/10/18 13:57 07/10/18 13:57 07/10/18 13:57 07/10/18 13:57 Vital Signs Reviewed: Yes Diagnostics - Vital Signs Vital Signs Temp Pulse Resp BP Pulse Ox 07/10/18 13:57 99.7 F 100 16 169/104 98 - Laboratory Result Diagrams: 07/10/18 14:19 07/10/18 14:19 Lab Statement: Any lab studies that have been ordered have been reviewed, and results considered in the medical decision making process. - Radiology CXR Radiology Interpretation Completed By: Radiologist Summary of Radiographic Findings: NO ACTIVE CARDIOPULMONARY DISEASE. ED physician has reviewed this report. - EKG 1406 Cardiac Rate: NL - 99 BPM EKG Rhythm: Sinus Rhythm ST Segment: Non-Specific Ectopy: None EKG Comparison: No Significant Change - 08/10/17 Summary of EKG Findings: NSR at 99 BPM. Nml AV/IV CT, nml QTc, and nml axis. Not a STEMI. No acute changes. No change compared with EKG from EKG on 08/10/17. Re-Evaluation - Re-Evaluation First Eval Re-Evaluation Time: 16:10 Change: Unchanged Comment: Patient still has burning in his chest and discomfort in the epigastrium. HR 86 BPM, BP 130/78. He is agreeable to a second troponin. He requests GI cocktail for his chest discomfort and would like a copy of his lab results. No ectopy on monitor and pt remains in sinus rhythm rate 90's to 100's. Second Eval Re-Evaluation Time: 17:33 Change: Improved Comment: He is now pain free. HR 96 BPM. He is a eating a sandwich. He requests a prescription for Carafate liquid which has helped his GERD. He is being cautious about omeprazole for his GERD because he believes it affects his heart rate and he has read about caution with PPI's and CAD. He will keep his appointment Dr. Beck on Wednesday07/12/18. Chest Pain Course/Dx - Course Course Of Treatment: 62 yo M with hx first cardiac stent placed in 2006 and STEMI in 09/2016 with [place] stent placed in his LAD at [facility] with vfib arrest while on cath table, defibbed x 3 and returned in afib, stopped Brillinta on his own , and hx GERD who ran out of omeprazole 2 days ago, hx hypokalemia (no known etiology) on oral replacement and hx chronic elevated CK (no known etiology), presents to ED by private car with his with several day hx of chest pain, racing heart rate (that is not irregular per pt) and burning epigastric and LUQ pain that does not feel like his STEMI, and HOBBS, with sxs worsened since running out of omeprazole. Pt has Dr. Beck as his equipment maintenance technician and has an appt with him on 07/12/18, but with worsening sxs did not feel he should wait for evaluation. Patient medications reviewed this visit. He is not on anticoagulants, only ASA 81mg qd. Allergies noted. High blood pressure noted. In ED course, patient given a "GI cocktail" at his request containing viscous lidocaine and Maalox with relief of his chest pain and epigastric burning, and given Aspirin 324 mg po upon arrival, despite hx GERD for his chest pain with hx STEMI. EKG showed SR 99, no acute changes and no change from EKG on 08/10/17 (has inverted T wave in III, but good R wave progression in ant leads. Minimal R wave in V1, but no change). First and second troponin tests 3 hrs apart were both 0. d dimer was normal. K+ was 4.4 on supplementation with hx hypokalemia. CK was 241 which was in range of the elevation he has had in the past. CXR showed no active cardiopulmonary disease. Pt was in sinus rhythm throughout, at times tachycardic to the 110's, with no ectopy noted on the monitor. Patient will be discharged home with instructions to have definite follow up with Dr. Beck on 07/12/18. Patient was given instructions to return to ED for new or worsening symptoms. Patient is agreeable to this plan. - Chest Pain Differential Diagnosis/HQI/PQRI: Acute DE, ACS, Angina, Chest Wall, GI Disease, Pulmonary Embolism - Diagnoses Provider Diagnoses: Chest pain, Tachycardia with hypertension, GERD (gastroesophageal reflux disease), History of ST elevation myocardial infarction (STEMI), Hx of cardiac arrest Discharge - Sign-Out/Discharge Documenting (check all that apply): Patient Departure - Discharge - Discharge Plan Condition: Stable Disposition: HOME Prescriptions: Sucralfate SUSP (NF) [Carafate SUSP (NF)] 10 ml PO BID #600 ml Patient Education Materials: Chest Pain (ED), Gastroesophageal Reflux Disease ( ED) Referrals: Vanessa Gonzalez [Primary Care Provider] - 2 Days Thi Cadet MD [Medical Doctor] - (keep your appt for 07/12/19 ) Additional Instructions: We have given you a copy of your labs and EKG and CXR. Your second troponin was zero, 3 hrs after the first. You were given a "GI cocktail" with viscous lidocaine and maalox, with complete relief of your symptoms. You were able to eat. Your heart rate ranged from the 70's to low 100's in the ER. We have prescribed carafate liquid for you, as this has helped you in the past. Follow up with Dr. Cadet on 07/12/18 as scheduled and with your primary care provider this week also. Return to the ER if you have any new or worsening symptoms. - Billing Disposition and Condition Condition: STABLE Disposition: Home - Attestation Statements Document Initiated by Telly: Yes Documenting Scribe: Deb Frances Provider For Whom Telly is Documenting (Include Credential): Krista Pulido MD Scribe Attestation: Deb eNss, scribed for Krista Pulido MD on 07/11/18 at 1503. Scribe Documentation Reviewed: Yes Provider Attestation: The documentation as recorded by the Deb marroquin accurately reflects the service I personally performed and the decisions made by , Krista Pulido MD Status of Scribe Document: Viewed
[2018-07-10 14:31] LABS: ABS Basophils 0.1 10^3/ul (0-0.2); ABS Eosinophils 0.2 10^3/ul (0-0.6); ABS Monocytes 0.7 10^3/ul (0-0.8); ABS Neutrophils 5.1 10^3/ul (1.5-7.7); ABS Nucleated RBC 0 10^3/ul; Eosinophil % 2.1 %; Hematocrit 47 % (42-52); Hemoglobin 15.9 g/dl (14.0-18.0); Lymphocyte % 25.2 %; Mean Corpuscular HGB Conc 34 g/dl (31-36); Mean Corpuscular Hemoglobin 30 pg (27-31); Mean Corpuscular Volume 88 fL (80-94); Mean Platelet Volume 7.7 fL (7.4-10.4); Nucleated Red Blood Cells % 0; Platelet Count 259 10^3/ul (150-450); Red Blood Count 5.35 10^6/ul (4.00-5.40); Red Cell Distribution Width 14 % (10.5-15)
[2018-07-10 14:41] LABS: INR 0.95 (0.77-1.02)
[2018-07-10 14:50] LABS: EGFR Non-African American 65.1 (>60)
[2018-07-10] MEDS ORDERED: Lidocaine 2% VISCOUS* 15 ML UDC PO ONE (16:22)
[2018-07-10] MEDS ORDERED: Al Hydrox/Mg Hydrox/Simet LIQ* 30 ML UDC PO ONE (16:23)
[2018-07-10 18:11] VITALS: BP 163/94
== END 2018-07-10 18:10 | disposition home or self-care (01) ==
LOC: ED 13:55
DX: R07.9 Chest pain, unspecified (principal); R00.0 Tachycardia, unspecified; I10 Essential (primary) hypertension; K21.9 Gastro-esophageal reflux disease without esophagitis; I25.2 Old myocardial infarction; Z86.74 Personal history of sudden cardiac arrest; E87.6 Hypokalemia
CPT/HCPCS: 36415; 71045; 80053; 82550; 82553; 83605; 83735; 83880; 84436; 84443; 84484; 85025; 85379; 85610; 85730; 93005; 99283; A9270-GY

== ENCOUNTER 2018-08-07 10:59 | Emergency (ER) | payer OTHER ==
--- NOTE | 2018-08-07 11:17 | ED ---
Abdominal Pain/Male - HPI Summary HPI Summary: A 62 y/o M presents to ED with c/o diffuse, intermittent pains onset yesterday. Patient says the pain is sharp and stabbing, and moves around, noting pain at the jaw, back and upper abd. After the sharp pain subsides, his muscles feel sore. At bedside, his upper abd pain is rated as 2 out of 10. Associated sx: nausea. Patient denies CP, SOB. He does not associate the onset of pains with eating anything in particular. Last seen [place] [facility] [place] - History of Current Complaint Chief Complaint: EDGeneral Stated Complaint: PAIN ALL OVER Time Seen by Provider: 08/07/18 11:11 Hx Obtained From: Patient Onset/Duration: Still Present Timing: Intermittent Severity Currently: Mild Pain Intensity: 2 Pain Scale Used: 0-10 Numeric Location: Discrete At: RUQ, Discrete At: LUQ Radiates: Yes Radiates to: Back Character: Sharp - stabbing Associated Signs And Symptoms: Positive: Back Pain, Nausea, Other - pos: jaw pain, myalgia. neg: SOB. Negative: Chest Pain - Allergies/Home Medications Allergies/Adverse Reactions: Allergies Allergy/AdvReac Type Severity Reaction Status Date / Time tetracycline Allergy Mild Itching Verified 07/10/18 15:49 belladonna alkaloids Allergy Unknown Verified 07/10/18 15:49 Reaction Details Iodinated Contrast- Oral and AdvReac Agitation Verified 07/10/18 15:49 IV Dye PMH/Surg Hx/FS Hx/Imm Hx Previously Healthy: No Endocrine/Hematology History: Reports: Other Endocrine/Hematological Disorders - hx elevated CK (undx'ed etiology) and hypokalemia (undx'd etiology) Denies: Hx Diabetes Cardiovascular History: 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, midsternal, upper ribs, Hx Cardiac Arrest - Vfib arrest on cath table for STEMI 09/2016, defibrillated x 3, then afib , Hx Coronary Artery Disease, Hx Myocardial Infarction Denies: Hx Congestive Heart Failure, Hx Hypercholesterolemia, Hx Hypertension , Hx Pacemaker/ICD, Hx Valvular Heart Disease Respiratory History: Denies: Hx Asthma, Hx Chronic Obstructive Pulmonary Disease (COPD) GI History: Reports: Hx Gastroesophageal Reflux Disease History: Denies: Hx Dialysis, Hx Renal Disease Musculoskeletal History: Reports: Other Musculoskeletal History - Herniated discs in the C-spine Sensory History: Reports: Hx Contacts or Glasses Denies: Hx Hearing Aid Opthamlomology History: Reports: Hx Contacts or Glasses Psychiatric History: Denies: Hx Panic Disorder - Surgical History Surgery Procedure, Year, and Place: cardiac stent 2006 [employer] CLEARED FOR 1.5 OR 3T SGF 700G/CM PER [employer] IN NORMAL OPERATING SCAN MODE. CARDIAC STENT SEPTEMBER 23, 2016- [facility] STENT - Immunization History Date of Tetanus Vaccine: unk Date of Influenza Vaccine: none Infectious Disease History: No Infectious Disease History: Denies: Traveled Outside the [place] in Last 30 Days - Family History Known Family History: Positive: Blood Disorder Negative: Cardiac Disease, Hypertension - Social History Occupation: Retired Lives: With Family Alcohol Use: None Hx Substance Use: No Substance Use Type: Reports: None Hx Tobacco Use: No Smoking Status (MU): Never Smoked Tobacco Review of Systems Negative: Chest Pain Negative: Shortness Of Breath Positive: Abdominal Pain, Nausea Musculoskeletal: Other - pos: jaw pain, back pain Positive: Myalgia All Other Systems Reviewed And Are Negative: Yes Physical Exam - Summary Physical Exam Summary: VITAL SIGNS: Reviewed. GENERAL: Patient is a well-developed and nourished male who is lying comfortable in the stretcher. Patient is not in any acute respiratory distress. HEAD AND FACE: Normocephalic and atraumatic. EYES: PERRLA, EOMI x 2, No injected conjunctiva. EARS: Hearing grossly intact. Ear canals and tympanic membranes are WNL. MOUTH: Oropharynx within normal limits. NECK: Supple, trachea is midline, no adenopathy, no JVD. CHEST: Symmetric, no tenderness at palpation LUNGS: Clear to auscultation bilaterally. No wheezing or crackles. CVS: RRR, S1 and S2 present, no murmurs or gallops appreciated. ABDOMEN: Soft, RUQ tenderness. No signs of distention. Positive bowel sounds. No rebound, no guarding, and no masses palpated. No abdominal bruit or pulsations. EXTREMITIES: FROM in all major joints, no edema, no cyanosis or clubbing. NEURO: Alert and oriented x 3. No acute neurological deficits. Speech is normal. SKIN: Dry and warm Triage Information Reviewed: Yes Vital Signs On Initial Exam: Initial Vitals Temp Pulse Resp BP Pulse Ox 99.3 F 85 19 149/96 98 01/13/19 11:05 08/07/18 11:05 08/07/18 11:05 08/07/18 11:05 08/07/18 11:05 Vital Signs Reviewed: Yes Diagnostics - Vital Signs Vital Signs Temp Pulse Resp BP Pulse Ox 08/07/18 11:05 99.3 F 85 19 149/96 98 - Laboratory Result Diagrams: 08/07/18 10:36 08/07/18 10:36 Lab Statement: Any lab studies that have been ordered have been reviewed, and results considered in the medical decision making process. - EKG 1133 Cardiac Rate: NL - 75 bpm EKG Rhythm: Sinus Rhythm ST Segment: Normal - no ST elevation EKG Comparison: No Significant Change - from EKG on 07/10/18 Re-Evaluation - Re-Evaluation 1 Re-Evaluation Time: 12:27 Change: Improved Comment: Discussing results with patient and plan to D/C. Pt is agreeable to this. Pt notes having seen a GI specialist yesterday. Abdominal Pain Fem Course/Dx - Course Assessment/Plan: A 62 y/o M presents to ED with c/o diffuse, intermittent pains onset yesterday. Patient says the pain is sharp and stabbing, and moves around, noting pain at the jaw, back and upper abd. After the sharp pain subsides, his muscles feel sore. At bedside, his upper abd pain is rated as 2 out of 10. Associated sx: nausea. Patient denies CP, SOB. He does not associate the onset of pains with eating anything in particular. Last seen [place] [facility] [place]. Blood work is without any significant abnormality, troponin 0.00 and EKG is normal sinus rhythm without any ST elevation. Therefore, no suspicion for an acute coronary syndrome. Pancho from ultrasound did a quick look for the gallbladder and he reports that the gallbladder is completely normal. The patient was given a GI cocktail and all his symptoms resolved. Urinalysis shows no UTI. After these medications the patients symptoms have resolved. The patient was observed for approximately 2 hours and the urine the symptoms never returned. Therefore, I did not perform an abdominal pelvic CT since the patient is asymptomatic. I will prescribe the patient Prilosec and the follow- up with the primary care physician. I discussed all the findings and test results with the patient. Patient was instructed to return to the emergency room immediately if any of the symptoms return or worsens. Plan of care was discussed with the patient and understands and agrees. All questions were answered at patient satisfaction. There were no further complaints or concerns. Lung exam before discharge: CTA B/L. Good air exchange. No wheezing or crackles heard. CVS: S1 and S2 present. No murmurs appreciated. Patient is alert and oriented x 3. Patient is hemodynamically stable. Patient will be discharged home with follow up PCP in the next 2-3 days. - Diagnoses Differential Diagnosis/HQI/PQRI: AMI, Bowel Obstruction, Constipation, Pancreatitis, Urinary Tract Infection Provider Diagnoses: Epigastric pain Discharge - Sign-Out/Discharge Documenting (check all that apply): Patient Departure - DC - Discharge Plan Condition: Stable Disposition: HOME Patient Education Materials: Epigastric Pain (ED) Referrals: Vanessa Gonzalez [Primary Care Provider] - 3 Days Additional Instructions: Follow up with your primary care provider in 3 days. RETURN TO THE ED FOR ANY WORSENING OR NEW SYMPTOMS. - Billing Disposition and Condition Condition: STABLE Disposition: Home - Attestation Statements Document Initiated by Telly: Yes Documenting Scribe: Alona Ngo Provider For Whom Telly is Documenting (Include Credential): Dr. Champ Day MD Scribe Attestation: Alona Ness scribed for Dr. Champ Day MD on 08/08/18 at 1717. Scribe Documentation Reviewed: Yes Provider Attestation: The documentation as recorded by the Alona marroquin accurately reflects the service I personally performed and the decisions made by , Dr. Champ Day MD Status of Scribe Document: Viewed
--- OUTSIDE RECORDS SUMMARY | 2018-08-07 11:32 | XMS REPORT | Continuity of Care Document ---
:1955 External Reference #:[id number] Author Name Milka Nguyen Care Team Providers Name Role Phone Vanessa Gonzalez N.P. Primary Care Physician Unavailable Payers Type Date Identification Numbers Payment Provider Subscriber Policy Number: [id number] [facility] Fito Flores PayID: [id number] [address] [place] [address] Effective: 2014 Policy Number: [id number] Of [facility] Fito Flores Expires: 2015 Group Number: [id number] [address] [address] PayID: [id number] [place] [address] Advance Directives Description No Information Available Problems Date Description Provider Status Onset: 08/17/2011 Coronary arteriosclerosis Donn Mayorga M.D. Onset: 08/17/2011 Chest pain Donn Mayorga M.D. Onset: 08/17/2011 Patient post percutaneous Donn Mayorga transluminal coronary angioplasty M.Alissa Onset: 08/17/2011 Hyperlipidemia Donn Mayorga M.D. Onset: 08/17/2011 Electrocardiogram abnormal Donn Mayorga M.D. Onset: 03/18/2012 Paroxysmal ventricular tachycardia Donn Mayorga M.D. Onset: 03/18/2012 Palpitations Donn Mayorga M.D. Onset: 05/04/2012 Premature beats Donn Mayorga M.D. 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 Active myelopathy Onset: 01/15/2015 Obstructive sleep apnea of adult Ai Mayers DNP, RN, Active [facility] Family History Date Family Member(s) Problem(s) Comments General non contributory Father Internal bleeding ;alive in his 80's Mother Diabetes Type II Siblings 4 Siblings sister w/DM ; all others alright Social History Type Date Description Comments Sex Unknown Marital Status Lives With Occupation Disabled Tobacco Use Start: Unknown End: Former Cigarette Smoker Briefly Unknown ETOH Use Denies alcohol use Recreational Drug Use Never Used Drugs Tobacco Use Start: Unknown Patient has never smoked Smoking Status Reviewed: 07/12/18 Patient has never smoked Exercise Type/Frequency Does not exercise Allergies, Adverse Reactions, Alerts Date Description Reaction Status Severity Comments 04/01/2007 Tetracycline Active rash 12/01/2010 Belladonna Active "overdose reaction" 10/08/2016 Contrast Dye Active 10/08/2017 Statins Active Medications Medication Date Status Form Strength Qnty SIG Indications Ordering Provider Ranitidine HCL 06/14 Active Tablets 150mg 1 tablet po daily ( took Vanessa, 1 tablet po N.P. esphogeal spasm ) Klor-Con 10 08/14 Active Tablets ER 10Meq 360ta 2 tabs once Qu bs a day as S. needed ( Helio last taken , Feliciano 07/11/18 1 tablet ) Tylenol Extra 08/09 Active Tablets 500mg. 100ta prn Qutaybeh /2007 bs Lamont Cadet M.D. Asa Active 81mg 30uni 1 po qd ts Cpap Active Device at hs (patient has not used consistently in past month 02/05/17) Toprol XL Active Tablets ER 25mg 1 by mouth Qutayb 24HR qpm at 5pm Lamont Cadet M.D. Meclizine HCL Active Tablets 25mg take 1 tablet by mouth three times a day if needed for dizziness Carafate Active Suspension 1GM/10ML 10ml po Ashok, /0000 twice daily Krista ( Has not MD Ray taken picked up 07/12/18) Coenzyme Q-10 12/29 Hx Capsules 200mg 1 by mouth E78.5 daily S. - (01/14/17) Pt Magydah 10/08 has not , M.D. /2017 started yet Crestor 11/24 Hx Tablets 5mg 30tab one po Tiw, s Mon, Wed, S. - Fri ([facility] , M.DAni /201702/19/17) Toprol XL 10/02 Hx Tablets ER 50mg 30tab 1/2 tablet 24HR s by mouth S. - [facility] , Feliciano /2016[facility]13/[facility] at [facility]) Brilinta 10/02 Hx Tablets 90mg 180ta 1 tab by yb bs mouth twice S. - a [facility] MFredis Atorvastatin 10/02 Hx Tablets 40mg 90tab 1 by mouth taybeh s every day S. - 11/10/16 [facility] Feliciano Clarithromycin 09/04 Hx Tablets 500mg 28tab 1 by mouth s twice a day Ordering - for 14 days Provider 11/26 Crestor 12/12 Hx Tablets 5mg 30tab 1 po qd yb s S. - Helio 03/27 , Feliciano Co-Enzyme Q10 07/17 Hx Capsules 150 qd Qutayb S. - haydah 09/30 , Feliciano /2010 Vitamin B 07/17 Hx Tablets 1 PO qd ( Qutaybeh last taken 3 S. - day ago) Helio 06/27 , Feliciano /2016 Nitrostat 09/12 Hx Tablets Sub 0.4mg 25tab One SL Q5min Qutayb s Up To 3 S. - Doses prn Helio 08/11 Feliciano /2013 Xanax 04/01 Hx Tablets 0.25mg 30tab 1 Tab PO prn [facility] /2016 Tums 04/01 Hx Chewtabs prn [facility]b S. [facility] , M.D. /2011 Plavix 04/01 Hx Tablets 75mg 90tab 1 PO qd [facility]b s . [facility] 03[facility] , M.D. /2009 Toprol XL 04/01 Hx Tablets ER 25mg 90tab 1 PO qd Qutayb 24HR s . [facility] 10[facility] , M.DAni /2016 Altace 04/01 Hx Capsules 5mg 90cap 1 PO qd [facility]b s . [facility] , M.D. /2006 Lipitor 04/01 Hx Tablets 80mg 90tab 1 PO QHS [facility]b s . [facility] , M.DAni /2006 Aspirin 04/01 Hx Chewtabs 81mg 1 PO qd [facility]b S. [facility] 06[facility]05 , M.D. /2007 Norvasc 04/01 Hx Tablets 2.5mg 30tab 1 PO qd Qutayb s . [facility] , M.D. /2006 Celebrex 04/01 Hx Capsules 200mg 30cap 1 PO qd [facility] s . [facility] , M.D. /2006 Advil 04/01 Hx Capsules 200mg decreasing dose down to S. - 600 mg [facility]d [facility] , M.D. /2007 Pepcid 04/01 Hx [facility]b S. [facility] , M.DAni /2017 Zocor 04/01 Hx Tablets 20mg 30tab one qhs Qutayb s . [facility] 04/29 , M.DAni /2006 Vitamin D 00/ Hx Capsules [id number] 8caps po q week Unknown /0000 for 8 weeks - 12/01 Vit D 00/00 Hx one po q Unknown /0000 week - 12/01 Carafate Hx 1 tablet prn Unknown - 10/01 Xanax Hx Tablets 0.5mg by mouth Unknown once a day - as needed 03/21 Amiodarone HCL Hx Tablets 200mg 90tab 1 by mouth Qutaybeh s every day SAni - Maghakimberley 01/13 Feliciano Milk Of Hx Suspension 400mg/5ML 30 Unknown Magnesia milliliters - by mouth 05/16 every day at bedtime as needed Omeprazole Hx Omeprazole Unknown DR 40 mg - daily by 07/11 mouth. ( out 3 days) Medications Administered in Office Medication Date Status Form Strength Qnty SIG Indications Ordering Provider Technetium TC Administered Injection Ismael Miguel 99M 017 DO Jeremy Tetrofosmin, FACC Per Unit Dose Up To 40 Millicuries Technetium TC Administered Injection Jaime Maxwell 99M 014 Feliciano Bolivar Tetrofosmin, Per Unit Dose Up To 40 Millicuries Immunizations Description No Information Available Vital Signs Date Vital Result Comment 07/12/2018 9:48am Height 70 inches 5'10" Weight 235.00 lb with shoes Heart Rate 90 /min BP Systolic Sitting 140 mmHg Rue lg cuff BP Diastolic Sitting 90 mmHg Rue lg cuff BP Systolic Standing 140 mmHg Rue lg cuff BP Diastolic Standing 92 mmHg Rue lg cuff Respiratory Rate 17 /min BMI (Body Mass Index) 33.7 kg/m2 03/22/2018 8:53am Height 79 inches 6'7" Weight 236.50 lb Heart Rate 84 /min BP Systolic 150 mmHg left arm BP Diastolic 86 mmHg left arm BMI (Body Mass Index) 26.6 kg/m2 Ejection Fraction 50-55% 10/08/2017 8:51am Weight 238.00 lb with shoes on Heart Rate 85 /min BP Systolic Sitting 140 mmHg lue BP Diastolic Sitting 80 mmHg lue Ejection Fraction 50-55% 06/02/17 06/28/2017 9:22am Weight 229.75 lb with shoes Heart Rate 82 /min BP Systolic Sitting 120 mmHg Lue lg cuff BP Diastolic Sitting 70 mmHg Lue lg cuff Respiratory Rate 17 /min Ejection Fraction 50-55% date 06/02/17 ECHO 05/17/2017 1:58pm Height 71.25 inches 5'11.25" Weight 227.75 lb with shoes Heart Rate 80 /min BP Systolic Sitting 144 mmHg LA lrg cuff BP Diastolic Sitting 84 mmHg LA lrg cuff BMI (Body Mass Index) 31.5 kg/m2 02/05/2017 8:13am Height 71.25 inches 5'11.25" Weight 223.00 lb with shoes Heart Rate 90 /min BP Systolic Sitting 128 mmHg Lue reg cuff BP Diastolic Sitting 78 mmHg Lue reg cuff BP Systolic Standing 124 mmHg Lue reg cuff BP Diastolic Standing 74 mmHg Lue reg cuff Respiratory Rate 18 /min BMI (Body Mass Index) 30.9 kg/m2 Ejection Fraction 50-55% 09/25/2016-echo 01/14/2017 3:51pm Height 71.25 inches 5'11.25" Weight 225.25 lb with shoes Heart Rate 74 /min BP Systolic Sitting 148 mmHg LA reg cuff BP Diastolic Sitting 92 mmHg LA reg cuff BMI (Body Mass Index) 31.2 kg/m2 Ejection Fraction 50% - 55% echo 09/25/16 12/29/2016 8:56am Height 71.25 inches 5'11.25" Weight 225.00 lb with shoes Heart Rate 80 /min BP Systolic Sitting 146 mmHg Lue reg cuff BP Diastolic Sitting 82 mmHg Lue reg cuff BP Systolic Standing 140 mmHg Lue reg cuff BP Diastolic Standing 76 mmHg Lue reg cuff Respiratory Rate 18 /min BMI (Body Mass Index) 31.2 kg/m2 Ejection Fraction No EF 10/14/2016-echo 11/24/2016 3:08pm Height 71.25 inches 5'11.25" Weight 225.00 lb w/shoes Heart Rate 70 /min BP Systolic Sitting 142 mmHg LA reg cuff BP Diastolic Sitting 88 mmHg LA reg cuff BMI (Body Mass Index) 31.2 kg/m2 Ejection Fraction 50-55% Echo 09/25/16 10/27/2016 3:51pm Height 71.25 inches 5'11.25" Weight 225.75 lb w/shoes Heart Rate 80 /min BP Systolic Sitting 138 mmHg LA lg cuff BP Diastolic Sitting 92 mmHg LA lg cuff BMI (Body Mass Index) 31.3 kg/m2 Ejection Fraction 50-55% Echo 09/25/16 10/08/2016 11:29am Height 71.25 inches 5'11.25" Weight 225.00 lb with shoes Heart Rate 72 /min BP Systolic Sitting 138 mmHg Rue lrg cuff BP Diastolic Sitting 80 mmHg Rue lrg cuff BP Systolic Standing 122 mmHg Rue lrg cuff BP Diastolic Standing 78 mmHg Rue lrg cuff Respiratory Rate 16 /min BMI (Body Mass Index) 31.2 kg/m2 Ejection Fraction 50-55% 09/25/2016-echo 06/09/2016 4:04pm Height 71.25 inches 5'11.25" Weight 224.00 lb Heart Rate 88 /min BP Systolic Sitting 148 mmHg LA lrg cuff BP Diastolic Sitting 96 mmHg LA lrg cuff BMI (Body Mass Index) 31.0 kg/m2 Ejection Fraction 55% stress echo 10/10/15 11/28/2015 10:45am Height 71.25 inches 5'11.25" Weight 225.75 lb with shoes Heart Rate 84 /min BP Systolic 128 mmHg LA lrg cuff BP Diastolic 98 mmHg LA lrg cuff BMI (Body Mass Index) 31.3 kg/m2 Ejection Fraction 55% 10/10/15 08/20/2015 7:59am Height 71.25 inches 5'11.25" Weight 226.00 lb w/ sneakers Heart Rate 86 /min reg BP Systolic Sitting 122 mmHg Rue, reg cuff BP Diastolic Sitting 86 mmHg Rue, reg cuff BP Systolic Standing 118 mmHg Rue BP Diastolic Standing 86 mmHg Rue Respiratory Rate 18 /min BMI (Body Mass Index) 31.3 kg/m2 Ejection Fraction 55-60% as of 03/18/15 echo 05/21/2015 8:52am Heart Rate 90 /min BP Systolic Sitting 126 mmHg BP Diastolic Sitting 68 mmHg Respiratory Rate 20 /min O2 % BldC Oximetry 97 % 04/29/2015 9:57am Height 70 inches 5'10" Weight 235.00 lb w/shoes Heart Rate 84 /min BP Systolic Sitting 126 mmHg LA reg cuff BP Diastolic Sitting 84 mmHg LA reg cuff BMI (Body Mass Index) 33.7 kg/m2 Ejection Fraction 55-60 echo 03/18/15 03/19/2015 9:16am Heart Rate 93 /min BP Systolic Sitting 148 mmHg BP Diastolic Sitting 86 mmHg Respiratory Rate 22 /min O2 % BldC Oximetry 92 % 02/26/2015 8:50am Height 70 inches 5'10" Weight 229.75 lb Heart Rate 88 /min BP Systolic Sitting 150 mmHg LA, reg BP Diastolic Sitting 88 mmHg LA, reg BMI (Body Mass Index) 33.0 kg/m2 Ejection Fraction 59% 06/25/14 Nem 01/15/2015 9:57am Heart Rate 73 /min BP Systolic Sitting 138 mmHg BP Diastolic Sitting 76 mmHg Respiratory Rate 20 /min O2 % BldC Oximetry 97 % 11/08/2014 9:20am Height 70 inches 5'10" Weight 231.00 lb Heart Rate 92 /min BP Systolic Sitting 130 mmHg left arm, reg cuff BP Diastolic Sitting 84 mmHg left arm, reg cuff BMI (Body Mass Index) 33.1 kg/m2 11/07/2014 10:31am Height 70 inches 5'10" Weight 232.00 lb Heart Rate 76 /min BP Systolic Sitting 122 mmHg BP Diastolic Sitting 80 mmHg Pain Level 1 neck BMI (Body Mass Index) 33.3 kg/m2 11/05/2014 10:18am Height 70 inches 5'10" Weight 233.25 lb Heart Rate 83 /min BP Systolic Sitting 144 mmHg BP Diastolic Sitting 82 mmHg Respiratory Rate 20 /min O2 % BldC Oximetry 98 % BMI (Body Mass Index) 33.5 kg/m2 Neck Circumference in inches 16.5 09/28/2014 9:24am Height 70 inches 5'10" Weight 227.50 lb Heart Rate 100 /min BP Systolic Sitting 148 mmHg LA, large BP Diastolic Sitting 84 mmHg LA, large BMI (Body Mass Index) 32.6 kg/m2 04/13/2014 9:08am Height 70 inches 5'10" Weight 229.00 lb w/shoes Heart Rate 80 /min BP Systolic Sitting 140 mmHg BP Diastolic Sitting 76 mmHg Respiratory Rate 15 /min BMI (Body Mass Index) 32.9 kg/m2 08/11/2013 8:57am Height 70 inches 5'10" Weight 225.00 lb Heart Rate 96 /min BP Systolic Sitting 148 mmHg BP Diastolic Sitting 86 mmHg Respiratory Rate 16 /min BMI (Body Mass Index) 32.3 kg/m2 12/02/2012 8:53am Height 70 inches 5'10" Weight 216.00 lb Heart Rate 104 /min BP Systolic Sitting 130 mmHg BP Diastolic Sitting 82 mmHg Respiratory Rate 20 /min BMI (Body Mass Index) 31.0 kg/m2 05/04/2012 8:45am Height 70 inches 5'10" Weight 213.50 lb Heart Rate 92 /min BP Systolic Sitting 118 mmHg BP Diastolic Sitting 94 mmHg BMI (Body Mass Index) 30.6 kg/m2 03/18/2012 10:19am Height 70 inches 5'10" Weight 214.00 lb Heart Rate 88 /min BP Systolic 130 mmHg BP Diastolic 88 mmHg BMI (Body Mass Index) 30.7 kg/m2 08/17/2011 10:54am Height 70 inches 5'10" Weight 214.00 lb Heart Rate 95 /min BP Systolic Sitting 138 mmHg BP Diastolic Sitting 82 mmHg BMI (Body Mass Index) 30.7 kg/m2 12/01/2010 10:47am Height 70 inches 5'10" Weight 208.00 lb Heart Rate 92 /min BP Systolic Sitting 128 mmHg BP Diastolic Sitting 86 mmHg BMI (Body Mass Index) 29.8 kg/m2 10/03/2010 11:47am Height 70 inches 5'10" Weight 204.00 lb Heart Rate 94 /min BP Systolic Sitting 160 mmHg L BP Diastolic Sitting 90 mmHg L BMI (Body Mass Index) 29.3 kg/m2 03/11/2010 9:28am Weight 196.25 lb Heart Rate 96 /min BP Systolic 126 mmHg BP Diastolic 70 mmHg 08/14/2009 9:13am Height 70 inches 5'10" Weight 200.00 lb Heart Rate 93 /min BP Systolic Sitting 120 mmHg BP Diastolic Sitting 85 mmHg BMI (Body Mass Index) 28.7 kg/m2 03/27/2009 9:21am Height 70 inches 5'10" Weight 200.00 lb Heart Rate 95 /min BP Systolic Sitting 140 mmHg BP Diastolic Sitting 84 mmHg BMI (Body Mass Index) 28.7 kg/m2 12/12/2008 10:45am Weight 195.00 lb Heart Rate 81 /min BP Systolic Sitting 164 mmHg BP Diastolic Sitting 92 mmHg Respiratory Rate 16 /min 07/17/2008 10:13am Height 71 inches 5'11" Weight 196.00 lb Heart Rate 88 /min BP Systolic Sitting 130 mmHg BP Diastolic Sitting 78 mmHg Respiratory Rate 16 /min BMI (Body Mass Index) 27.3 kg/m2 06/05/2008 11:24am Height 71 inches 5'11" Weight 189.00 lb Heart Rate 98 /min BP Systolic Sitting 140 mmHg BP Diastolic Sitting 70 mmHg Respiratory Rate 16 /min BMI (Body Mass Index) 26.4 kg/m2 12/28/2007 9:02am Height 71 inches 5'11" Weight 186.00 lb Heart Rate 87 /min BP Systolic Sitting 146 mmHg L BP Diastolic Sitting 80 mmHg L BMI (Body Mass Index) 25.9 kg/m2 08/09/2007 11:07am Height 71 inches 5'11" Weight 197.00 lb Heart Rate 93 /min BP Systolic Sitting 120 mmHg BP Diastolic Sitting 80 mmHg Respiratory Rate 16 /min BMI (Body Mass Index) 27.5 kg/m2 06/24/2007 2:20pm Height 71 inches 5'11" Weight 200.00 lb Heart Rate 72 /min BP Systolic Sitting 134 mmHg L BP Diastolic Sitting 90 mmHg L BMI (Body Mass Index) 27.9 kg/m2 06/09/2007 3:33pm Height 71 inches 5'11" Weight 200.00 lb Heart Rate 88 /min BP Systolic Sitting 160 mmHg L 134/90 R BP Diastolic Sitting 90 mmHg L 134/90 R BMI (Body Mass Index) 27.9 kg/m2 04/01/2007 1:13pm Height 71 inches 5'11" Weight 207.25 lb Heart Rate 85 /min BP Systolic Sitting 130 mmHg BP Diastolic Sitting 74 mmHg BP Systolic Standing 124 mmHg BP Diastolic Standing 76 mmHg BMI (Body Mass Index) 28.9 kg/m2 Results Test Date Facility Test Result H/L Range Note Lipid Panel - 05/14/2017 [facility] Creatine 225 U/L High 10- [address] [employer](CK) [place] [address] [phone] Comp Metabolic 05/14/2017 [facility] Potassium 5.0 mmol/L N 3.5-5.[address] [place] [address] [phone] Chloride 104 mmol/L N 101-111 Co2 Carbon Dioxide 28 mmol/L N 22-32 Glucose 92 mg/dL N 70-100 Blood Urea Nitrogen 24 mg/dL N 6-24 Creatinine 1.05 mg/dL N 0.67-1.17 BUN/Creatinine Ratio 22.9 High 8-20 Calcium 9.1 mg/dL N 8.6-10.3 Total Protein 6.9 g/dL N 6.4-8.9 Albumin 4.2 g/dL N 3.2-5.2 Globulin 2.7 g/dL N 2-4 Albumin/Globulin Ratio 1.6 N 1-3 Total Bilirubin 0.70 mg/dL N 0.2-1.0 Alkaline Phosphatase 75 U/L N 34-104 Alt 16 U/L N 7-52 Egfr Non- 71.8 N >60 Egfr 92.3 N >60 1 Sodium 137 mmol/L N 133-145 Anion Gap 5 mmol/L N 2-11 Ast 25 U/L N 13-39 Lipid Profile 05/14/2017 [facility] Triglycerides 96 mg/dL N 2 (Trig/Chol/HDL) [address] [place] [address] [phone] Cholesterol 188 mg/dL N 3 HDL Cholesterol 43.9 mg/dL N 4 LDL Cholesterol 125 mg/dL N 5 Laboratory test 05/14/2017 [facility] Magnesium 2.1 mg/dL N 1.9-2.7 finding [address] [place] [address] [phone] TSH (Thyroid Stim Horm) 2.70 mcIU/mL N 0.34-5.60 Lipid Profile 02/04/2017 [facility] Triglycerides 80 mg/dL N 6 (Trig/Chol/HDL) [address] [place] [address] [phone] Cholesterol 188 mg/dL N 7 HDL Cholesterol 45.8 mg/dL N 8 LDL Cholesterol 126 mg/dL N 9 Comp Metabolic Panel 02/04/2017 [facility] Sodium 137 mmol/L N 133-145 [address] [place] [address] [phone] Potassium 4.3 mmol/L N 3.5-5.0 Chloride 106 mmol/L N 101-111 Co2 Carbon Dioxide 26 mmol/L N 22-32 Anion Gap 5 mmol/L N 2-11 Glucose 96 mg/dL N 70-100 Blood Urea Nitrogen 15 mg/dL N 6-24 Creatinine 1.10 mg/dL N 0.67-1.17 BUN/Creatinine Ratio 13.6 N 8-20 Calcium 9.2 mg/dL N 8.6-10.3 Total Protein 6.9 g/dL N 6.4-8.9 Albumin 4.3 g/dL N 3.2-5.2 Globulin 2.6 g/dL N 2-4 Albumin/Globulin Ratio 1.7 N 1-3 Total Bilirubin 0.90 mg/dL N 0.2-1.0 Alkaline Phosphatase 75 U/L N 34-104 Alt 18 U/L N 7-52 Ast 27 U/L N 13-39 Egfr Non- 68.1 N >60 Egfr 87.5 N >60 10 Lipid Panel - 02/04/2017 [facility] Creatine 252 U/L High 10- 223 [address] [employer](CK) [place] [address] [phone] Laboratory test 12/25/2016 [facility] Alt 21 U/L N 7-52 [address] [place] [address] [phone] Ast 25 U/L N 13-39 Laboratory test 12/25/2016 [facility] Creatine 165 U/L N 10- 223 [address] [employer](CK) [place] [address] [phone] Comp Metabolic 12/25/2016 [facility] Sodium 137 N 133-[address] mmol/[place] [address] [phone] Potassium 4.7 mmol/L N 3.5-5.0 Chloride 103 mmol/L N 101-111 Co2 Carbon Dioxide 27 mmol/L N 22-32 Anion Gap 7 mmol/L N 2-11 Glucose 94 mg/dL N 70-100 Blood Urea Nitrogen 18 mg/dL N 6-24 Creatinine 1.20 mg/dL High 0.67-1.17 BUN/Creatinine Ratio 15.0 N 8-20 Calcium 9.3 mg/dL N 8.6-10.3 Total Protein 7.2 g/dL N 6.4-8.9 Albumin 4.4 g/dL N 3.2-5.2 Globulin 2.8 g/dL N 2-4 Albumin/Globulin Ratio 1.6 N 1-3 Total Bilirubin 0.70 mg/dL N 0.2-1.0 Alkaline Phosphatase 83 U/L N 34-104 Egfr Non- 61.6 N >60 Egfr 79.2 N >60 14 Lipid Profile 12/25/2016 [facility] Triglycerides 134 mg/dL N 15 (Trig/Chol/HDL) [address] [place] [address] [phone] Cholesterol 194 mg/dL N 16 HDL Cholesterol 41.6 mg/dL N 17 LDL Cholesterol 126 mg/dL N 18 Laboratory test 08/20/2015 [facility] Clotest SEE RESULT [address] [place] [address] [phone] CBC Auto Diff 08/11/2015 [facility] White Blood 6.9 10^3/uL N 3.5-[address] Count .8 [place] [address] [phone] Red Blood Count 4.83 10^6/uL N 4.0-5.4 Hemoglobin 14.6 g/dL N 14.0-18.0 Hematocrit 44 % N 42-52 Mean Corpuscular Volume 90 fL N 80-94 Mean Corpuscular Hemoglobin 30 pg N 27-31 Mean Corpuscular HGB Conc 34 g/dL N 31-36 Red Cell Distribution Width 14 % N 10.5-15 Platelet Count 215 10^3/uL N 150-450 Mean Platelet Volume 8 um3 N 7.4-10.4 Abs Neutrophils 3.5 10^3/uL N 1.5-7.7 Abs Lymphocytes 2.6 10^3/uL N 1.0-4.8 Abs Monocytes 0.6 10^3/uL N 0-0.8 Abs Eosinophils 0.2 10^3/uL N 0-0.6 Abs Basophils 0 10^3/uL N 0-0.2 Abs Nucleated RBC 0.01 10^3/uL N Granulocyte % 50.4 % N 38-83 Lymphocyte % 37.6 % N 25-47 Monocyte % 8.8 % N 1-9 Eosinophil % 2.6 % N 0-6 Basophil % 0.6 % N 0-2 Nucleated Red Blood Cells % 0.1 N Laboratory test 08/11/2015 [facility] Lactic Acid 0.9 mmol/L N 0.5-2.0 [address] [place] [address] [phone] Comp Metabolic 08/11/2015 [facility] Sodium 138 mmol/L N 133- [address] [place] [address] [phone] Potassium 3.6 mmol/L N 3.5-5.0 Chloride 106 mmol/L N 101-111 Co2 Carbon Dioxide 26 mmol/L N 22-32 Anion Gap 6 mmol/L N 2-11 Glucose 106 mg/dL High 70-100 Blood Urea Nitrogen 22 mg/dL N 6-24 Creatinine 1.07 mg/dL N 0.67-1.17 BUN/Creatinine Ratio 20.6 High 8-20 Calcium 8.8 mg/dL N 8.6-10.3 Total Protein 6.8 g/dL N 6.4-8.9 Albumin 4.1 g/dL N 3.2-5.2 Globulin 2.7 g/dL N 2-4 Albumin/Globulin Ratio 1.5 N 1-3 Total Bilirubin 0.40 mg/dL N 0.2-1.0 Alkaline Phosphatase 79 U/L N 34-104 Alt 18 U/L N 7-52 Ast 31 U/L N 13-39 Egfr Non- 70.7 N >60 Egfr 91.0 N >60 21 Laboratory test 08/11/2015 [facility] Troponin-I 0.00 ng/mL N <0.[address] (TnI) [place] [address] [phone] Laboratory test 08/11/2015 [facility] Magnesium 1.9 mg/dL N 1.9-2.[address] [place] [address] [phone] Troponin-I (TnI) 0.00 ng/mL N <0.03 23 Laboratory test 07/14/2015 [facility] Partial 29.7 seconds N 26.0-36.[address] [place] [address] PTT [phone] B-Type Natriuretic Peptide BNP 47 pg/mL N 24 Inr/Protime 07/14/2015 [facility] Inr 0.96 N 0.89-1.[address] [place] [address] [phone] CKMB 07/14/2015 [facility] CKMB ng/mL 3.1 ng/mL N 0.6-6.[address] [place] [address] [phone] Laboratory test 07/14/2015 [facility] Creatine 215 U/L N 10- 223 finding [facility] Kinase(CK) [place] [address] [phone] Troponin-I (TnI) 0.00 ng/mL N <0.03 25 Comp Metabolic Panel 07/14/2015 [facility] Sodium 137 mmol/L N 133-[address] [place] [address] [phone] Potassium 3.6 mmol/L N 3.5-5.0 Chloride 107 mmol/L N 101-111 Co2 Carbon Dioxide 25 mmol/L N 22-32 Anion Gap 5 mmol/L N 2-11 Glucose 107 mg/dL High 70-100 Blood Urea Nitrogen 17 mg/dL N 6-24 Creatinine 1.21 mg/dL High 0.67-1.17 BUN/Creatinine Ratio 14.0 N 8-20 Calcium 8.6 mg/dL N 8.6-10.3 Total Protein 6.8 g/dL N 6.4-8.9 Albumin 4.0 g/dL N 3.2-5.2 Globulin 2.8 g/dL N 2-4 Albumin/Globulin Ratio 1.4 N 1-3 Total Bilirubin 0.40 mg/dL N 0.2-1.0 Alkaline Phosphatase 83 U/L N 34-104 Alt 21 U/L N 7-52 Ast 34 U/L N 13-39 Egfr Non- 61.4 N >60 Egfr 78.9 N >60 26 Laboratory test 07/14/2015 [facility] Lactic Acid 0.7 mmol/L N 0.5-2.0 [address] [place] [address] [phone] CBC Auto Diff 07/14/2015 [facility] White Blood 6.6 10^3/uL N 3.5-10.[address] [place] [address] [phone] Red Blood Count 4.92 10^6/uL N 4.0-5.4 Hemoglobin 15.0 g/dL N 14.0-18.0 Hematocrit 44 % N 42-52 Mean Corpuscular Volume 90 fL N 80-94 Mean Corpuscular Hemoglobin 30 pg N 27-31 Mean Corpuscular HGB Conc 34 g/dL N 31-36 Red Cell Distribution Width 13 % N 10.5-15 Platelet Count 214 10^3/uL N 150-450 Mean Platelet Volume 8 um3 N 7.4-10.4 Abs Neutrophils 3.6 10^3/uL N 1.5-7.7 Abs Lymphocytes 2.2 10^3/uL N 1.0-4.8 Abs Monocytes 0.6 10^3/uL N 0-0.8 Abs Eosinophils 0.2 10^3/uL N 0-0.6 Abs Basophils 0.1 10^3/uL N 0-0.2 Abs Nucleated RBC 0 10^3/uL N Granulocyte % 54.5 % N 38-83 Lymphocyte % 33.1 % N 25-47 Monocyte % 9.0 % N 1-9 Eosinophil % 2.4 % N 0-6 Basophil % 1.0 % N 0-2 Nucleated Red Blood Cells % 0.1 N Basic Metabolic Panel 09/28/2014 [facility] Sodium 138 mmol/L N 133-145 [address] [place] [address] [phone] Potassium 4.6 mmol/L N 3.5-5.0 Chloride 104 mmol/L N 101-111 Co2 Carbon Dioxide 30 mmol/L N 22-32 Anion Gap 4 mmol/L N 2-11 Glucose 91 mg/dL N 70-100 Blood Urea Nitrogen 17 mg/dL N 6-24 Creatinine 1.24 mg/dL High 0.67-1.17 BUN/Creatinine Ratio 13.7 N 8-20 Calcium 9.4 mg/dL N 8.6-10.3 Egfr Non- 59.7 N >60 Egfr 76.7 N >60 28 Laboratory test 09/28/2014 [facility] Magnesium 2.1 mg/dL N 1.9-2.7 finding [address] [place] [address] [phone] Order 05/14/2014 [facility] Echocardiogram <pending> [address] [place] [address] [phone] Basic Metabolic 02/22/2012 [facility] Sodium 139 mmol/L 135- 145 Panel [address] [place] [address] [phone] Potassium 4.4 mmol/L 3.5-5.0 Chloride 106 mmol/L 101-111 Co2 (Carbon Dioxide) 28.0 mmol/L 22-32 Anion Gap 5.0 mmol/L 2-11 29 Glucose 106 mg/dL High 70-100 BUN 17 mg/dL 6-24 Creatinine 1.0 mg/dL 0.50-1.40 One Over Creatinine 1.00 BUN/Creatinine Ratio 17.0 8-20 Calcium 9.3 mg/dL 8.1-9.9 eGFR Non- 77.3 > 60 eGFR 99.4 > 60 30 Laboratory test 02/15/2012 [facility] TSH 1.84 MIU/ML 0.34- 5.[address] [place] [address] [phone] Magnesium 2.0 mg/dL 1.7-2.6 CBC Auto Diff 02/15/2012 [facility] White Blood 6.1 CUMM 4.8- 10.[address] [place] [address] [phone] Red Cell Count 4.75 CUMM 4.6-6.2 Hemoglobin 14.6 g/dL 14.0-18.0 Hematocrit 43 % 42-52 Mean Corpuscular Volume 90 um3 80-94 Mean Corpuscular Hemoglob 31 pg 27-31 Mean Corpuscular HGB Cone 34 g/dL 32-36 Redcell Distribution WDTH 14 % 10.5-15 Platelet Count 214 CUMM 150-450 Mean Platelet Volume 8.6 um3 7.4-10.4 Gran % 65.2 % 38-83 Lymph % 24.7 % 20-45 Mononuclear % 6.5 % 1-9 Eosinophil % 3.1 % 0-6 Basophil % 0.5 % 0-2 Abs Lymphs 1.5 1.0-4.8 Abs Mononuclear 0.4 0-0.8 Absolute Neutrophil Count 4.0 1.5-7.7 Abs Eosinophils 0.2 0-0.6 Abs Basophils 0 0-0.2 Basic Metabolic Panel 02/15/2012 [facility] Sodium 138 mmol/L 135-[address] [place] [address] [phone] Potassium 4.0 mmol/L 3.5-5.0 Chloride 106 mmol/L 101-111 Co2 (Carbon Dioxide) 27.0 mmol/L 22-32 Anion Gap 5.0 mmol/L 2-11 31 Glucose 107 mg/dL High 70-100 BUN 11 mg/dL 6-24 Creatinine 1.0 mg/dL 0.50-1.40 One Over Creatinine 1.00 BUN/Creatinine Ratio 11.0 8-20 Calcium 8.9 mg/dL 8.1-9.9 eGFR Non- 77.3 > 60 eGFR 99.4 > 60 32 Laboratory test 01/25/2011 [facility] Troponin-I 0 NG/ML 0- 0.06 33 finding [address] [place] [address] [phone] CBC Auto Diff 01/25/2011 [facility] White Blood 6.3 CUMM 4.8- 10.[address] [place] [address] [phone] Red Cell Count 4.69 CUMM 4.6-6.2 Hemoglobin 14.4 g/dL 14.0-18.0 Hematocrit 43 % 42-52 Mean Corpuscular Volume 91 um3 80-94 Mean Corpuscular Hemoglob 31 pg 27-31 Mean Corpuscular HGB Cone 34 g/dL 32-36 Redcell Distribution WDTH 13 % 10.5-15 Platelet Count 205 CUMM 150-450 Mean Platelet Volume 8.2 um3 7.4-10.4 Gran % 69.8 % 38-83 Lymph % 21.4 % Low 25-47 Mononuclear % 6.3 % 1-9 Eosinophil % 1.8 % 0-6 Basophil % 0.7 % 0-2 Abs Lymphs 1.3 1.0-4.8 Abs Mononuclear 0.4 0-0.8 Absolute Neutrophil Count 4.4 1.5-7.7 Abs Eosinophils 0.1 0-0.6 Abs Basophils 0 0-0.2 Laboratory test 01/25/2011 [facility] Troponin-I 0 NG/ML 0- 0.06 34 finding [address] [place] [address] [phone] Magnesium 1.9 mg/dL 1.7-2.6 Erythrocyte Sed Rate 5 MM/HR 0-20 Lyme Disease Serology Negative Negative 35 Comp Metabolic Panel 01/25/2011 [facility] Sodium 138 mmol/L 135-145 [address] [place] [address] [phone] Potassium 4.1 mmol/L 3.5-5.0 Chloride 108 mmol/L 101-111 Co2 (Carbon Dioxide) 27.0 mmol/L 22-32 Anion Gap 3.0 mmol/L 2-11 36 Glucose 120 mg/dL High 70-100 BUN 20 mg/dL 6-24 Creatinine 0.98 mg/dL 0.50-1.40 One Over Creatinine 1.00 BUN/Creatinine Ratio 20.4 High 8-20 Calcium 8.7 mg/dL 8.1-9.9 Total Protein 6.9 GM/DL 6.2-8.1 Albumin 3.9 GM/DL 3.6-5.4 Globulin 3.0 GM/DL 2-4 Albumin/Globulin Ratio 1.3 1-3 Bilirubin Total 0.4 mg/dL 0.4-1.5 37 Alkaline Phosphatase 73 U/L 39-117 Alt (SGPT) 34 U/L 17-63 Ast (Sgot) 42 U/L 12-42 eGFR Non- 79.4 > 60 eGFR 102.1 > 60 38 1 Because ethnic data is not always readily available, this report includes an eGFR for both -Americans and non- Americans. The National Kidney Disease Education Program (NKDEP) does not endorse the use of the MDRD equation for patients that are not between the ages of 18 and 70, are , have extremes of body size, muscle mass, or nutritional status, or are non- or non-. According to the National Kidney Foundation, irrespective of diagnosis, the stage of the disease is based on the level of kidney function: Stage Description GFR(mL/min/1.73 m(2)) 1 Kidney damage with normal or decreased GFR 90 2 Kidney damage with mild decrease in GFR 60-89 3 Moderate decrease in GFR 30-59 4 Severe decrease in GFR 15-29 5 Kidney failure <15 (or dialysis) 2 Desirable: <150 Borderline High: 150-199 High: 200-499 Very High: >500 3 Desirable: <200 Borderline High: 200-239 High: >239 4 Low: <40 Desirable: 40-60 High: >60 5 Desirable: <100 Near Optimal: 100-129 Borderline High: 130-159 High: 160-189 Very High: >189 6 Desirable <150 Borderline high 150-199 High 200-499 Very High >500 7 Desirable <200 Borderline high 200-239 High >239 8 Low <40 Desirable: 40-60 High: >60 9 Desirable: <100 mg/dL Near Optimal: 100-129 mg/dL Borderline High: 130-159 mg/dL High: 160-189 mg/dL Very High: >189 mg/dL 10 Because ethnic data is not always readily available, this report includes an eGFR for both -Americans and non- Americans. The National Kidney Disease Education Program (NKDEP) does not endorse the use of the MDRD equation for patients that are not between the ages of 18 and 70, are , have extremes of body size, muscle mass, or nutritional status, or are non- or non-. According to the National Kidney Foundation, irrespective of diagnosis, the stage of the disease is based on the level of kidney function: Stage Description GFR(mL/min/1.73 m(2)) 1 Kidney damage with normal or decreased GFR 90 2 Kidney damage with mild decrease in GFR 60-89 3 Moderate decrease in GFR 30-59 4 Severe decrease in GFR 15-29 5 Kidney failure <15 (or dialysis) 11 Fasting in 1 month 12 PT IS FASTING 13 PT IS FASTING 14 Because ethnic data is not always readily available, this report includes an eGFR for both -Americans and non- Americans. The National Kidney Disease Education Program (NKDEP) does not endorse the use of the MDRD equation for patients that are not between the ages of 18 and 70, are , have extremes of body size, muscle mass, or nutritional status, or are non- or non-. According to the National Kidney Foundation, irrespective of diagnosis, the stage of the disease is based on the level of kidney function: Stage Description GFR(mL/min/1.73 m(2)) 1 Kidney damage with normal or decreased GFR 90 2 Kidney damage with mild decrease in GFR 60-89 3 Moderate decrease in GFR 30-59 4 Severe decrease in GFR 15-29 5 Kidney failure <15 (or dialysis) 15 Desirable <150 Borderline high 150-199 High 200-499 Very High >500 16 Desirable <200 Borderline high 200-239 High >239 17 Low <40 Desirable: 40-60 High: >60 18 Desirable: <100 mg/dL Near Optimal: 100-129 mg/dL Borderline High: 130-159 mg/dL High: 160-189 mg/dL Very High: >189 mg/dL 19 SEE RESULT BELOW Name: FITO FLORES : [address]: Umair Anderson MD Acct: [id number] Unit: [id number] AGE: 59 Location: [facility] Re08/20/15 SEX: M Status: REG REF SPEC: [id number] REDD: 08/20/15-[address]: Umair Anderson MD REQ: [id number] RECD: 08/20/15 STATUS: SHARON MELÉNDEZ DR: Colleen ASHLEYP Thi Cadet MD _ SOURCE: GAS ANTRUM SPDESC: ORDERED: Clotest Procedure Result Reported Site Clotest Final 08/20/15- 1753 ML Clotest Positive * ML - MAIN LAB ([facility]) . END OF REPORT * ML=Testing performed at Main Lab DEPARTMENT OF PATHOLOGY, [address] [place] [address] David Engel M.D. Director [facility] # [id number] 20 [facility] Severe Sepsis and Septic Shock Management Bundle Measure requires all lactic acids initially measuring >2.0mmol/L be repeated. 21 Because ethnic data is not always readily available, this report includes an eGFR for both -Americans and non- Americans. The National Kidney Disease Education Program (NKDEP) does not endorse the use of the MDRD equation for patients that are not between the ages of 18 and 70, are , have extremes of body size, muscle mass, or nutritional status, or are non- or non-. According to the National Kidney Foundation, irrespective of diagnosis, the stage of the disease is based on the level of kidney function: Stage Description GFR(mL/min/1.73 m(2)) 1 Kidney damage with normal or decreased GFR 90 2 Kidney damage with mild decrease in GFR 60-89 3 Moderate decrease in GFR 30-59 4 Severe decrease in GFR 15-29 5 Kidney failure <15 (or dialysis) 22 Reference Range and Interpretation: TnI (ng/mL) Interpretation Less Than 0.03 ng/mL Not supportive of diagnosis of [place] 0.03 - 0.50 ng/mL Indeterminate: suggest serial studies if clinically indicated. Greater than 0.5 ng/mL Consistent with diagnosis of [place] 23 Reference Range and Interpretation: TnI (ng/mL) Interpretation Less Than 0.03 ng/mL Not supportive of diagnosis of [place] 0.03 - 0.50 ng/mL Indeterminate: suggest serial studies if clinically indicated. Greater than 0.5 ng/mL Consistent with diagnosis of [place] 24 >100 to <200 pg/mL: likely compensated congestive heart failure (CHF) 200 to 400 pg/mL: likely moderate CHF >400 pg/mL: likely moderate to severe CHF 25 Reference Range and Interpretation: TnI (ng/mL) Interpretation Less Than 0.03 ng/mL Not supportive of diagnosis of [place] 0.03 - 0.50 ng/mL Indeterminate: suggest serial studies if clinically indicated. Greater than 0.5 ng/mL Consistent with diagnosis of [place] 26 Because ethnic data is not always readily available, this report includes an eGFR for both -Americans and non- Americans. The National Kidney Disease Education Program (NKDEP) does not endorse the use of the MDRD equation for patients that are not between the ages of 18 and 70, are , have extremes of body size, muscle mass, or nutritional status, or are non- or non-. According to the National Kidney Foundation, irrespective of diagnosis, the stage of the disease is based on the level of kidney function: Stage Description GFR(mL/min/1.73 m(2)) 1 Kidney damage with normal or decreased GFR 90 2 Kidney damage with mild decrease in GFR 60-89 3 Moderate decrease in GFR 30-59 4 Severe decrease in GFR 15-29 5 Kidney failure <15 (or dialysis) 27 [facility] Severe Sepsis and Septic Shock Management Bundle Measure requires all lactic acids initially measuring >2.0mmol/L be repeated. 28 Because ethnic data is not always readily available, this report includes an eGFR for both -Americans and non- Americans. The National Kidney Disease Education Program (NKDEP) does not endorse the use of the MDRD equation for patients that are not between the ages of 18 and 70, are , have extremes of body size, muscle mass, or nutritional status, or are non- or non-. According to the National Kidney Foundation, irrespective of diagnosis, the stage of the disease is based on the level of kidney function: Stage Description GFR(mL/min/1.73 m(2)) 1 Kidney damage with normal or decreased GFR 90 2 Kidney damage with mild decrease in GFR 60-89 3 Moderate decrease in GFR 30-59 4 Severe decrease in GFR 15-29 5 Kidney failure <15 (or dialysis) 29 Anion gap measurement may be of limited value in the presence of any alkalosis, especially in a combined acid base disorder. . 30 Because ethnic data is not always readily available, this report includes an eGFR for both -Americans and non- Americans. The National Kidney Disease Education Program (NKDEP) does not endorse the use of the MDRD equation for patients that are not between the ages of 18 and 70, are , have extremes of body size, muscle mass, or nutritional status, or are non- or non-. According to the National Kidney Foundation, irrespective of diagnosis, the stage of the disease is based on the level of kidney function: Stage Description GFR(mL/min/1.73 m(2)) 1 Kidney damage with normal or decreased GFR 90 2 Kidney damage with mild decrease in GFR 60-89 3 Moderate decrease in GFR 30-59 4 Severe decrease in GFR 15-29 5 Kidney failure <15 (or dialysis) 31 Anion gap measurement may be of limited value in the presence of any alkalosis, especially in a combined acid base disorder. . 32 Because ethnic data is not always readily available, this report includes an eGFR for both -Americans and non- Americans. The National Kidney Disease Education Program (NKDEP) does not endorse the use of the MDRD equation for patients that are not between the ages of 18 and 70, are , have extremes of body size, muscle mass, or nutritional status, or are non- or non-. According to the National Kidney Foundation, irrespective of diagnosis, the stage of the disease is based on the level of kidney function: Stage Description GFR(mL/min/1.73 m(2)) 1 Kidney damage with normal or decreased GFR 90 2 Kidney damage with mild decrease in GFR 60-89 3 Moderate decrease in GFR 30-59 4 Severe decrease in GFR 15-29 5 Kidney failure <15 (or dialysis) 33 New Reference Range and Interpretation effective 04/28/2002 TnI (ng/ml) INTERPRETATION Less Than 0.06 ng/mL NOT SUPPORTIVE OF DIAGNOSIS OF OK 0.06 - 0.50 ng/ml INDETERMINATE: SUGGEST SERIAL STUDIES IF CLINICALLY INDICATED. Greater than 0.5 ng/mL CONSISTENT WITH DIAGNOSIS OF OK . 34 New Reference Range and Interpretation effective 04/28/2002 TnI (ng/ml) INTERPRETATION Less Than 0.06 ng/mL NOT SUPPORTIVE OF DIAGNOSIS OF OK 0.06 - 0.50 ng/ml INDETERMINATE: SUGGEST SERIAL STUDIES IF CLINICALLY INDICATED. Greater than 0.5 ng/mL CONSISTENT WITH DIAGNOSIS OF [place] . 35 Serologic response to B. burgdorferi infection is not detected, but cannot rule out early infection during which low or undetectable antibody levels to B. burgdorferi may be present. If clinically indicated, a new serum specimen should be submitted in 7-14 days. Test Performed by: [facility] Dpt of Lab Med and Pathology [address] [place], [place] [id number] [employer] Instructor: Jeremy Greco III, M.D. 36 Anion gap measurement may be of limited value in the presence of any alkalosis, especially in a combined acid base disorder. . 37 A metabolite of Naproxen, O-desmethylnaproxen, has been shown to interfere with the Jendrassik-Taylor method for measuring total bilirubin. Samples from patients who have taken Naproxen have shown spurious elevation in total bilirubin levels. 38 Because ethnic data is not always readily available, this report includes an eGFR for both -Americans and non- Americans. The National Kidney Disease Education Program (NKDEP) does not endorse the use of the MDRD equation for patients that are not between the ages of 18 and 70, are , have extremes of body size, muscle mass, or nutritional status, or are non- or non-. According to the National Kidney Foundation, irrespective of diagnosis, the stage of the disease is based on the level of kidney function: Stage Description GFR(mL/min/1.73 m(2)) 1 Kidney damage with normal or decreased GFR 90 2 Kidney damage with mild decrease in GFR 60-89 3 Moderate decrease in GFR 30-59 4 Severe decrease in GFR 15-29 5 Kidney failure <15 (or dialysis) Procedures Date Code Description Status 07/12/2018 32405 EKG Tracing & Interpretation Completed 03/22/2018 20683 EKG Tracing & Interpretation Completed 10/11/2017 08827 Holter Monitor Review (24 hr)dr hu & interp only Completed 10/08/2017 41543 ECG Monitor/Recording W/Visual Superimposition Scanning Completed 10/08/2017 37043 EKG Tracing & Interpretation Completed 06/09/2017 71919 Holter Monitor Review (24 hr)dr review & interp only Completed 06/07/2017 70050 ECG Monitor/Recording W/Visual Superimposition Scanning Completed 06/02/2017 86278 ECHO Transthoracic, Real-Time 2D With Doppler And Color Completed Flow 06/02/2017 55844 ECHO Transthoracic, Real-Time 2D With Doppler And Color Completed Flow 05/17/2017 48596 EKG Tracing & Interpretation Completed 02/25/2017 70464 Stress Test Completed 02/25/2017 99154 Myocardial Perfusion Imaging Tomographic (Spect) Multiple Completed Studies 02/05/2017 75496 EKG Tracing & Interpretation Completed 02/03/2017 89982 Holter Monitor Review (24 hr)dr review & interp only Completed 02/02/2017 94358 ECG Monitor/Recording W/Visual Superimposition Scanning Completed 01/01/2017 67644 Holter Monitor Review (24 hr)dr review & interp only Completed 12/30/2016 65710 ECG Monitor/Recording W/Visual Superimposition Scanning Completed 12/29/2016 45356 Holter Monitor Review (24 hr)dr review & interp only Completed 12/29/2016 07697 ECG Monitor/Recording W/Visual Superimposition Scanning Completed 11/24/2016 12809 EKG Tracing & Interpretation Completed 11/20/2016 43086 Holter Monitor Review (24 hr)dr review & interp only Completed 11/13/2016 04380 ECG Monitor/Recording W/Visual Superimposition Scanning Completed 11/12/2016 54164 EKG, Interpretation Only Completed 10/15/2016 42135 Holter Monitor Review (24 hr) review & interp only Completed 10/14/2016 80373 ECHO Transthoracic, Real-Time 2D With Doppler And Color Completed Flow 10/14/2016 89626 ECG Monitor/Recording W/Visual Superimposition Scanning Completed 10/08/2016 30332 EKG Tracing & Interpretation Completed 10/04/2016 35196 EKG, Interpretation Only Completed 09/25/2016 71842 EKG, Interpretation Only Completed 09/25/2016 76150 ECHO Transthorasic Realtime 2D W Doppler & Color Flow Hosp Completed 09/24/2016 13755 EKG, Interpretation Only Completed 09/23/2016 90060 Left Heart Cath. Incl S/I Coronaries, Angio S/I V Gram If Completed Done 09/23/2016 13717 EKG, Interpretation Only Completed 09/23/2016 00461 Revascularization Acute Total/Subtotal Occlusion Completed 06/09/2016 62906 EKG Tracing & Interpretation Completed 11/28/2015 30639 EKG Tracing & Interpretation Completed 11/13/2015 19923 Treadmill Interp/Report Only Completed 11/13/2015 01122 Stress Test Supervsn W/Out I/R Completed 10/10/2015 57178 ECHO Stress Test Incl Perf Contiuous ekg Monitoring W/Phys Completed Superv 09/11/2015 92135 EKG Tracing & Interpretation Completed 09/04/2015 40896 EKG Tracing & Interpretation Completed 08/20/2015 01010 EKG Tracing & Interpretation Completed 03/18/2015 09822 ECHO Transthoracic, Real-Time 2D With Doppler And Color Completed Flow 02/26/2015 65887 EKG Tracing & Interpretation Completed 12/20/2014 15681 Polysomnography Sleep Staging 4+ Parameters Completed 10/04/2014 36333 Holter Monitor Review (24 hr)dr review & interp only Completed 09/28/2014 29087 EKG Tracing & Interpretation Completed 06/25/2014 33749 Stress Test Completed 06/25/2014 79570 Myocardial Perfusion Imaging Tomographic (Spect) Multiple Completed Studies 05/24/2014 06489 ECHO Stress Test Incl Perf Contiuous ekg Monitoring W/Phys Completed Superv 05/14/2014 66666 ECHO Transthoracic, Real-Time 2D With Doppler And Color Completed Flow 04/17/2014 69691 Holter Monitor Review (24 hr)dr review & interp only Completed 04/13/2014 27136 EKG Tracing & Interpretation Completed 08/11/2013 27918 EKG Tracing & Interpretation Completed 12/02/2012 42284 EKG Tracing & Interpretation Completed 04/20/2012 59357 ECHO Stress Test Incl Perf Contiuous ekg Monitoring W/Phys Completed Superv 04/20/2012 81814 ECHO Stress Test Incl Perf Contiuous ekg Monitoring W/Phys Completed Superv 04/07/2012 97014 Holter Monitoring 24 HR New Completed 04/07/2012 91399 ECHO Transthoracic, Real-Time 2D With Doppler And Color Completed Flow 03/18/2012 14666 EKG Tracing & Interpretation Completed 02/18/2012 73438 Holter Monitoring 24 HR New Completed 08/17/2011 43034 EKG Tracing & Interpretation Completed 04/24/2011 47884 Holter Monitor Review (24 hr)dr review & interp only Completed 12/03/2010 23586 ECHO Stress Test Incl Perf Contiuous ekg Monitoring W/Phys Completed Superv 12/03/2010 87297 Color Flow Doppler/Interp & Reprt Completed 12/03/2010 24673 Pulse Wave/Continuous-Interp.RPT Completed 12/03/2010 37212 ECHO Transthorasic Realtime 2D W Doppler & Color Flow Hosp Completed 12/01/2010 62581 EKG Tracing & Interpretation Completed 10/03/2010 24535 EKG Tracing & Interpretation Completed 03/11/2010 30725 EKG Tracing & Interpretation Completed 08/14/2009 03843 EKG Tracing & Interpretation Completed 07/09/2009 01583 ECHO Stress Test Incl Perf Contiuous ekg Monitoring W/Phys Completed Superv 07/04/2009 24305 ECHO Transthoracic, Real-Time 2D With Doppler And Color Completed Flow 04/02/2009 56256 Holter Monitor Interpretation Completed 03/27/2009 17173 EKG Tracing & Interpretation Completed 12/12/2008 51860 EKG Tracing & Interpretation Completed 07/10/2008 03575 ECHO/Stress Completed 07/10/2008 15653 ECHO/Stress Completed 07/10/2008 05473 Stress Test Completed 07/10/2008 32806 Stress Test Completed 07/10/2008 96243 Stress Test Completed 06/28/2008 29026 Color Doppler Completed 06/28/2008 69445 Color Doppler Completed 06/28/2008 30255 Pulse Doppler & Continuous Wave Completed 06/28/2008 41905 Echocardiogram Completed 06/28/2008 81496 Echocardiogram Completed 06/05/2008 13578 EKG Tracing & Interpretation Completed 06/05/2008 00638 EKG Tracing & Interpretation Completed 12/28/2007 54062 EKG Tracing & Interpretation Completed 08/15/2007 63705 Color Doppler Completed 08/15/2007 48198 Color Doppler Completed 08/15/2007 93644 Pulse Doppler & Continuous Wave Completed 08/15/2007 69725 Pulse Doppler & Continuous Wave Completed 08/15/2007 69207 Pulse Doppler & Continuous Wave Completed 08/15/2007 29863 Echocardiogram Completed 08/15/2007 57506 Echocardiogram Completed 08/09/2007 72262 EKG Tracing & Interpretation Completed 08/09/2007 54275 EKG Tracing & Interpretation Completed 06/22/2007 83776 Left Heart Catheterization Completed 06/22/2007 04780 Inj Proc LFT Vent/LFT Atrl Angio Completed 06/22/2007 07799 Inj Proc LFT Vent/LFT Atrl Angio Completed 06/22/2007 16650 Coronary Angiography Completed 06/22/2007 39857 S/I/R Inj Proc Vent And Or Atrial Completed 06/22/2007 68080 S/I/R Inj Proc Vent And Or Atrial Completed 06/22/2007 04331 Selective Coronary Angioplasty Completed 06/09/2007 55371 EKG Tracing & Interpretation Completed 06/09/2007 35605 EKG Tracing & Interpretation Completed 04/01/2007 94626 EKG Tracing & Interpretation Completed 04/01/2007 16781 EKG Tracing & Interpretation Completed 02/11/2007 68510 Color Flow Doppler/Interp & Reprt Completed 02/11/2007 17697 Color Flow Doppler/Interp & Reprt Completed 02/11/2007 15889 Pulse Wave/Continuous-Interp.RPT Completed 02/11/2007 23826 Echocardiogram Completed 02/11/2007 36613 Echocardiogram Completed 02/11/2007 80497 EKG, Interpretation Only Completed Encounters Type Date Location Provider Dx Diagnosis Office Visit 03/22/2018 [facility] Thi S. 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 I48.0 Paroxysmal atrial Of [employer]oc[employer] Nurse Foster, N.P. fibrillation I25.10 Athscl heart disease of [place] coronary artery w/o ang pctrs E78.5 Hyperlipidemia, unspecified I49.3 Ventricular premature depolarization R00.0 Tachycardia, unspecified Office Visit 08/10/2017 9:23a [facility] Chao R42 [facility],ozzy Robison M.D. [facility] I25.2 Old myocardial infarction I48.0 Paroxysmal atrial fibrillation Office Visit 06/28/2017 [facility] S. I49.3 Ventricular 9:40a Cardiology Feliciano Cadet premature depolarization E78.5 Hyperlipidemia, unspecified I25.10 [place] heart disease of [place] coronary artery w/o ang pctrs G47.33 Obstructive sleep apnea (adult) (pediatric) E66.9 Obesity, unspecified Office Visit 05/17/2017 2:00p [facility] Sylvia Moya, I49.3 Ventricular PA premature depolarization I25.10 [place] heart disease of [place] coronary artery w/o ang pctrs I25.5 Ischemic cardiomyopathy E78.5 Hyperlipidemia, unspecified R00.2 Palpitations Office Visit 02/05/2017 8:30a [facility] Sylvia Moya, I49.3 Ventricular Of Vocational Nurse PA premature depolarization I25.10 [place] heart disease of [place] coronary artery w/o ang pctrs I25.5 Ischemic cardiomyopathy E78.5 Hyperlipidemia, unspecified Office Visit 01/14/2017 4:00p [facility] Qutaybeh S. R23.3 Spontaneous Cardiology Feliciano Cadet ecchymoses I25.10 [place] heart disease of [place] coronary artery w/o ang pctrs I25.5 Ischemic cardiomyopathy I49.3 Ventricular premature depolarization I49.1 Atrial premature depolarization E78.5 Hyperlipidemia, unspecified G47.33 Obstructive sleep apnea (adult) (pediatric) R07.9 Chest pain, unspecified Office Visit 12/29/2016 9:00a [facility] Sylvia Moya, I25.5 Ischemic Of Vocational Nurse PA cardiomyopathy I25.10 [place] heart disease of [place] coronary artery w/o ang pctrs E78.5 Hyperlipidemia, unspecified I48.0 Paroxysmal atrial fibrillation Office Visit 11/24/2016 3:20p [facility] Qutaybeh S. R42 Dizziness and Feliciano Cadet giddiness I49.3 Ventricular premature depolarization I25.5 Ischemic cardiomyopathy I25.10 [place] heart disease of [place] coronary artery w/o ang pctrs G47.33 Obstructive sleep apnea (adult) (pediatric) E78.4 Other hyperlipidemia R94.31 Abnormal electrocardiogram [ECG] [EKG] Office Visit 11/12/2016 Neurohospitalist Graciela Coughlin, R20.0 Anesthesia of 9:33a Clinic skin R42 Dizziness and giddiness Office Visit 11/12/2016 3:10p [facility] David Hernesto, M54.2 Cervicalgia Assoc,pc Hospitalists R42 Dizziness and giddiness Office Visit 10/27/2016 [facility] Thi S. I25.5 Ischemic 4:20p Cardiology Feliciano Cadet cardiomyopathy I49.3 Ventricular premature depolarization I25.10 [place] heart disease of [place] coronary artery w/o ang pctrs G47.33 Obstructive sleep apnea (adult) (pediatric) E78.4 Other hyperlipidemia Office Visit 10/08/2016 11:40a [facility] Thi S. I25.10 [place] heart Of Vocational Nurse Feliciano Cadet disease of [place] coronary artery w/o ang pctrs G47.33 Obstructive sleep apnea (adult) (pediatric) E78.4 Other hyperlipidemia E66.9 Obesity, unspecified I48.91 Unspecified atrial fibrillation I25.5 Ischemic cardiomyopathy R94.31 Abnormal electrocardiogram [ECG] [EKG] Office Visit 10/04/2016 2:28p [facility] Rohan Balbuena R55 Syncope and Assoc,ozzy Wiggins collapse Hospitalists R74.8 Abnormal levels of other serum enzymes I25.10 [place] heart disease of [place] coronary artery w/o ang pctrs Office Visit 10/03/2016 2:28p [facility] Tesfaye Osullivan R55 [facility],ozzy KNIGHT M.D. collapse Hospitalists R74.8 Abnormal levels of other serum enzymes I25.10 [place] heart disease of [place] coronary artery w/o ang pctrs Office Visit 09/27/2016 3:55p [facility] José Steele, I21.02 Stemi involving Of Vocational Nurse AT [facility], [facility], left anterior FSCAI descending coronary artery Office Visit 09/26/2016 3:53p [facility] José Steele, I21.02 Stemi involving Of Vocational Nurse AT [facility], FAC, left anterior FSCAI descending coronary artery Office Visit 09/25/2016 3:43p [facility] José Steele, I21.02 Stemi involving Of Vocational Nurse AT [facility], FACC, left anterior FSCAI descending coronary artery Office Visit 09/24/2016 4:22p [facility] José Steele, I21.02 Stemi involving Of Vocational Nurse AT [facility], FACC, left anterior FSCAI descending coronary artery I48.91 Unspecified atrial fibrillation Office Visit 09/23/2016 10:56a [facility] José Cedric, I21.02 Stemi involving Of Vocational Nurse AT [facility] Feliciano, FACC, left anterior FSCAI descending coronary artery I25.10 [place]scl heart disease of [place] coronary artery w/o ang pctrs Office Visit 06/09/2016 [facility] Qutay[facility] S. 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 Hospitalists F41.0 Panic disorder without agoraphobia Office Visit 05/21/2015 [facility] G47.33 Obstructive sleep 9:00a Sleep Services Of DALIA Mayers, RN, apnea (adult) [facility]- (pediatric) Office Visit 04/29/2015 [facility] Qutaybeh S. G47.33 Obstructive sleep 10:00a Feliciano Cadet apnea (adult) (pediatric) I25.10 [place] heart disease of [place] coronary artery w/o ang pctrs E78.4 Other hyperlipidemia Office Visit 03/19/2015 [facility] Ai 327.23 Obstructive Sleep 9:15a Sleep Services Of DALIA Mayers, RN, Apnea Adult & [facility] Pediatric Office Visit 02/26/2015 [facility] Qutaybeh S. 327.23 Obstructive Sleep 9:00a Feliciano Cadet Apnea Adult & Pediatric 786.09 Dyspnea & Respiratory Abnormalities Other 272.4 Hyperlipidemia Other Unspec 414.01 Coronary Atherosclerosis Ak Chin 786.50 Pain Chest Unspec Office Visit 01/15/2015 Pul[facility] Ai 327.23 Obstructive Sleep 10:00a Sleep Services Of DALIA Mayers, Apnea Adult & Vocational Nurse RN, [facility] Pediatric Office Visit 11/08/2014 [facility] LAMONT Louise 272.4 Hyperlipidemia 9:30a Other Unspec 276.8 Hypopotassemia 427.69 Premature Beats Other 785.1 Palpitations Office Visit 11/07/2014 10:40a Neurosurgery Nicanor Kalani. 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 427.69 Premature Beats Feliciano Cadet Other 414.01 Coronary Atherosclerosis Ak Chin V45.82 Percutaneous Transluminal Coronary Angioplas Postsurg Status 272.4 Hyperlipidemia Other Unspec 276.8 Hypopotassemia Office Visit 06/25/2014 3:01p [facility] Qutaybeh S. 427.69 Premature Beats Of Bernabe Cadet M.D. Other 427.69 Premature Beats Other 414.01 Coronary Atherosclerosis Ak Chin 414.01 Coronary Atherosclerosis Ak Chin 786.50 Pain Chest Unspec 786.50 Pain Chest Unspec V45.82 Percutaneous Transluminal Coronary Angioplas Postsurg Status V45.82 Percutaneous Transluminal Coronary Angioplas Postsurg Status Office Visit 05/24/2014 9:30a [facility] Qutaybeh S. 427.69 Premature Beats Feliciano Cadet Other 414.01 Coronary Atherosclerosis Ak Chin 786.50 Pain Chest Unspec Office Visit 04/13/2014 Isidro Alexanderybeh S. 414.01 Coronary 9:20a Kelsey Cadet M.D. Atherosclerosis Ak Chin V45.82 Percutaneous Transluminal Coronary Angioplas Postsurg Status 272.4 Hyperlipidemia Other Unspec 427.69 Premature Beats Other 786.50 Pain Chest Unspec 786.05 Shortness Of Breath Office Visit 08/11/2013 Isidro Broeh S. 414.01 Coronary 9:00a Kelsey Cadet M.D. Atherosclerosis Ak Chin V45.82 Percutaneous Transluminal Coronary Angioplas Postsurg Status 272.4 Hyperlipidemia Other Unspec 794.31 Electrocardiogram (ECG) (EKG) Abnormal Office Visit 12/02/2012 [facility] Qumeliybeh S. 414.01 Coronary 9:00a Kelsey Cadet M.D. Atherosclerosis Ak Chin V45.82 Percutaneous Transluminal Coronary Angioplas Postsurg Status 272.4 Hyperlipidemia Other Unspec Office Visit 05/04/2012 Isidro Qumeliybeh S. 414.01 Coronary 9:00a Kelsey Cadet M.D. Atherosclerosis Ak Chin V45.82 Percutaneous Transluminal Coronary Angioplas Postsurg Status 272.4 Hyperlipidemia Other Unspec 427.69 Premature Beats Other Office Visit 03/18/2012 10:40a [facility] Shimatalupeeh S. 786.50 Pain Chest Feliciano Cadet Unspec 414.01 Coronary Atherosclerosis Ak Chin V45.82 Percutaneous Transluminal Coronary Angioplas Postsurg Status 272.4 Hyperlipidemia Other Unspec 794.31 Electrocardiogram (ECG) (EKG) Abnormal 427.1 Paroxysmal Ventricular Tachycardia 785.1 Palpitations Office Visit 08/17/2011 [facility] Qumelilupeeh S. 414.01 Coronary 11:20a Kelsey Cadet M.D. Atherosclerosis Ak Chin 786.50 Pain Chest Unspec V45.82 Percutaneous Transluminal Coronary Angioplas Postsurg Status 272.4 Hyperlipidemia Other Unspec 794.31 Electrocardiogram (ECG) (EKG) Abnormal Office Visit 04/24/2011 9:30a Neurosurgery Zaid Diane.4 Brachial Neuritis Services Of Bernabe Chi M.D. 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 729.5 Pain In Limb Office Visit 12/03/2010 [facility] Qutaybeh S. 414.01 Coronary 11:30a Kelsey Cadet M.D. Atherosclerosis Ak Chin 786.50 Pain Chest Unspec V45.82 Percutaneous Transluminal Coronary Angioplas Postsurg Status Office Visit 12/01/2010 [facility] Qutaybeh S. 414.01 Coronary 11:00a Kelsey Cadet M.D. Atherosclerosis Ak Chin 786.50 Pain Chest Unspec 272.4 Hyperlipidemia Other Unspec V45.82 Percutaneous Transluminal Coronary Angioplas Postsurg Status Office Visit 10/03/2010 [facility] Qutaybeh S. 414.01 Coronary 12:00p Kelsey Cadet M.D. Atherosclerosis Ak Chin 272.4 Hyperlipidemia Other Unspec 786.50 Pain Chest Unspec Office Visit 03/11/2010 [facility] Qutaybeh S. 414.01 Coronary 9:40a Kelsey Cadet M.D. Atherosclerosis Ak Chin 272.4 Hyperlipidemia Other Unspec Office Visit 08/14/2009 [facility] Qutaybeh S. 414.01 Coronary 9:20a Kelsey Cadet M.D. Atherosclerosis Ak Chin 786.50 Pain Chest Unspec Office Visit 03/27/2009 [facility] Qutaybeh S. 414.01 Coronary 9:20a Kelsey Cadet M.D. Atherosclerosis Ak Chin 785.1 Palpitations 427.69 Premature Beats Other 786.50 Pain Chest Unspec Office Visit 12/12/2008 [facility] Qutaybeh S. 414.01 Coronary 10:40a Kelsey Cadet M.D. Atherosclerosis Ak Chin 272.4 Hyperlipidemia Other Unspec V45.82 Percutaneous Transluminal Coronary Angioplas Postsurg Status 786.50 Pain Chest Unspec Office Visit 07/17/2008 [facility] Qutaybeh S. 414.01 Coronary 10:00a Kelsey Cadet M.D. Atherosclerosis Ak Chin 786.50 Pain Chest Unspec 272.4 Hyperlipidemia Other Unspec Office Visit 06/05/2008 [facility] Qutaybeh S. 414.01 Coronary 11:10a Kelsey Cadet M.D. Atherosclerosis Ak Chin 786.50 Pain Chest Unspec 427.69 Premature Beats Other V45.82 Percutaneous Transluminal Coronary Angioplas Postsurg Status 272.4 Hyperlipidemia Other Unspec Office Visit 12/28/2007 [facility] Qutaybeh S. 414.01 Coronary 9:00a Cardiology Feliciano Cadet Atherosclerosis Ak Chin 786.50 Pain Chest Unspec 427.69 Premature Beats Other V45.82 Percutaneous Transluminal Coronary Angioplas Postsurg Status 272.4 Hyperlipidemia Other Unspec Office Visit 08/09/2007 [facility] Qutaybeh S. 414.01 Coronary 11:00a Cardiology Feliciano Cadet Atherosclerosis Ak Chin 786.50 Pain Chest Unspec 427.69 Premature Beats Other V45.82 Percutaneous Transluminal Coronary Angioplas Postsurg Status 272.4 Hyperlipidemia Other Unspec Office Visit 06/24/2007 [facility] Qutaybeh S. 414.01 Coronary 2:20p Cardiology Feliciano Cadet Atherosclerosis Ak Chin V45.82 Percutaneous Transluminal Coronary Angioplas Postsurg Status 272.4 Hyperlipidemia Other Unspec 786.50 Pain Chest Unspec 427.69 Premature Beats Other Office Visit 06/09/2007 [facility] Qutaybeh S. 414.01 Coronary 3:40p Cardiology Feliciano Cadet Atherosclerosis Ak Chin V45.82 Percutaneous Transluminal Coronary Angioplas Postsurg Status 272.4 Hyperlipidemia Other Unspec 786.50 Pain Chest Unspec 427.69 Premature Beats Other Office Visit 04/01/2007 [facility] Qumeliybeh S. 414.01 Coronary 1:40p Cardiology Feliciano Cadet Atherosclerosis Ak Chin V45.82 Percutaneous Transluminal Coronary Angioplas Postsurg Status 272.4 Hyperlipidemia Other Unspec 786.50 Pain Chest Unspec Plan of Treatment Future Appointment(s):08/18/2018 10:00 am - Trish Denny, N.PAni at [facility]08/05/2018 11:00 am - Nurse Visit IC at [facility]2018 11:15 am - Nurse Visit IC at [facility]08/01/2018 1:30 pm - Traveling ECHO 1 at [facility]08/16/2018 11:30 am - Thi Cadet M.D. at [facility]08/16/2018 11:00 am - [place] ECHO Schedule at [facility]07/12/2018 - Trish Denny N.P.R00.0 Tachycardia, unspecifiedNew Orders:Holter Monitor, Scheduled: 08/04/18Follow up:1 mo OV Trish after testing QSM [id number]/7058W58.02 Shortness of breathNew Orders:Stress Test, Exercise Echocardiogram, Scheduled: 08/16/18Echocardiogram, Scheduled: E78.5 Hyperlipidemia, ijjrrcoxouoO28.10 Atherosclerotic heart disease of [place] coronary artery withRecommendations:I will get a hold of lipid profile and we can talk about injectable cholesterol medications. Repatha and Praluent are the two medicines.I25.2 Old myocardial infarction
--- OUTSIDE RECORDS SUMMARY | 2018-08-07 11:32 | XMS REPORT | Continuity of Care Document ---
:1955 External Reference #:[id number] Author Name Lanny Silver Care Team Providers Name Role Phone Vanessa Gonzalez N.P. Primary Care Physician Unavailable Payers Type Date Identification Numbers Payment Provider Subscriber Policy Number: [id number] [facility] Fito Flores PayID: [id number] [address] [place] [address] Effective: 2014 Policy Number: [id number] Of [facility] Fito Flores Expires: 2015 Group Number: [id number] [address] [address] PayID: [id number] [place] [address] Advance Directives Description No Information Available Problems Date Description Provider Status Onset: 08/17/2011 Coronary arteriosclerosis Donn Mayorga M.D. Onset: 08/17/2011 Chest pain Donn Mayorga M.D. Onset: 08/17/2011 Patient post percutaneous Donn Mayorga transluminal coronary angioplasty M.DAni Onset: 08/17/2011 Hyperlipidemia Donn Mayorga M.D. Onset: 08/17/2011 Electrocardiogram abnormal Donn Mayorga M.D. Onset: 03/18/2012 Paroxysmal ventricular tachycardia Donn Mayorga M.D. Onset: 03/18/2012 Palpitations Donn Mayorga M.D. Onset: 05/04/2012 Premature beats Donn Mayorga M.D. 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 Active myelopathy Onset: 01/15/2015 Obstructive sleep apnea of adult Ai Mayers DNP, RN, Active [employer]ILLING [employer]ATE- Family History Date Family Member(s) Problem(s) Comments [...] Patient has never smoked Smoking Status Reviewed: 03/22/18 Patient has never smoked Exercise Type/Frequency Does not exercise Allergies, Adverse Reactions, Alerts Date Description Reaction Status Severity Comments 04/01/2007 Tetracycline Active rash 12/01/2010 Belladonna Active "overdose reaction" 10/08/2016 Contrast Dye Active 10/08/2017 Statins Active Medications Medication Date Status Form Strength Qnty SIG Indications Ordering Provider Brilinta 10/02 Active Tablets 90mg 180ta 1 tab by bs mouth twice S. a day Feliciano Cadet Klor-Con 10 08/14 Active Tablets ER 10Meq 360ta 2 tabs once bs a day as S. needed Feliciano Cadet Tylenol Extra 08/09 Active Tablets 500mg. 100ta prn /2007 bs Lamont Cadet M.D. Asa Active 81mg 30uni 1 po qd ts Cpap Active Device at hs (patient has not used consistently in past month 02/05/17) Toprol XL Active Tablets ER 25mg 1 by mouth 24HR qpm at 5pm Lamont Cadet M.D. Omeprazole Active Omeprazole Unknown DR 40 mg daily by mouth. Coenzyme Q-10 12/29 Hx Capsules 200mg 1 by mouth E78.5 daily S. - (01/14/17) Pt Maghaydah 10/08 has not , M.D. started yet Crestor 11/24 Hx Tablets 5mg 30tab one po Tiw, s Mon, Wed, S. - Fri (pt stop Maghaydah 10/08 taking , M.D. /201702/19/17) Toprol XL 10/02 Hx Tablets ER 50mg 30tab 1/2 tablet Quyb 24HR s by mouth S. - [facility] , M.D. 11/13/16 [place] [facility] [place] Atorvastatin 10/02 Hx Tablets 40mg 90tab 1 by mouth tayb s every day S. - 11/10/16 [facility]. Clarithromycin 09/04 Hx Tablets 500mg 28tab 1 by mouth s twice a day Ordering - for 14 days Provider 11/26 Crestor 12/12 Hx Tablets 5mg 30tab 1 po qd s S. - [facility] , M.D. Co-Enzyme Q10 07/17 Hx Capsules 150 qd Qutayb S. - [facility] , M.D. Vitamin B 07/17 Hx Tablets 1 PO qd ( Qutaybeh last taken 3 S. - day ago) [facility] , M.DAni Nitrostat 09/12 Hx Tablets Sub 0.4mg 25tab One SL Q5min Qutaybeh s Up To 3 S. - [facility]oses prn [facility] , M.D. /2013 Xanax 04/01 Hx Tablets 0.25mg 30tab 1 Tab PO prn Qutaybeh s S. - [facility] 10[facility] , M.D. /2016 Tums 04/01 Hx Chewtabs prn Qutaybeh S. - Maghaydah 08/17 , M.D. /2011 Plavix 04/01 Hx Tablets 75mg 90tab 1 PO qd Qutaybeh s S. - Helio 03/11 , Feliciano /2009 Toprol XL 04/01 Hx Tablets ER 25mg 90tab 1 PO qd Qutayb 24HR s [facility] 10/02 , M.DAni /2016 Altace 04/01 Hx Capsules 5mg 90cap 1 PO qd Qut[facility]b s S. [facility] , Moreno.DAni /2006 Lipitor 04/01 Hx Tablets 80mg 90tab 1 PO QHS [facility] s . [facility] Moreno.DAni /2006 Aspirin 04/01 Hx Chewtabs 81mg 1 PO qd [facility] , Feliciano /2007 Norvasc 04/01 Hx Tablets 2.5mg 30tab 1 PO qd Qutayb s . [facility] 04/01 , Moreno.Alissa /2006 Celebrex 04/01 Hx Capsules 200mg 30cap 1 PO qd Qutayb s . [facility] 04/01 , Moreno.DAni /2006 Advil 04/01 Hx Capsules 200mg decreasing dose down to S. - 600 mg qd [facility] 08[facility] , Feliciano Pepcid 04/01 Hx Qutayb . [facility] , ClausDAni /2017 Zocor 04/01 Hx Tablets 20mg 30tab one qhs [facility] Feliciano Vitamin D Hx Capsules 79198Uhww 8caps po q week for 8 weeks - 12/01 Vit D Hx one po q week - 12/01 Carafate Hx 1 tablet prn - 10/01 Xanax Hx Tablets 0.5mg by mouth once a day - as needed 03/21 Amiodarone HCL Hx Tablets 200mg 90tab 1 by mouth [facility]b [facility] Feliciano /2016 Milk Of Hx Suspension 400mg/5ML 30 Unknown Magnesia /0000 milliliters - by mouth 05/16 every day at bedtime as needed Medications Administered in Office Medication Date Status Form Strength Qnty SIG Indications Ordering Provider Technetium TC Administered Injection Ismael Miguel 99M 017 DO Jeremy Tetrofosmin, FACC Per Unit Dose Up To 40 Millicuries Technetium TC Administered Injection Jaime Maxwell 99M 014 Feliciano Bolivar Tetrofosmin, Per Unit Dose Up To 40 Millicuries Immunizations Description No Information Available Vital Signs Date Vital Result Comment 03/22/2018 8:53am Height 79 inches 6'7" Weight [...] Range Note Lipid Panel - 05/14/2017 [facility] Creatine 225 U/L High 10- 223 [address]CK) [place] [address] [phone] Comp Metabolic 05/14/2017 [facility] Potassium 5.0 mmol/L N 3.5-5.0 Panel [address] [place] [address] [phone] Chloride 104 mmol/L N 101-111 Co2 Carbon [...] U/L N 13-39 Lipid Profile 05/14/2017 [facility] Triglycerides 96 mg/dL N 2 (Trig/Chol/HDL) [address] [place] [address] [phone] Cholesterol 188 mg/dL N 3 HDL Cholesterol 43.9 mg/dL N 4 LDL Cholesterol 125 mg/dL N 5 Laboratory test 05/14/2017 [facility] Magnesium 2.1 mg/dL N 1.9-2.[address] [place] [address] [phone] TSH (Thyroid Stim Horm) 2.70 mcIU/mL N 0.34-5.60 Lipid Panel - 02/04/2017 [facility] Creatine 252 U/L High 10- 223 [address] Kinase(CK) [place] [address] [phone] Comp Metabolic 02/04/2017 [facility] Sodium 137 N 133-[address] mmol/[place] [address] [phone] Potassium 4.3 mmol/L N 3.5-5.0 Chloride 106 [...] 68.1 N >60 Egfr 87.5 N >60 7 Lipid Profile 02/04/2017 [facility] Triglycerides 80 mg/dL N 8 (Trig/Chol/HDL) [address] [place] [address] [phone] Cholesterol 188 mg/dL N 9 HDL Cholesterol 45.8 mg/dL N 10 LDL Cholesterol 126 mg/dL N 11 Laboratory test finding 12/25/2016 [facility] Alt 21 U/L N 7- [address] [place] [address] [phone] Ast 25 U/L N 13-39 Laboratory test 12/25/2016 [facility] Creatine 165 U/L N 10- 223 [address] Kinase(CK) [place] [address] [phone] Lipid Profile 12/25/2016 [facility] Triglycerides 134 N 14 (Trig/Chol/HDL) [address] mg/[place] [address] [phone] Cholesterol 194 mg/dL N 15 HDL Cholesterol 41.6 mg/dL N 16 LDL Cholesterol 126 mg/dL N 17 Comp Metabolic Panel 12/25/2016 [facility] Sodium 137 mmol/L N 133-[address] [place] [address] [phone] Potassium 4.7 mmol/L N 3.5-5.0 Chloride 103 [...] 61.6 N >60 Egfr 79.2 N >60 18 Laboratory test 08/20/2015 [facility] Clotest SEE RESULT [address] [place] [address] [phone] Laboratory test 08/11/2015 [facility] Troponin-I 0.00 ng/mL N <0.03 [address] (TnI) [place] [address] [phone] CBC Auto Diff 08/11/2015 [facility] White Blood 6.9 10^3/uL N 3.5-[address] Count .8 [place] [address] [phone] Red Blood Count 4.83 10^6/uL N 4.0-5.4 [...] % 0.1 N Laboratory test 08/11/2015 [facility] Lactic Acid 0.9 mmol/L N 0.5-2.0 21 finding [address] [place] [address] [phone] Comp Metabolic 08/11/2015 [facility] Sodium 138 mmol/L N 133- 145 Panel [address] [place] [address] [phone] Potassium 3.6 mmol/L N 3.5-5.0 Chloride 106 [...] 70.7 N >60 Egfr 91.0 N >60 22 Laboratory test 08/11/2015 [facility] Magnesium 1.9 mg/dL N 1.9-2.[address] [place] [address] [phone] Troponin-I (TnI) 0.00 ng/mL N <0.03 23 Laboratory test 07/14/2015 [facility] Partial 29.7 seconds N 26.0-36.[address] [place] [address] [phone] B-Type Natriuretic Peptide BNP 47 pg/mL N 24 CBC Auto Diff 07/14/2015 [facility] White Blood 6.6 10^3/uL N 3.5-10.[address] [place] [address] [phone] Red Blood Count 4.92 10^6/uL N 4.0-5.4 [...] Nucleated Red Blood Cells % 0.1 N Inr/Protime 07/14/2015 [facility] Inr 0.96 N 0.89-1.[address] [place] [address] [phone] CKMB 07/14/2015 [facility] CKMB ng/mL 3.1 ng/mL N 0.6-6.3 [address] [place] [address] [phone] Laboratory test 07/14/2015 [facility] Creatine 215 U/L N 10- 223 finding 101 [facility] Kinase(CK) [place] [address] [phone] Troponin-I (TnI) 0.00 ng/mL N <0.03 25 Comp Metabolic Panel 07/14/2015 [facility] Sodium 137 mmol/L N 133-145 [address] [place] [address] [phone] Potassium 3.6 mmol/L N 3.5-5.0 Chloride 107 [...] N >60 26 Laboratory test 07/14/2015 [facility] Lactic Acid 0.7 mmol/L N 0.5-2.0 27 finding [address] [place] [address] [phone] Basic Metabolic 09/28/2014 [facility] Sodium 138 mmol/L N 133- 145 Panel [address] [place] [address] [phone] Potassium 4.6 mmol/L N 3.5-5.0 Chloride 104 [...] N >60 28 Laboratory test 09/28/2014 [facility] Magnesium 2.1 mg/dL N 1.9-2.7 finding [address] [place] [address] [phone] Order 05/14/2014 [facility] Echocardiogram <pending> [address] [place] [address] [phone] Basic Metabolic 02/22/2012 [facility] Sodium 139 mmol/L 135- 145 Panel [address] [place] [address] [phone] Potassium 4.4 mmol/L 3.5-5.0 Chloride 106 mmol/L 101-111 Co2 (Carbon Dioxide) 28.0 mmol/L 22-32 Anion Gap 5.0 mmol/L 2-11 29 Glucose 106 mg/dL High 70-100 BUN 17 mg/dL 6-24 Creatinine 1.0 mg/dL 0.50-1.40 One Over Creatinine 1.00 BUN/Creatinine Ratio 17.0 8-20 Calcium 9.3 mg/dL 8.1-9.9 eGFR Non- 77.3 > 60 eGFR 99.4 > 60 30 Basic Metabolic Panel 02/15/2012 [facility] Sodium 138 mmol/L 135-145 [address] [place] [address] [phone] Potassium 4.0 mmol/L 3.5-5.0 Chloride 106 mmol/L 101-111 Co2 (Carbon Dioxide) 27.0 mmol/L 22-32 Anion Gap 5.0 mmol/L 2-11 31 Glucose 107 mg/dL High 70-100 BUN 11 mg/dL 6-24 Creatinine 1.0 mg/dL 0.50-1.40 One Over Creatinine 1.00 BUN/Creatinine Ratio 11.0 8-20 Calcium 8.9 mg/dL 8.1-9.9 eGFR Non- 77.3 > 60 eGFR 99.4 > 60 32 CBC Auto Diff 02/15/2012 [facility] White Blood 6.1 CUMM 4.8- 10.[address] [place] [address] [phone] Red Cell Count 4.75 CUMM 4.6-6.2 Hemoglobin [...] Eosinophils 0.2 0-0.6 Abs Basophils 0 0-0.2 Laboratory test 02/15/2012 [facility] TSH 1.84 MIU/ML 0.34- 5.[address] [place] [address] [phone] Magnesium 2.0 mg/dL 1.7-2.6 Laboratory test 01/25/2011 [facility] Troponin-I 0 NG/ML 0- 0.06 [address] [place] [address] [phone] CBC Auto Diff 01/25/2011 [facility] White Blood 6.3 CUMM 4.8- 10.[address] [place] [address] [phone] Red Cell Count 4.69 CUMM 4.6-6.2 Hemoglobin [...] Eosinophils 0.1 0-0.6 Abs Basophils 0 0-0.2 Comp Metabolic Panel 01/25/2011 [facility] Sodium 138 mmol/L 135-[address] [place] [address] [phone] Potassium 4.1 mmol/L 3.5-5.0 Chloride 108 mmol/L 101-111 Co2 (Carbon Dioxide) 27.0 mmol/L 22-32 Anion Gap 3.0 mmol/L 2-11 34 Glucose 120 mg/dL High 70-100 BUN 20 mg/dL 6-24 Creatinine 0.98 mg/dL 0.50-1.40 One Over Creatinine 1.00 BUN/Creatinine Ratio 20.4 High 8-20 Calcium 8.7 mg/dL 8.1-9.9 Total Protein 6.9 GM/DL 6.2-8.1 Albumin 3.9 GM/DL 3.6-5.4 Globulin 3.0 GM/DL 2-4 Albumin/Globulin Ratio 1.3 1-3 Bilirubin Total 0.4 mg/dL 0.4-1.5 35 Alkaline Phosphatase 73 U/L 39-117 Alt (SGPT) 34 U/L 17-63 Ast (Sgot) 42 U/L 12-42 eGFR Non- 79.4 > 60 eGFR 102.1 > 60 36 Laboratory test 01/25/2011 [facility] Troponin-I 0 NG/ML 0- 0.06 [address] [place] [address] [phone] Magnesium 1.9 mg/dL 1.7-2.6 Erythrocyte Sed Rate 5 MM/HR 0-20 Lyme Disease Serology Negative Negative 38 1 Because ethnic data is not [...] 130-159 High: 160-189 Very High: >189 6 Fasting in 1 month 7 Because ethnic data is not always readily [...] 15-29 5 Kidney failure <15 (or dialysis) 8 Desirable <150 Borderline high 150-199 High 200-499 Very High >500 9 Desirable <200 Borderline high 200-239 High >239 10 Low <40 Desirable: 40-60 High: >60 11 Desirable: <100 mg/dL Near Optimal: 100-129 mg/dL Borderline High: 130-159 mg/dL High: 160-189 mg/dL Very High: >189 mg/dL 12 PT IS FASTING 13 PT IS FASTING 14 Desirable <150 Borderline high 150-199 High 200-499 Very High >500 15 Desirable <200 Borderline high 200-239 High >239 16 Low <40 Desirable: 40-60 High: >60 17 Desirable: <100 mg/dL Near Optimal: 100-129 mg/dL Borderline High: 130-159 mg/dL High: 160-189 mg/dL Very High: >189 mg/dL 18 Because ethnic data is not always readily [...] 15-29 5 Kidney failure <15 (or dialysis) 19 SEE RESULT BELOW Name: FITO FLORES : [address]: Umair Anderson MD Acct: [id number] Unit: [id number] AGE: 59 Location: [facility] Re08/20/15 SEX: M Status: REG REF SPEC: [id number] REDD: 08/20/15-[address] [facility] [address]: Umair Anderson MD REQ: [id number] RECD: 08/20/15 STATUS: SHARON MELÉNDEZ DR: Colleen Cadet MD _ SOURCE: GAS ANTRUM SPDESC: ORDERED: Clotest Procedure Result Reported Site Clotest Final 08/20/15- 175 ML Clotest Positive * ML - MAIN LAB ([facility]) . END OF REPORT * ML=Testing performed at Main Lab DEPARTMENT OF PATHOLOGY, [address] [place] [address] David Engel M.D. Director [facility] # [id number] 20 Reference Range and Interpretation: TnI (ng/mL) Interpretation Less Than 0.03 ng/mL Not supportive of diagnosis of [place] 0.03 - 0.50 ng/mL Indeterminate: suggest serial studies if clinically indicated. Greater than 0.5 ng/mL Consistent with diagnosis of [place] 21 [facility] Severe Sepsis and Septic Shock Management Bundle Measure requires all lactic acids initially measuring >2.0mmol/L be repeated. 22 Because ethnic data is not always readily [...] 15-29 5 Kidney failure <15 (or dialysis) 23 Reference Range and Interpretation: TnI (ng/mL) Interpretation Less Than 0.03 ng/mL Not supportive of diagnosis of [place] 0.03 - 0.50 ng/mL Indeterminate: suggest serial studies if clinically indicated. Greater than 0.5 ng/mL Consistent with diagnosis of [place] 24 >100 to <200 pg/mL: likely compensated congestive heart failure (CHF) 200 to 400 pg/mL: likely moderate CHF >400 pg/mL: likely moderate to severe CHF 25 Reference Range and Interpretation: TnI (ng/mL) Interpretation Less Than 0.03 ng/mL Not supportive of diagnosis of [place] 0.03 - 0.50 ng/mL Indeterminate: suggest serial studies if clinically indicated. Greater than 0.5 ng/mL Consistent with diagnosis of [place] 26 Because ethnic data is not always [...] 5 Kidney failure <15 (or dialysis) 27 [facility] Severe Sepsis and Septic Shock Management [...] 0.06 ng/mL NOT SUPPORTIVE OF DIAGNOSIS OF [place] 0.06 - 0.50 ng/ml INDETERMINATE: SUGGEST SERIAL STUDIES IF CLINICALLY INDICATED. Greater than 0.5 ng/mL CONSISTENT WITH DIAGNOSIS OF [place] . 34 Anion gap measurement may be of limited value in the presence of any alkalosis, especially in a combined acid base disorder. . 35 A metabolite of Naproxen, O-desmethylnaproxen, has been shown to interfere with the [place] method for measuring total bilirubin. Samples from patients who have taken Naproxen have shown spurious elevation in total bilirubin levels. 36 Because ethnic data is not always readily [...] 15-29 5 Kidney failure <15 (or dialysis) 37 New Reference Range and Interpretation effective 04/28/2002 TnI (ng/ml) INTERPRETATION Less Than 0.06 ng/mL NOT SUPPORTIVE OF DIAGNOSIS OF [place] 0.06 - 0.50 ng/ml INDETERMINATE: SUGGEST SERIAL STUDIES IF CLINICALLY INDICATED. Greater than 0.5 ng/mL CONSISTENT WITH DIAGNOSIS OF [place] . 38 Serologic response to B. burgdorferi infection is not detected, but cannot rule out early infection during which low or undetectable antibody levels to B. burgdorferi may be present. If clinically indicated, a new serum specimen should be submitted in 7-14 days. Test Performed by: [facility] Dpt of Lab Med and Pathology [address] [place] [id number] Vice President [employer]: Jeremy Greco III, M.D. Procedures Date Code Description Status 03/22/2018 16042 EKG Tracing & Interpretation Completed 10/11/2017 64602 Holter Monitor Review (24 hr) review & interp only Completed 10/08/2017 77640 ECG Monitor/Recording W/Visual Superimposition Scanning Completed 10/08/2017 04279 EKG Tracing & Interpretation Completed 06/09/2017 15509 Holter Monitor Review (24 hr) review & interp only Completed 06/07/2017 83589 ECG Monitor/Recording W/Visual Superimposition Scanning Completed 06/02/2017 09788 ECHO Transthoracic, Real-Time 2D With Doppler And Color Completed Flow 06/02/2017 43215 ECHO Transthoracic, Real-Time 2D With Doppler And Color Completed Flow 05/17/2017 00779 EKG Tracing & Interpretation Completed 02/25/2017 26876 Stress Test Completed 02/25/2017 89465 Myocardial Perfusion Imaging Tomographic (Spect) Multiple Completed Studies 02/05/2017 12466 EKG Tracing & Interpretation Completed 02/03/2017 15385 Holter Monitor Review (24 hr) review & interp only Completed 02/02/2017 90597 ECG Monitor/Recording W/Visual Superimposition Scanning Completed 01/01/2017 49815 Holter Monitor Review (24 hr) review & interp only Completed 12/30/2016 46740 ECG Monitor/Recording W/Visual Superimposition Scanning Completed 12/29/2016 74556 Holter Monitor Review (24 hr)dr review & interp only Completed 12/29/2016 13337 ECG Monitor/Recording W/Visual Superimposition Scanning Completed 11/24/2016 94944 EKG Tracing & Interpretation Completed 11/20/2016 36127 Holter Monitor Review (24 hr)dr review & interp only Completed 11/13/2016 88349 ECG Monitor/Recording W/Visual Superimposition Scanning Completed 11/12/2016 68072 EKG, Interpretation Only Completed 10/15/2016 74737 Holter Monitor Review (24 hr)dr review & interp only Completed 10/14/2016 37165 ECHO Transthoracic, Real-Time 2D With Doppler And Color Completed Flow 10/14/2016 66351 ECG Monitor/Recording W/Visual Superimposition Scanning Completed 10/08/2016 10421 EKG Tracing & Interpretation Completed 10/04/2016 50298 EKG, Interpretation Only Completed 09/25/2016 47153 EKG, Interpretation Only Completed 09/25/2016 71683 ECHO Transthorasic Realtime 2D W Doppler & Color Flow Hosp Completed 09/24/2016 70641 EKG, Interpretation Only Completed 09/23/2016 26176 Left Heart Cath. Incl S/I Coronaries, Angio S/I V Gram If Completed Done 09/23/2016 44452 EKG, Interpretation Only Completed 09/23/2016 23479 Revascularization Acute Total/Subtotal Occlusion Completed 06/09/2016 93948 EKG Tracing & Interpretation Completed 11/28/2015 40799 EKG Tracing & Interpretation Completed 11/13/2015 17484 Treadmill Interp/Report Only Completed 11/13/2015 53559 Stress Test Supervsn W/Out I/R Completed 10/10/2015 44503 ECHO Stress Test Incl Perf Contiuous ekg Monitoring W/Phys Completed Superv 09/11/2015 25778 EKG Tracing & Interpretation Completed 09/04/2015 10821 EKG Tracing & Interpretation Completed 08/20/2015 00092 EKG Tracing & Interpretation Completed 03/18/2015 01588 ECHO Transthoracic, Real-Time 2D With Doppler And Color Completed Flow 02/26/2015 26672 EKG Tracing & Interpretation Completed 12/20/2014 47653 Polysomnography Sleep Staging 4+ Parameters Completed 10/04/2014 27089 Holter Monitor Review (24 hr)dr review & interp only Completed 09/28/2014 23660 EKG Tracing & Interpretation Completed 06/25/2014 61686 Stress Test Completed 06/25/2014 80120 Myocardial Perfusion Imaging Tomographic (Spect) Multiple Completed Studies 05/24/2014 42805 ECHO Stress Test Incl Perf Contiuous ekg Monitoring W/Phys Completed Superv 05/14/2014 30884 ECHO Transthoracic, Real-Time 2D With Doppler And Color Completed Flow 04/17/2014 81113 Holter Monitor Review (24 hr) review & interp only Completed 04/13/2014 44989 EKG Tracing & Interpretation Completed 08/11/2013 99731 EKG Tracing & Interpretation Completed 12/02/2012 63741 EKG Tracing & Interpretation Completed 04/20/2012 23163 ECHO Stress Test Incl Perf Contiuous ekg Monitoring W/Phys Completed Superv 04/20/2012 30617 ECHO Stress Test Incl Perf Contiuous ekg Monitoring W/Phys Completed Superv 04/07/2012 26941 Holter Monitoring 24 HR New Completed 04/07/2012 38865 ECHO Transthoracic, Real-Time 2D With Doppler And Color Completed Flow 03/18/2012 43933 EKG Tracing & Interpretation Completed 02/18/2012 97866 Holter Monitoring 24 HR New Completed 08/17/2011 08817 EKG Tracing & Interpretation Completed 04/24/2011 62439 Holter Monitor Review (24 hr) review & interp only Completed 12/03/2010 08996 ECHO Stress Test Incl Perf Contiuous ekg Monitoring W/Phys Completed Superv 12/03/2010 06610 Color Flow Doppler/Interp & Reprt Completed 12/03/2010 97052 Pulse Wave/Continuous-Interp.RPT Completed 12/03/2010 90766 ECHO Transthorasic Realtime 2D W Doppler & Color Flow Hosp Completed 12/01/2010 10341 EKG Tracing & Interpretation Completed 10/03/2010 72038 EKG Tracing & Interpretation Completed 03/11/2010 49234 EKG Tracing & Interpretation Completed 08/14/2009 88277 EKG Tracing & Interpretation Completed 07/09/2009 88323 ECHO Stress Test Incl Perf Contiuous ekg Monitoring W/Phys Completed Superv 07/04/2009 56606 ECHO Transthoracic, Real-Time 2D With Doppler And Color Completed Flow 04/02/2009 21424 Holter Monitor Interpretation Completed 03/27/2009 07779 EKG Tracing & Interpretation Completed 12/12/2008 63312 EKG Tracing & Interpretation Completed 07/10/2008 33432 ECHO/Stress Completed 07/10/2008 08542 ECHO/Stress Completed 07/10/2008 23941 Stress Test Completed 07/10/2008 02834 Stress Test Completed 07/10/2008 96467 Stress Test Completed 06/28/2008 47871 Color Doppler Completed 06/28/2008 04942 Color Doppler Completed 06/28/2008 01409 Pulse Doppler & Continuous Wave Completed 06/28/2008 55487 Echocardiogram Completed 06/28/2008 91246 Echocardiogram Completed 06/05/2008 08989 EKG Tracing & Interpretation Completed 06/05/2008 64711 EKG Tracing & Interpretation Completed 12/28/2007 00280 EKG Tracing & Interpretation Completed 08/15/2007 35598 Color Doppler Completed 08/15/2007 11798 Color Doppler Completed 08/15/2007 27736 Pulse Doppler & Continuous Wave Completed 08/15/2007 20959 Pulse Doppler & Continuous Wave Completed 08/15/2007 86136 Pulse Doppler & Continuous Wave Completed 08/15/2007 04417 Echocardiogram Completed 08/15/2007 27460 Echocardiogram Completed 08/09/2007 22887 EKG Tracing & Interpretation Completed 08/09/2007 26249 EKG Tracing & Interpretation Completed 06/22/2007 41404 Left Heart Catheterization Completed 06/22/2007 23276 Inj Proc LFT Vent/LFT Atrl Angio Completed 06/22/2007 58936 Inj Proc LFT Vent/LFT Atrl Angio Completed 06/22/2007 65616 Coronary Angiography Completed 06/22/2007 23486 S/I/R Inj Proc Vent And Or Atrial Completed 06/22/2007 88236 S/I/R Inj Proc Vent And Or Atrial Completed 06/22/2007 80008 Selective Coronary Angioplasty Completed 06/09/2007 48933 EKG Tracing & Interpretation Completed 06/09/2007 97900 EKG Tracing & Interpretation Completed 04/01/2007 60706 EKG Tracing & Interpretation Completed 04/01/2007 02603 EKG Tracing & Interpretation Completed 02/11/2007 85531 Color Flow Doppler/Interp & Reprt Completed 02/11/2007 45112 Color Flow Doppler/Interp & Reprt Completed 02/11/2007 84486 Pulse Wave/Continuous-Interp.RPT Completed 02/11/2007 04048 Echocardiogram Completed 02/11/2007 63506 Echocardiogram Completed 02/11/2007 58522 EKG, Interpretation Only Completed Encounters Type Date Location Provider Dx Diagnosis Office Visit 03/22/2018 [facility] Thi S. R00.0 Tachycardia, 9:00a Feliciano Cadet unspecified I25.2 Old myocardial infarction E78.5 Hyperlipidemia, unspecified I25.10 [place] heart disease of [place] coronary artery w/o ang pctrs Office Visit 10/08/2017 9:00a [facility] Trish S. I48.0 Paroxysmal atrial Of [employer] Foster, N.P. fibrillation I25.10 Athscl heart disease of [place] coronary artery w/o ang pctrs E78.5 Hyperlipidemia, unspecified I49.3 Ventricular premature depolarization R00.0 Tachycardia, unspecified Office Visit 08/10/2017 9:23a [facility] Chao R42 Dizziness and Assoc,ozzy Robison M.D. [address] [facility] I25.2 Old myocardial infarction I48.0 Paroxysmal atrial fibrillation Office Visit 06/28/2017 [place] Thi S. I49.3 Ventricular 9:40a Cardiology Feliciano Cadet premature depolarization E78.5 Hyperlipidemia, unspecified I25.10 Athscl heart disease of [place] coronary artery w/o ang pctrs G47.33 Obstructive sleep apnea (adult) (pediatric) E66.9 Obesity, unspecified Office Visit 05/17/2017 2:00p [facility] Sylvia Moya I49.3 Ventricular PA premature depolarization I25.10 Athscl heart disease of [place] coronary artery w/o ang pctrs I25.5 Ischemic cardiomyopathy E78.5 Hyperlipidemia, unspecified R00.2 Palpitations Office Visit 02/05/2017 8:30a [facility] Sylvia Moya I49.3 Ventricular Of [employer] PA premature depolarization I25.10 Athscl heart disease of [place] coronary artery w/o ang pctrs I25.5 Ischemic cardiomyopathy E78.5 Hyperlipidemia, unspecified Office Visit 01/14/2017 4:00p [place] Thi S. R23.3 Spontaneous Cardiology Feliciano Cadet ecchymoses I25.10 [place] heart disease of [place] coronary artery w/o ang pctrs I25.5 Ischemic cardiomyopathy I49.3 Ventricular premature depolarization I49.1 Atrial premature depolarization E78.5 Hyperlipidemia, unspecified G47.33 Obstructive sleep apnea (adult) (pediatric) R07.9 Chest pain, unspecified Office Visit 12/29/2016 9:00a [facility] Sylvia Moya, I25.5 Ischemic Of [facility] PA cardiomyopathy I25.10 Athscl heart disease of [place] coronary artery w/o ang pctrs E78.5 Hyperlipidemia, unspecified I48.0 Paroxysmal atrial fibrillation Office Visit 11/24/2016 3:20p [facility] Qutaybeh S. R42 Dizziness and Feliciano Cadet giddiness I49.3 Ventricular premature depolarization I25.5 Ischemic cardiomyopathy I25.10 Athscl heart disease of [place] coronary artery w/o ang pctrs G47.33 Obstructive sleep apnea (adult) (pediatric) E78.4 Other hyperlipidemia R94.31 Abnormal electrocardiogram [ECG] [EKG] Office Visit 11/12/2016 [facility] Graciela Coughlin, R20.0 Anesthesia of 9:33a Clinic MD skin R42 Dizziness and giddiness Office Visit 11/12/2016 3:10p [facility] David Eric, M54.2 Cervicalgia Assoc,pc Hospitalists R42 Dizziness and giddiness Office Visit 10/27/2016 [place] Qutaybeh S. I25.5 Ischemic 4:20p Cardiology Feliciano Cadet cardiomyopathy I49.3 Ventricular premature depolarization I25.10 [place] heart disease of [place] coronary artery w/o ang pctrs G47.33 Obstructive sleep apnea (adult) (pediatric) E78.4 Other hyperlipidemia Office Visit 10/08/2016 11:40a [facility] Qutaybeh S. I25.10 Aths[place] heart Of [facility] Feliciano Cadet disease of [place] coronary artery w/o ang pctrs G47.33 Obstructive sleep apnea (adult) (pediatric) E78.4 Other hyperlipidemia E66.9 Obesity, unspecified I48.91 Unspecified atrial fibrillation I25.5 Ischemic cardiomyopathy R94.31 Abnormal electrocardiogram [ECG] [EKG] Office Visit 10/04/2016 2:28p [facility] Rohan Balbuena, R55 Syncope and Assoc,ozzy Wiggins collapse Hospitalists R74.8 Abnormal levels of other serum enzymes I25.10 Athscl heart disease of [place] coronary artery w/o ang pctrs Office Visit 10/03/2016 2:28p [facility] Olayinka Osullivan R55 Syncope and ozzy Thomas II, M.D. collapse Hospitalists R74.8 Abnormal levels of other serum enzymes I25.10 Athscl heart disease of [place] coronary artery w/o ang pctrs Office Visit 09/27/2016 3:55p [facility] José Steele, I21.02 Stemi involving Of [employer] AT [facility], FACC, left anterior FSCAI descending coronary artery Office Visit 09/26/2016 3:53p [facility] José Steele, I21.02 Stemi involving Of [employer] AT [facility], FACC, left anterior FSCAI descending coronary artery Office Visit 09/25/2016 3:43p [facility] José Steele, I21.02 Stemi involving Of [employer] AT [facility], FACC, left anterior FSCAI descending coronary artery Office Visit 09/24/2016 4:22p [facility] José Steele, I21.02 Stemi involving Of [employer] AT [facility], FACC, left anterior FSCAI descending coronary artery I48.91 Unspecified atrial fibrillation Office Visit 09/23/2016 10:56a [facility] José Steele, I21.02 Stemi involving Of [employer] AT [facility], FACC, left anterior FSCAI descending coronary artery I25.10 Athscl heart disease of [place] coronary artery w/o ang pctrs Office Visit 06/09/2016 Isidro Ness S. G47.33 Obstructive sleep 4:20p Kelsey Cadet M.D. apnea (adult) (pediatric) E78.4 Other hyperlipidemia I25.10 [place] heart disease of [place] coronary artery w/o ang pctrs R94.31 Abnormal electrocardiogram [ECG] [EKG] E66.9 Obesity, unspecified Z68.31 Body mass index (BMI) 31.0-31.9, adult Office Visit 11/28/2015 11:00a Isidro Ness S. R07.9 Chest pain, Cardiology Feliciano Cadet unspecified G47.33 Obstructive sleep apnea (adult) (pediatric) E78.4 Other hyperlipidemia I25.10 Athscl heart disease of [place] coronary artery w/o ang pctrs Office Visit 08/20/2015 8:30a [facility] Of LAMONT Louise R00.2 Palpitations [facility] G47.33 Obstructive sleep apnea (adult) (pediatric) I25.10 Athscl heart disease of [place] coronary artery w/o ang pctrs E78.4 Other hyperlipidemia R07.9 Chest pain, unspecified Office Visit 07/14/2015 12:28p [facility] Rohan Esha, R00.2 Palpitations ozzy Thomas M.D. Hospitalists F41.0 Panic disorder without agoraphobia Office Visit 05/21/2015 [facility] G47.33 Obstructive sleep 9:00a Sleep Services Of DALIA Mayers, RN, apnea (adult) [facility] (pediatric) Office Visit 04/29/2015 [facility] Catherineavelino S. G47.33 Obstructive sleep 10:00a Feliciano Cadet apnea (adult) (pediatric) I25.10 [place] heart disease of [place] coronary artery w/o ang pctrs E78.4 Other hyperlipidemia Office Visit 03/19/2015 [facility] 327.23 Obstructive Sleep 9:15a Sleep Services Of DALIA Mayers RN, Apnea Adult & [facility] Pediatric Office Visit 02/26/2015 [facility] Thi S. 327.23 Obstructive Sleep 9:00a Feliciano Cadet Apnea Adult & Pediatric 786.09 Dyspnea & Respiratory Abnormalities Other 272.4 Hyperlipidemia Other Unspec 414.01 Coronary Atherosclerosis [place] 786.50 Pain Chest Unspec Office Visit 01/15/2015 [facility] Ai 327.23 Obstructive Sleep 10:00a Sleep Services Of DALIA Mayers, Apnea Adult & [facility] RN, [facility]- Pediatric Office Visit 11/08/2014 [facility] LAMONT Louise 272.4 Hyperlipidemia 9:30a Other Unspec 276.8 Hypopotassemia 427.69 Premature Beats Other 785.1 Palpitations Office Visit 11/07/2014 10:40a Neurosurgery Nicanor Myers 721.0 Spondylosis Services Of Bernabe Burris M.D. Cervical W/O Myelopathy 721.3 Spondylosis Lumbar W/O Myelopathy 721.2 Spondylosis Thoracic W/O Myelopathy Office Visit 11/05/2014 10:30a Pulmonology And Nuvia 427.69 Premature Beats Sleep Services Of MD Ale Other [employer] 786.09 Dyspnea & Respiratory Abnormalities Other Office Visit 09/28/2014 9:40a [facility] Qutaybeh S. 427.69 Premature Beats Feliciano Cadet Other 414.01 Coronary Atherosclerosis [place] V45.82 Percutaneous Transluminal Coronary Angioplas Postsurg Status 272.4 Hyperlipidemia Other Unspec 276.8 Hypopotassemia Office Visit 06/25/2014 3:01p [facility] Qutaybeh S. 427.69 Premature Beats Of Bernabe Cadet M.D. Other 427.69 Premature Beats Other 414.01 Coronary Atherosclerosis [place] 414.01 Coronary Atherosclerosis [place] 786.50 Pain Chest Unspec 786.50 Pain Chest Unspec V45.82 Percutaneous Transluminal Coronary Angioplas Postsurg Status V45.82 Percutaneous Transluminal Coronary Angioplas Postsurg Status Office Visit 05/24/2014 9:30a [facility] Qutaybeh S. 427.69 Premature Beats Feliciano Cadet Other 414.01 Coronary Atherosclerosis [place] 786.50 Pain Chest Unspec Office Visit 04/13/2014 [facility] Qutaybeh S. 414.01 Coronary 9:20a Kelsey Cadet M.D. Atherosclerosis [place] V45.82 Percutaneous Transluminal Coronary Angioplas Postsurg Status 272.4 Hyperlipidemia Other Unspec 427.69 Premature Beats Other 786.50 Pain Chest Unspec 786.05 Shortness Of Breath Office Visit 08/11/2013 [facility] Qumeliybeh S. 414.01 Coronary 9:00a Kelsey Cadet M.D. Atherosclerosis [place] V45.82 Percutaneous Transluminal Coronary Angioplas Postsurg Status 272.4 Hyperlipidemia Other Unspec 794.31 Electrocardiogram (ECG) (EKG) Abnormal Office Visit 12/02/2012 Isidro Quluigi S. 414.01 Coronary 9:00a Kelsey Cadet M.D. Atherosclerosis [place] V45.82 Percutaneous Transluminal Coronary Angioplas Postsurg Status 272.4 Hyperlipidemia Other Unspec Office Visit 05/04/2012 Isidro Ness S. 414.01 Coronary 9:00a Kelsey Cadet M.D. Atherosclerosis [place] V45.82 Percutaneous Transluminal Coronary Angioplas Postsurg Status 272.4 Hyperlipidemia Other Unspec 427.69 Premature Beats Other Office Visit 03/18/2012 10:40a Isidro Ness SAni 786.50 Pain Chest Feliciano Cadet Unspec 414.01 Coronary Atherosclerosis [place] V45.82 Percutaneous Transluminal Coronary Angioplas Postsurg Status 272.4 Hyperlipidemia Other Unspec 794.31 Electrocardiogram (ECG) (EKG) Abnormal 427.1 Paroxysmal Ventricular Tachycardia 785.1 Palpitations Office Visit 08/17/2011 [facility] Qutaybeh S. 414.01 Coronary 11:20a Kelsey Cadet M.D. Atherosclerosis [place] 786.50 Pain Chest Unspec V45.82 Percutaneous Transluminal Coronary Angioplas Postsurg Status 272.4 Hyperlipidemia Other Unspec 794.31 Electrocardiogram (ECG) (EKG) Abnormal Office Visit 04/24/2011 9:30a Neurosurgery Zaid Devlin 723.4 Brachial Neuritis Services Of Bernabe Chi M.D. 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 729.5 Pain In Limb Office Visit 12/03/2010 Isidro Qumeliybeh S. 414.01 Coronary 11:30a Kelsey Cadet M.D. Atherosclerosis [place] 786.50 Pain Chest Unspec V45.82 Percutaneous Transluminal Coronary Angioplas Postsurg Status Office Visit 12/01/2010 Isidro Qumeliybeh S. 414.01 Coronary 11:00a Kelsey Cadet M.D. Atherosclerosis [place] 786.50 Pain Chest Unspec 272.4 Hyperlipidemia Other Unspec V45.82 Percutaneous Transluminal Coronary Angioplas Postsurg Status Office Visit 10/03/2010 [facility] Qutaybeh S. 414.01 Coronary 12:00p Kelsey Cadet M.D. Atherosclerosis [place] 272.4 Hyperlipidemia Other Unspec 786.50 Pain Chest Unspec Office Visit 03/11/2010 [facility] Qutaybeh S. 414.01 Coronary 9:40a Kelsey Cadet M.D. Atherosclerosis [place] 272.4 Hyperlipidemia Other Unspec Office Visit 08/14/2009 [facility] Qutaybeh S. 414.01 Coronary 9:20a Kelsey Cadet M.D. Atherosclerosis [place] 786.50 Pain Chest Unspec Office Visit 03/27/2009 [facility] Qutaybeh S. 414.01 Coronary 9:20a Kelsey Cadet M.D. Atherosclerosis [place] 785.1 Palpitations 427.69 Premature Beats Other 786.50 Pain Chest Unspec Office Visit 12/12/2008 [facility] Qutaybeh S. 414.01 Coronary 10:40a Kelsey Cadet M.D. Atherosclerosis [place] 272.4 Hyperlipidemia Other Unspec V45.82 Percutaneous Transluminal Coronary Angioplas Postsurg Status 786.50 Pain Chest Unspec Office Visit 07/17/2008 [facility] Qutaybeh S. 414.01 Coronary 10:00a Kelsey Cadet M.D. Atherosclerosis [place] 786.50 Pain Chest Unspec 272.4 Hyperlipidemia Other Unspec Office Visit 06/05/2008 [facility] Qutaybeh S. 414.01 Coronary 11:10a Kelsey Cadet M.D. Atherosclerosis [place] 786.50 Pain Chest Unspec 427.69 Premature Beats Other V45.82 Percutaneous Transluminal Coronary Angioplas Postsurg Status 272.4 Hyperlipidemia Other Unspec Office Visit 12/28/2007 [facility] Qutaybeh S. 414.01 Coronary 9:00a Kelsey Cadet M.D. Atherosclerosis [place] 786.50 Pain Chest Unspec 427.69 Premature Beats Other V45.82 Percutaneous Transluminal Coronary Angioplas Postsurg Status 272.4 Hyperlipidemia Other Unspec Office Visit 08/09/2007 [facility] Qutaybeh S. 414.01 Coronary 11:00a Kelsey Cadet M.D. Atherosclerosis [place] 786.50 Pain Chest Unspec 427.69 Premature Beats Other V45.82 Percutaneous Transluminal Coronary Angioplas Postsurg Status 272.4 Hyperlipidemia Other Unspec Office Visit 06/24/2007 [facility] Qutaybeh S. 414.01 Coronary 2:20p Kelsey Cadet M.D. Atherosclerosis [place] V45.82 Percutaneous Transluminal Coronary Angioplas Postsurg Status 272.4 Hyperlipidemia Other Unspec 786.50 Pain Chest Unspec 427.69 Premature Beats Other Office Visit 06/09/2007 [facility] Qutaybeh S. 414.01 Coronary 3:40p Kelsey Cadte M.D. Atherosclerosis [place] V45.82 Percutaneous Transluminal Coronary Angioplas Postsurg Status 272.4 Hyperlipidemia Other Unspec 786.50 Pain Chest Unspec 427.69 Premature Beats Other Office Visit 04/01/2007 Isidro Miguel 414.01 Coronary 1:40p Cardiology Feliciano Cadet Atherosclerosis [place] V45.82 Percutaneous Transluminal Coronary Angioplas Postsurg Status 272.4 Hyperlipidemia Other Unspec 786.50 Pain Chest Unspec Plan of Treatment Future Appointment(s):07/12/2018 10:00 am - Trish Denny N.PAni at [facility]03/22/2018 - Thi Cadet M.D.R00.0 Tachycardia, ntkcjjitmzmY29.2 Old myocardial infarctionFollow up:7 months ovE78.5 Hyperlipidemia, mexldhpokwyE66.10 Atherosclerotic heart disease of [place] coronary artery without angina pectoris
[2018-08-07 11:36] LABS: ABS Basophils 0.1 10^3/ul (0-0.2); ABS Eosinophils 0.2 10^3/ul (0-0.6); ABS Lymphocytes 1.7 10^3/ul (1.0-4.8); ABS Monocytes 0.7 10^3/ul (0-0.8); ABS Neutrophils 5.7 10^3/ul (1.5-7.7); ABS Nucleated RBC 0 10^3/ul; Eosinophil % 2.6 %; Hematocrit 46 % (42-52); Hemoglobin 15.2 g/dl (14.0-18.0); Lymphocyte % 20.8 %; Mean Corpuscular HGB Conc 33 g/dl (31-36); Mean Corpuscular Hemoglobin 30 pg (27-31); Mean Corpuscular Volume 89 fL (80-94); Mean Platelet Volume 7.8 fL (7.4-10.4); Nucleated Red Blood Cells % 0; Platelet Count 237 10^3/ul (150-450); Red Blood Count 5.13 10^6/ul (4.00-5.40); Red Cell Distribution Width 14 % (10.5-15); White Blood Count 8.3 10^3/ul (3.5-10.8)
[2018-08-07] MEDS ORDERED: Al Hydrox/Mg Hydrox/Simet LIQ* 30 ML UDC PO ONE (11:36)
[2018-08-07] MEDS ORDERED: Lidocaine 2% VISCOUS* 15 ML UDC PO ONE (11:36)
[2018-08-07 11:44] LABS: Urine Appearance Clear; Urine Bilirubin Negative (Negative); Urine Blood Negative (Negative); Urine Color Yellow; Urine Glucose Negative (Negative); Urine Ketones Negative (Negative); Urine Nitrite Negative (Negative); Urine Protein Negative (Negative); Urine Specific Gravity 1.018 (1.010-1.030); Urine Urobilinogen Negative (Negative)
[2018-08-07 11:51] LABS: Activated Partial Thrombo Time 29.7 seconds (26.0-36.3); INR 0.96 (0.77-1.02)
[2018-08-07 11:53] LABS: Albumin 3.9 g/dL (3.2-5.2); Albumin/Globulin Ratio 1.3 (1-3); BUN/Creatinine Ratio 16.7 (8-20); C Reactive Protein 1.13 mg/L (<8.01); Calcium 9.2 mg/dL (8.6-10.3); EGFR Non-African American 65.1 (>60); Potassium 4.5 mmol/L (3.5-5.0); Total Bilirubin 0.4 mg/dL (0.2-1.0); Total Protein 6.9 g/dL (6.4-8.9)
[2018-08-07 12:38] VITALS: BP 160/97
== END 2018-08-07 12:38 | disposition home or self-care (01) ==
LOC: ED 10:59
DX: R10.13 Epigastric pain (principal); M54.9 Dorsalgia, unspecified; R11.0 Nausea; K21.9 Gastro-esophageal reflux disease without esophagitis
CPT/HCPCS: 36415; 80053; 81003; 82550; 83605; 83690; 83735; 83880; 84484; 85025; 85610; 85730; 86140; 93005; 99283; A9270-GY

== ENCOUNTER 2019-07-22 03:58 | Emergency (ER) | payer OTHER ==
--- OUTSIDE RECORDS SUMMARY | 2019-07-22 04:06 | XMS REPORT | Continuity of Care Document ---
:1955 External Reference #:[id number] Author Name Thi Cadet M.D. (transmitted by agent of provider Yesenia Amaral) Address [address] [place] [id number] Care Team Providers Name Role Phone Colleen Oneill FNP - Nurse Care Team Information Media Planner / Buyer [phone] Practitioner Jensen Galindo MD - Orthopaedic Care Team Information Media Planner / Buyer Surgery Patient's Choice Care Team Information Media Planner / Buyer Unavailable Problems Active Problems Provider Date Coronary arteriosclerosis Thi Cadet M.D. Onset: 08/17/2011 Chest pain Thi Cadet M.D. Onset: 08/17/2011 Patient post percutaneous transluminal Thi Cadet M.D. Onset: coronary angioplasty Hyperlipidemia Thi Cadet M.D. Onset: 08/17/2011 Electrocardiogram abnormal Thi Cadet M.D. Onset: 08/17/2011 Paroxysmal ventricular tachycardia Thi Cadet M.D. Onset: 2011 Palpitations Thi Cadet M.D. Onset: 03/18/2012 Premature beats Thi Cadet M.D. Onset: 05/04/2012 Dyssomnia Nuvia Aguilera MD Onset: 11/05/2014 Cervical spondylosis without Nicanor Burris M.D. Onset: 11/07/2014 myelopathy Lumbosacral spondylosis without Nicanor Burris M.D. Onset: 11/07/2014 myelopathy Obstructive sleep apnea of adult Ai Mayers DNP, RN, Onset: 01/15/2015 [facility] Social History Type Date Description Comments Sex Unknown ETOH Use Denies alcohol use Recreational Drug Use Never Used Drugs Tobacco Use Start: Unknown Patient has never smoked Smoking Status Reviewed: 05/24/19 Patient has never smoked Exercise Type/Frequency Exercises regularly walks if back discomfort permits Allergies, Adverse Reactions, Alerts Active Allergies Reaction Severity Comments Date Tetracycline rash 04/01/2007 Belladonna "overdose reaction" 12/01/2010 Contrast Dye 10/08/2016 Statins 10/08/2017 Medications Active Medications SIG Qnty Indications Ordering Date Provider Ryderor-Kimo 10 2 tabs once a day as 360tabs Qutaybeh S. 08/14/2015 10Meq needed Feliciano Cadet Tablets ER Tylenol Extra 1 tablet by mouth as 100tabs Qutaybeh S. 08/09/2007 Strength needed Feliciano Cadet 500mg. Tablets Asa 1 po qd 30units Unknown 81mg Cpap at hs (patient has Unknown Device not used consistently in past month 02/05/17) Toprol XL 1 by mouth every Qutaybeh S. 25mg evening Feliciano Cadet Tablets ER 24HR Meclizine HCL take 1 tablet by Unknown 25mg mouth three times a Tablets day if needed for dizziness Ibuprofen 1 tablet by mouth as Unknown 200mg needed Tablets Medications Administered in Office Medication SIG Qnty Indications Ordering Provider Date Technetium TC 99M Ismael Luna DO [facility] 02/25/2017 Tetrofosmin, Per Unit Dose Up To 40 Millicuries Injection Technetium TC 99M Jaime Bolivar M.D. 06/25/2014 Tetrofosmin, Per Unit Dose Up To 40 Millicuries Injection Immunizations Description No Information Available Vital Signs Date Vital Result Comment 05/24/2019 3:04pm Height 70 inches 5'10" Weight 237.00 lb with shoes Heart Rate 88 /min BP Systolic Sitting 166 mmHg Lue (regular cuff) BP Diastolic Sitting 100 mmHg Lue (regular cuff) BP Systolic Standing 160 mmHg BP Diastolic Standing 98 mmHg BMI (Body Mass Index) 34.0 kg/m2 Ejection Fraction 55-60% Echocardiogram 09/06/2018 10/04/2018 10:50am Height 70 inches 5'10" Weight 238.50 lb Heart Rate 96 /min BP Systolic Sitting 158 mmHg LA, reg (just came up stairs) BP Diastolic Sitting 88 mmHg LA, reg (just came up stairs) BP Systolic Standing 164 mmHg LA, reg BP Diastolic Standing 88 mmHg LA, reg BMI (Body Mass Index) 34.2 kg/m2 Ejection Fraction 55%-60% echo 09/06/18 Results Description No Information Available Procedures Date Code Description Status 05/24/2019 44305 EKG Tracing & Interpretation Completed Medical Devices Description No Information Available Encounters Description No Information Available Assessments Date Code Description Provider 05/24/2019 I25.10 Atherosclerotic heart disease of Thi Cadet M.D. [place] coronary artery with 05/24/2019 I25.2 Old myocardial infarction Thi Cadet M.D. 05/24/2019 E78.5 Hyperlipidemia, unspecified Thi Cadet M.D. 05/24/2019 E66.9 Obesity, unspecified Thi Cadet M.D. 05/24/2019 I77.819 Aortic ectasia, unspecified site Thi Cadet M.D. 05/24/2019 G47.33 Obstructive sleep apnea (adult) Thi Cadet M.D. (pediatric) Plan of Treatment 05/24/2019 - Thi Cadet M.D.I25.10 Atherosclerotic heart disease of [place] coronary artery withFollow up:9 months ovI25.2 Old myocardial wgwqsysbntK88.5 Hyperlipidemia, zmkjfcwhuorB80.9 Obesity, bmyegczfsdaQ54.819 Aortic ectasia, unspecified siteNew Orders:Echocardiogram, Ordered: G47.33 Obstructive sleep apnea (adult) (pediatric) Functional Status Description No Information Available Mental Status Description No Information Available Referrals Description No Information Available
--- NOTE | 2019-07-22 04:07 | ED ---
Abdominal Pain/Male - HPI Summary HPI Summary: This pt is a 63 Y/O M presenting to [facility] with a CC of epigastric pain, rated a 3/10, that started at 0130 with associated nausea and vomiting that woke him up this morning. He states that the pain radiated to his umbilical region and is still present but is less severe than the onset. He denies any recent fevers, headaches, SOB, CP, and diaphoresis. He states that there was no pain at the onset but the pain occurred after he vomited. He states that he has no aggravating factors. He was given Zofran enroute to [facility] and states that the medication helped. He has had recent MD 2 years ago. He states that the symptoms tonight are different then when he had his MD. He has a PMHx of a MD, GERD, and CAD. - History of Current Complaint Chief Complaint: EDAbdPain Stated Complaint: ABD PAIN PER EMS Time Seen by Provider: 07/22/19 04:02 Hx Obtained From: Patient Onset/Duration: Sudden Onset, Lasting Hours - 3, Still Present Timing: Constant Severity Initially: Moderate Severity Currently: Mild Pain Intensity: 3 Pain Scale Used: 0-10 Numeric Location: Epigastric Radiates: Yes Radiates to: Other - umbilical Aggravating Factor(s): Nothing Alleviating Factor(s): Other: - Zofran via EMS Associated Signs And Symptoms: Positive: Negative - SOB, headaches, Nausea, Vomiting. Negative: Diaphoresis, Fever, Chest Pain - Allergies/Home Medications Allergies/Adverse Reactions: Allergies Allergy/AdvReac Type Severity Reaction Status Date / Time tetracycline Allergy Mild Itching Verified 07/22/19 05:08 belladonna alkaloids Allergy Unknown Verified 07/22/19 05:08 Reaction Details Iodinated Contrast Media AdvReac Agitation Verified 07/22/19 05:08 [Iodinated Contrast- Oral and IV Dye] PMH/Surg Hx/FS Hx/Imm Hx Previously Healthy: Yes Endocrine/Hematology History: Reports: Other Endocrine/Hematological Disorders - hx elevated CK (undx'ed etiology) and hypokalemia (undx'd etiology) Denies: Hx Diabetes Cardiovascular History: 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, midsternal, upper ribs, Hx Cardiac Arrest - Vfib arrest on cath table for STEMI 09/2016, defibrillated x 3, then afib , Hx Coronary Artery Disease, Hx Myocardial Infarction Denies: Hx Congestive Heart Failure, Hx Hypercholesterolemia, Hx Hypertension , Hx Pacemaker/ICD, Hx Valvular Heart Disease Respiratory History: Denies: Hx Asthma, Hx Chronic Obstructive Pulmonary Disease (COPD) GI History: Reports: Hx Gastroesophageal Reflux Disease History: Denies: Hx Dialysis, Hx Renal Disease Musculoskeletal History: Reports: Other Musculoskeletal History - Herniated discs in the C-spine Sensory History: Reports: Hx Contacts or Glasses Denies: Hx Hearing Aid Opthamlomology History: Reports: Hx Contacts or Glasses Psychiatric History: Denies: Hx Panic Disorder - Cancer History Hx Chemotherapy: No Hx Radiation Therapy: No - Surgical History Surgical History: Yes Surgery Procedure, Year, and Place: cardiac stent 2006 [employer] [facility] CLEARED FOR 1.5 OR 3T SGF 700G/CM PER [facility] IN NORMAL OPERATING SCAN MODE. CARDIAC STENT SEPTEMBER 23, 2016- [facility] STENT - Immunization History Date of Tetanus Vaccine: unk Date of Influenza Vaccine: none Immunizations Up to Date: Yes Infectious Disease History: Denies: Traveled Outside the [place] in Last 30 Days - Family History Known Family History: Positive: Blood Disorder Negative: Cardiac Disease, Hypertension - Social History Occupation: Retired Lives: With Family Alcohol Use: None Hx Substance Use: No Substance Use Type: Reports: None Hx Tobacco Use: No Smoking Status (MU): Never Smoked Tobacco Review of Systems Negative: Fever, Skin Diaphoresis Negative: Chest Pain Negative: Shortness Of Breath Positive: Abdominal Pain - epigastric, radiated to umbilical , Vomiting, Nausea Negative: Headache All Other Systems Reviewed And Are Negative: Yes Physical Exam Triage Information Reviewed: Yes Vital Signs On Initial Exam: Temp Pulse Resp BP SpO2 FiO2 Vital Signs Reviewed: Yes Procedures - Sedation Patient Received Moderate/Deep Sedation with Procedure: No Diagnostics - Laboratory Result Diagrams: 07/22/19 04:11 07/22/19 04:11 Lab Statement: Any lab studies that have been ordered have been reviewed, and results considered in the medical decision making process. - EKG 0424 Cardiac Rate: NL - 83 BPM EKG Rhythm: Sinus Rhythm ST Segment: Normal Ectopy: None Summary of EKG Findings: NSR at 83 BPM, P waves, QRS complex, and T waves are within normal limits, T waves and intervals are normal, no ischemic changes. This is a normal EKG. Interpreted by Dr. Allen at 07/22/19 0427 Re-Evaluation - Re-Evaluation First Eval Re-Evaluation Time: 05:15 Change: Worse Comment: pt received morphine for the pain; he states that his face became numb and he felt increasingly nauseas. He states that he felt like someone punched his stomach. He will be given Fentanyl instead. Abdominal Pain Male Course/Dx - Course Course Of Treatment: This pt is a 63 Y/O M presenting to [facility] with a CC of epigastric pain that started at 0130 with associated nausea and vomiting that woke him up this morning. He states that the pain radiated to his umbilical region and is still present but is less severe than the onset. He denies any recent fevers, headaches, SOB, CP, and diaphoresis. His PE found no acute abnormalities. His EKG at 0424 shows a NSR at 83 BPM, P waves, QRS complex, and T waves are within normal limits, T waves and intervals are normal, no ischemic changes. This is a normal EKG. He has abnormal laboratory values in WBC Absolute Neuts, Lymphs, and Monos. 0515 pt received morphine for the pain; he states that his face became numb and he felt increasingly nauseas. He states that he felt like someone punched his stomach. He will be given Fentanyl instead. This pt will be a sign out to Dr. Johnson from Dr. Allen at shift change 0700 07/22/[address] A/P and disposition. - Diagnoses Provider Diagnoses: Abdominal pain, Nausea and vomiting Discharge ED - Sign-Out/Discharge Documenting (check all that apply): Sign-Out Patient Signing out patient TO: Perri Johnson - Discharge Plan Condition: Stable Disposition: HOME Prescriptions: Ondansetron ODT TAB* [Zofran 4 MG Odt TAB*] 4 mg PO Q8H PRN 4 Days #12 tab.odt PRN Reason: Nausea/Vomiting Patient Education Materials: Acute Nausea and Vomiting (ED) Referrals: Vanessa Gonzalez [Nurse Practitioner] - Additional Instructions: You were seen in the emergency department for nausea, vomiting abdominal pain. Your CT scan was consistent with gastroenteritis. You can take zofran as needed for nausea. Please follow up with your primary care doctor in next 2-3 days and return to emergency department for worsening abdominal pain, fevers, chest pain or concerning symptoms. It was a pleasure taking care of you today. - Billing Disposition and Condition Condition: STABLE Disposition: Home - Attestation Statements Document Initiated by Telly: Yes Documenting Scribe: John Teran Provider For Whom Telly is Documenting (Include Credential): Javad Allen MD Scribe Attestation: IJohn, scribed for Javad Allen MD on 07/22/19 at 2321. Scribe Documentation Reviewed: Yes Provider Attestation: The documentation as recorded by the John marroquin accurately reflects the service I personally performed and the decisions made by me, Javad Allen MD Status of Scribe Document: Viewed
[2019-07-22 04:18] LABS: ABS Eosinophils 0.1 10^3/ul (0-0.6); ABS Lymphocytes 0.7 10^3/ul (1.0-4.8); ABS Monocytes 0.9 10^3/ul (0-0.8); ABS Neutrophils 13.8 10^3/ul (1.5-7.7); Eosinophil % 0.4 %; Hematocrit 45 % (42-52); Lymphocyte % 4.3 %; Mean Corpuscular HGB Conc 34 g/dL (31-36); Mean Corpuscular Hemoglobin 30 pg (27-31); Mean Corpuscular Volume 89 fL (80-94); Mean Platelet Volume 7.7 fL (7.4-10.4); Platelet Count 233 10^3/uL (150-450); Red Blood Count 5.02 10^6 /uL (4.18-5.48); Red Cell Distribution Width 14 % (10-15); White Blood Count 15.5 10^3/uL (3.5-10.8)
[2019-07-22 04:34] LABS: ALT 28 U/L (7-52); AST 36 U/L (13-39); Albumin 4.2 g/dL (3.2-5.2); Albumin/Globulin Ratio 1.4 (1-3); Alkaline Phosphatase 92 U/L (34-104); Anion Gap 5 mmol/L (2-11); BUN/Creatinine Ratio 20.7 (8-20); Blood Urea Nitrogen 23 mg/dL (6-24); C Reactive Protein 2.55 mg/L (<8.01); CO2 Carbon Dioxide 26 mmol/L (22-32); Calcium 8.6 mg/dL (8.6-10.3); Chloride 106 mmol/L (101-111); EGFR Non-African American 66.9 (>60); Glucose 112 mg/dL (70-100); Potassium 4.5 mmol/L (3.5-5.0); Sodium 137 mmol/L (135-145); Total Protein 7.2 g/dL (6.4-8.9)
[2019-07-22] MEDS ORDERED: Morphine 10 MG/ML VIAL (1 ml) IV ONE (05:03)
[2019-07-22] MEDS ORDERED: diPHENhydraMINE IV* 50 MG/ML 1 ml VIAL (BENADRYL) SLOW PUSH ONE (05:14)
[2019-07-22] MEDS ORDERED: fentaNYL* 50 MCG/ML 2 ML VIAL (100 MCG VIAL) IV SLOW PU ONE (05:14)
[2019-07-22] MEDS ORDERED: NS 0.9% 1000 ML** 1,000 ML IV ONE (07:13)
--- NOTE | 2019-07-22 07:16 | ED ---
Progress - Progress Note Progress Note: Patient is a sign-out at 07:00 on 07/22/[address] Javad Allen MD to Dr. Perri Johnson MD at shift change, pending imaging, further workup, and disposition. Patient will be discharged with a diagnosis of nausea and vomiting. Follow up with PCP in 2-3 days. - Results/Orders Results/Orders: Abdomen/Pelvis CT IMPRESSION: Nonspecific prominent loops of fluid-filled small bowel noted. Re-Evaluation - Re-Evaluation First Eval Re-Evaluation Time: 05:15 Change: Worse Comment: pt received morphine for the pain; he states that his face became numb and he felt increasingly nauseas. He states that he felt like someone punched his stomach. He will be given Fentanyl instead. Second Eval Re-Evaluation Time: 08:00 Change: Improved - CT w small bowel fluid likely 2/2 gastroentertitis. tolerating PO. Abd soft. D/c w zofran Course/Dx - Course Course Of Treatment: This pt is a 63 Y/O M presenting to [facility] with a CC of epigastric pain that started at 0130 with associated nausea and vomiting that woke him up this morning. He states that the pain radiated to his umbilical region and is still present but is less severe than the onset. He denies any recent fevers, headaches, SOB, CP, and diaphoresis. His PE found no acute abnormalities. His EKG at 0424 shows a NSR at 83 BPM, P waves, QRS complex, and T waves are within normal limits, T waves and intervals are normal, no ischemic changes. This is a normal EKG. He has abnormal laboratory values in WBC Absolute Neuts, Lymphs, and Monos. 0515 pt received morphine for the pain; he states that his face became numb and he felt increasingly nauseas. He states that he felt like someone punched his stomach. He will be given Fentanyl instead. This pt will be a sign out to Dr. Johnson from Dr. Allen at shift change 0700 07/22/[address] A/P and disposition. - Diagnoses Provider Diagnoses: Abdominal pain, Nausea and vomiting Discharge ED - Sign-Out/Discharge Documenting (check all that apply): Patient Departure - Discharge, Receiving Sign-Out Receiving patient FROM: Javad Allen - Patient is a sign-out at 07:00 on 07/[address] Javad Allen MD to Dr. Perri Johnson MD at shift change, pending imaging, further workup, and disposition. - Discharge Plan Condition: Stable Disposition: HOME Prescriptions: Ondansetron ODT TAB* [Zofran 4 MG Odt TAB*] 4 mg PO Q8H PRN 4 Days #12 tab.odt PRN Reason: Nausea/Vomiting Patient Education Materials: Acute Nausea and Vomiting (ED) Referrals: Vanessa Gonzalez [Nurse Practitioner] - Additional Instructions: You were seen in the emergency department for nausea, vomiting abdominal pain. Your CT scan was consistent with gastroenteritis. You can take zofran as needed for nausea. Please follow up with your primary care doctor in next 2-3 days and return to emergency department for worsening abdominal pain, fevers, chest pain or concerning symptoms. It was a pleasure taking care of you today. - Billing Disposition and Condition Condition: STABLE Disposition: Home - Attestation Statements Document Initiated by Scribe: Yes Documenting Scribe: Zehra Perez Provider For Whom Telly is Documenting (Include Credential): Perri Johnson MD Scribe Attestation: I, Zehra Perez, scribed for Perri Johnson MD on 07/22/19 at 0816. Scribe Documentation Reviewed: Yes Provider Attestation: The documentation as recorded by the scribeZehra accurately reflects the service I personally performed and the decisions made by me, Perri Johnson MD Status of Scribe Document: Viewed
[2019-07-22 08:56] VITALS: BP 145/75
== END 2019-07-22 08:30 | disposition home or self-care (01) ==
LOC: ED 03:58
DX: R10.9 Unspecified abdominal pain (principal); R11.2 Nausea with vomiting, unspecified; I25.10 Atherosclerotic heart disease of native coronary artery without angina pectoris; I48.91 Unspecified atrial fibrillation; I25.2 Old myocardial infarction; Z86.74 Personal history of sudden cardiac arrest; K21.9 Gastro-esophageal reflux disease without esophagitis; Z95.5 Presence of coronary angioplasty implant and graft; Z88.8 Allergy status to other drugs, medicaments and biological substances; Z88.1 Allergy status to other antibiotic agents; Z91.041 Radiographic dye allergy status
CPT/HCPCS: 36415; 74176; 80053; 83690; 84484; 85025; 86140; 93005; 96374; 96375; 99285; J1200; J2270; J3010